=== PATIENT | male | born 1950 | race Caucasian/White ===

== ENCOUNTER 2017-08-24 15:10 | Emergency (ER) | payer SELFPAY ==
[2017-08-24 16:07] VITALS: BP 168/89
--- NOTE | 2017-08-24 16:07 | ER Document Report ---
ED General - General Chief Complaint: Blood Pressure Problem Stated Complaint: BLOOD PRESSURE PROBLEM Time Seen by Provider: 08/24/17 15:51 TRAVEL OUTSIDE OF THE [place] IN LAST 30 DAYS: No - HPI Patient complains to provider of: high blood pressure Onset: Just prior to arrival Notes: Patient states that he had a headache today. He took his blood pressure at [facility] and it was high. He then went to an urgent care where it was also high so he was sent here for evaluation. Patient states he has noHeadache at all. He does not have a history of hypertension. He has no other symptoms. - Related Data Allergies/Adverse Reactions: No Known Allergies Allergy (Unverified 08/01/15 11:38) Past Medical History - General Information source: Patient - Social History Smoking Status: Former Smoker Chew tobacco use (# tins/day): No Frequency of alcohol use: None Drug Abuse: None Family History: Reviewed & Not Pertinent Patient has suicidal ideation: No Patient has homicidal ideation: No - Past Medical History Cardiac Medical History: Reports: None Pulmonary Medical History: Reports: None Endocrine Medical History: Reports: Hx Hyperthyroidism, Hx Hypothyroidism Other: Patient had A thyroid tumor which was surgically removed July 2015 and the patient has been on thyroid replacement ever since. Renal/ Medical History: Reports: None. Denies: Hx Peritoneal Dialysis Malignancy Medical History: Reports None GI Medical History: Reports: None Musculoskeltal Medical History: Reports None Skin Medical History: Reports None Psychiatric Medical History: Reports: None Traumatic Medical History: Reports: None Infectious Medical History: Reports: None Past Surgical History: Reports: Hx Thyroid Surgery Review of Systems - Review of Systems Constitutional: No symptoms reported EENT: No symptoms reported Cardiovascular: No symptoms reported Respiratory: No symptoms reported Gastrointestinal: No symptoms reported Genitourinary: No symptoms reported Male Genitourinary: No symptoms reported Musculoskeletal: No symptoms reported Skin: No symptoms reported Hematologic/Lymphatic: No symptoms reported Neurological/Psychological: No symptoms reported Physical Exam - Vital signs Vitals: Temp Pulse Resp BP Pulse Ox 98.5 F 58 L 16 161/95 H 96 08/24/17 15:37 08/24/17 15:37 08/24/17 15:37 08/24/17 15:37 08/24/17 15:37 - Notes Notes: PHYSICAL EXAMINATION: GENERAL: Well-appearing, well-nourished and in no acute distress. HEAD: Atraumatic, normocephalic. EYES: Pupils equal round and reactive to light, extraocular movements intact, sclera anicteric, conjunctiva are normal. ENT: Nares patent, oropharynx clear without exudates. Moist mucous membranes. Healed surgical incisional scar to neck NECK: Normal range of motion, supple without lymphadenopathy LUNGS: Breath sounds clear to auscultation bilaterally and equal. No wheezes rales or rhonchi. HEART: Regular rate and rhythm without murmurs ABDOMEN: Soft, nontender, nondistended abdomen. No guarding, no rebound. No masses appreciated. Musculoskeletal: Normal range of motion, no pitting or edema. No cyanosis. NEUROLOGICAL: Cranial nerves grossly intact. Normal speech, normal gait. Normal sensory, motor exams PSYCH: Normal mood, normal affect. SKIN: Warm, Dry, normal turgor, no rashes or lesions noted. Course - Re-evaluation Re-evalutation: 08/24/17 16:46 I did talk to the patient extensively. I did tell him that we do not treat hypertension On a 1 time basis of a high reading. Patient denies history of hypertension in the past. I did tell him that hypertension can result from different things including white coat hypertension, stressors, medications or even illness. I told him to please go to [employer] a few times a week or invest in a blood pressure cuff from [employer] or another store where he can take his blood pressure and monitor it in a book a few times a week. I told him if he was symptomatic with headache or any other symptoms he was to record his blood pressure and then write down what he was feeling. Patient states he does not have insurance and he does not have a primary medical doctor. I did tell him to follow-up the care clinic. I told him he could always come back here if he was having any symptoms related to his high blood pressure.When I was talking to the patient he did tell me that he was taking a [employer] brand [id number] nasal decongestant. When I looked it up it did contain pseudoephedrine. He states he was taking it a few times daily in the last few weeks in order to prevent himself from getting ill.I told him to please refrain from this as the medication can in itself cause hypertension and headaches as well as jitteriness and insomnia.Patient verbalized understanding. He was agreeable to the discharge plan.He was discharged home in stable condition. - Vital Signs Vital signs: Temp Pulse Resp BP Pulse Ox 98.1 F 81 18 168/89 H 98 08/24/17 16:05 08/24/17 16:05 08/24/17 16:05 08/24/17 16:05 08/24/17 16:05 - EKG Interpretation by Me Rate: Normal - 60 bpm Temple/QRS: RBBB When compared to previous EKG there are: No significant change Discharge - Discharge Clinical Impression: High blood pressure Condition: Stable Disposition: HOME, SELF-CARE Instructions: High Blood Pressure ([facility]) Additional Instructions: Please stop taking the pseudoephedrine nasal spray as we described.Please purchase a blood pressure monitor or go to [employer] a few times a week to take your blood pressure and documented in a book.Please follow-up with the care clinic and bring this book with you so they can see how your blood pressures are running.Please follow-up in September or October as you stated for your thyroid check.Return to the emergency department if you have worsening symptoms or any other concerns. Referrals: [facility] [Provider Group] - Follow up in 3-5 days (Call in a.m. for follow-up appointment.)
--- NOTE | 2017-08-24 18:53 | EKG REPORT ---
SEVERITY:- ABNORMAL ECG - SINUS RHYTHM RIGHT BUNDLE BRANCH BLOCK : Confirmed by: Rizwan Gore MD 24-Aug-2017 18:53:07
== END 2017-08-24 16:12 | disposition home or self-care (01) ==
LOC: ER 15:10
DX: R03.0 Elevated blood-pressure reading, without diagnosis of hypertension (principal); R51 Headache; E03.9 Hypothyroidism, unspecified; Z87.891 Personal history of nicotine dependence
CPT/HCPCS: 93005; 93010; 99283

== ENCOUNTER 2017-08-26 14:01 | Emergency (ER) | payer SELFPAY ==
--- NOTE | 2017-08-26 14:26 | ER Document Report ---
ED Blood Pressure Problem - General Chief Complaint: High Blood Pressure Stated Complaint: BLOOD PRESSURE PROBLEM Time Seen by Provider: 08/26/17 14:19 Notes: This is a 67-year-old male to emergency department chief complaint of persistent headaches as well as hypertension. Was seen here a few days ago. Blood pressure was fairly unremarkable and was able to be discharged. Today presents with worsening headaches and went to a local pharmacy and did his blood pressure and it was noted to be high. Patient presented here for further evaluation. States he has previous history of 40+ year smoking history. History of thyroid resection on replacement therapy. Also had some abnormal chest mass which was removed a few years ago but was apparently not malignant. Does not take any blood pressure medications. Only medications he has been taking recently is [id number] cold medication with phenylephrine. Patient states that he thought it was okay to take because it said it did not have Sudafed in it. TRAVEL OUTSIDE OF THE [place] IN LAST 30 DAYS: No - HPI Patient complains to provider of: High blood pressure Onset: Last week Onset/Duration: Gradual, Constant Severity: Moderate Pain Level: 3 Associated symptoms: Headache. denies: Chest pain, Dizziness - Related Data Allergies/Adverse Reactions: No Known Allergies Allergy (Verified 08/26/17 14:02) Past Medical History - General Information source: Patient - Social History Smoking Status: Former Smoker Cigarette use (# per day): No Chew tobacco use (# tins/day): No Frequency of alcohol use: None Drug Abuse: None Lives with: Spouse/Significant other Family History: Reviewed & Not Pertinent Patient has suicidal ideation: No Patient has homicidal ideation: No - Past Medical History Cardiac Medical History: Reports: Hx Hypertension Pulmonary Medical History: Reports: Hx COPD Neurological Medical History: Reports: Other - Frequent headaches Endocrine Medical History: Reports: Hx Hyperthyroidism, Hx Hypothyroidism Renal/ Medical History: Denies: Hx Peritoneal Dialysis Past Surgical History: Reports: Hx Thyroid Surgery Review of Systems - Review of Systems Constitutional: denies: Fever, Malaise, Weakness EENT: denies: Blurred vision, Tearing, Double vision, Sinus pressure, Sinus discharge, Throat pain, Difficulty swallowing Cardiovascular: denies: Chest pain, Palpitations, Heart racing, Dizziness, Edema Respiratory: Short of breath. denies: Cough, Hurts to breathe, Wheezing Gastrointestinal: denies: Abdominal pain, Diarrhea, Nausea, Vomiting Genitourinary: denies: Burning, Dysuria, Discharge Musculoskeletal: denies: Back pain, Gout, Joint pain, Joint swelling, Muscle pain Skin: denies: Change in color, Dryness, Lesions, Rash Hematologic/Lymphatic: denies: Anemia, Blood clots, Easy bleeding, Easy bruising Neurological/Psychological: Headaches. denies: Paralysis, Seizure, Lost consciousness, Speech impairment, Numbness, Tingling, Tremor Physical Exam - Vital signs Vitals: Temp Pulse Resp BP Pulse Ox 98.1 F 57 L 16 159/86 H 97 08/26/17 14:06 08/26/17 14:06 08/26/17 14:06 08/26/17 14:06 08/26/17 14:06 Interpretation: Normal - General General appearance: Appears well, Alert - HEENT Head: Normocephalic, Atraumatic Eyes: Normal Pupils: PERRL - Respiratory Respiratory status: No respiratory distress Chest status: Nontender Breath sounds: Normal Chest palpation: Normal - Cardiovascular Rhythm: Regular Heart sounds: Normal auscultation Murmur: No - Abdominal Inspection: Normal Distension: No distension Bowel sounds: Normal Tenderness: Nontender Organomegaly: No organomegaly - Back Back: Normal, Nontender - Extremities General upper extremity: Normal inspection, Nontender, Normal color, Normal ROM , Normal temperature General lower extremity: Normal inspection, Nontender, Normal color, Normal ROM , Normal temperature, Normal weight bearing. No: Anny's sign - Neurological Neuro grossly intact: Yes Cognition: Normal Orientation: AAOx4 Sandra Coma Scale Eye Opening: Spontaneous Sandra Coma Scale Verbal: Oriented [place] Coma Scale Motor: Obeys Commands Sandra Coma Scale Total: 15 Speech: Normal Motor strength normal: LUE, RUE, LLE, RLE Sensory: Normal - Psychological Associated symptoms: Normal affect, Normal mood - Skin Skin Temperature: Warm Skin Moisture: Dry Skin Color: Normal Course - Re-evaluation Re-evalutation: 08/26/17 14:53 At this time based on the fact the patient's blood pressure is 190/100 will order labs, EKG, cardiac labs, BMP, chest x-ray. I am also concerned about his headaches with his blood pressure. Unlikely there will be anything abnormal on his brain however his heart rate is actually 56 so we will order a CT head with and without to look for any brain abnormalities. 08/26/17 18:[address] brain unremarkable. Blood pressure coming down nicely. Will start patient on some losartan. Advised him to follow-up with his regular doctor soon as possible for further treatment. Patient is comfortable with this plan. Will DC at this time in stable condition. - Vital Signs Vital signs: Temp Pulse Resp BP Pulse Ox 98.1 F 57 L 18 152/95 H 94 08/26/17 14:06 08/26/17 14:06 08/26/17 18:01 08/26/17 18:01 08/26/17 18:01 - Laboratory Result Diagrams: 08/26/17 14:39 08/26/17 14:39 Laboratory results interpreted by me: 08/26/17 08/26/17 08/26/17 14:39 14:39 14:39 Plt Count 105 L BUN 27 H TSH 0.14 L Urine Blood 08/26/17 14:57 Plt Count BUN TSH Urine Blood SMALL H - EKG Interpretation by Me EKG shows normal: Michie, QRS Complexes, ST-T Waves Michie/QRS: RBBB Discharge - Discharge Clinical Impression: Essential hypertension Condition: Good Disposition: HOME, SELF-CARE Instructions: High Blood Pressure ([facility]), High Blood Pressure, Requiring Treatment ([facility]) Additional Instructions: Please follow-up with your regular doctor soon as possible for further evaluation and treatment. We are starting you on some medication today. Please take it as prescribed. Prescriptions: Losartan Potassium [Cozaar 50 mg Tablet] 50 mg PO DAILY #30 tablet
--- NOTE | 2017-08-26 14:30 | ER Document Report ---
ED Medical Screen (RME) - General Chief Complaint: High Blood Pressure Stated Complaint: BLOOD PRESSURE PROBLEM Time Seen by Provider: 08/26/17 14:19 Mode of Arrival: Ambulatory Information source: Patient TRAVEL OUTSIDE OF THE [place] IN LAST 30 DAYS: No - HPI Patient complains to provider of: high blood pressure Notes: 08/26/17 14:29 Patient presents with high blood pressure. He was seen here for same 2 days ago. He was taking phenylephrine nasal spray at that time he was told to discontinue. States he has not taken any longer. Patient is asymptomatic. He states he went to [facility] and took his blood pressure it was high and he was instructed to come here. She has a history of hypothyroid and is on Synthroid after a total thyroidectomy 2016. 08/26/17 14:30 I have greeted and performed a rapid initial assessment of this patient. A comprehensive ED assessment and evaluation of the patient, analysis of test results and completion of the medical decision making process will be conducted by additional ED providers. PHYSICAL EXAMINATION: GENERAL: Well-appearing, well-nourished and in no acute distress. HEAD: Atraumatic, normocephalic. EYES: Pupils equal round extraocular movements intact, conjunctiva are normal. ENT: Nares patent NECK: Normal range of motion LUNGS: No respiratory distress Musculoskeletal: Normal range of motion NEUROLOGICAL: Normal speech, normal gait. PSYCH: Normal mood, normal affect. SKIN: Warm, Dry, normal turgor, no rashes or lesions noted. - Related Data Allergies/Adverse Reactions: No Known Allergies Allergy (Verified 08/26/17 14:02) Past Medical History - Social History Chew tobacco use (# tins/day): No Frequency of alcohol use: None Drug Abuse: None Endocrine Medical History: Reports: Hx Hyperthyroidism, Hx Hypothyroidism Renal/ Medical History: Denies: Hx Peritoneal Dialysis Past Surgical History: Reports: Hx Thyroid Surgery Physical Exam - Vital signs Vitals: Temp Pulse Resp BP Pulse Ox 98.1 F 57 L 16 159/86 H 97 08/26/17 14:06 08/26/17 14:06 08/26/17 14:06 08/26/17 14:06 08/26/17 14:06 Course - Vital Signs Vital signs: Temp Pulse Resp BP Pulse Ox 98.1 F 57 L 16 159/86 H 97 08/26/17 14:06 08/26/17 14:06 08/26/17 14:06 08/26/17 14:06 08/26/17 14:06
[2017-08-26 15:07] LABS: ABSOLUTE BASOPHILS # (AUTO) 0.1 10^3/uL (0.0-0.2); ABSOLUTE EOSINOPHILS # (AUTO) 0.3 10^3/uL (0.0-0.6); ABSOLUTE LYMPHOCYTES (AUTO) 1.4 10^3/uL (0.5-4.7); ABSOLUTE MONOCYTES (AUTO) 0.8 10^3/uL (0.1-1.4); ABSOLUTE NEUT (AUTO) 5.3 10^3/uL (1.7-8.2); BASOPHILS % (AUTO) 0.7 % (0-2); EOSINOPHILS % (AUTO) 3.3 % (0-6); HEMATOCRIT 44.4 % (37.9-51.0); HEMOGLOBIN 15.1 g/dL (13.5-17.0); LYMPHOCYTES % (AUTO) 17.8 % (13-45); MEAN CORPUSCULAR HEMOGLOBIN 29.6 pg (27.0-33.4); MEAN CORPUSCULAR HGB CONC 34.1 g/dL (32.0-36.0); MEAN CORPUSCULAR VOLUME 87 fl (80-97); MONOCYTES % (AUTO) 9.8 % (3-13); PLATELET COUNT 105 10^3/uL (150-450); RED BLOOD COUNT 5.11 10^6/uL (4.35-5.55); RED CELL DISTRIBUTION WIDTH 13.4 % (11.5-14.0); SEGMENTED NEUTROPHILS % (AUTO) 68.4 % (42-78); TOTAL CELLS COUNTED % (AUTO) 100 %; WHITE BLOOD COUNT 7.7 10^3/uL (4.0-10.5)
[2017-08-26 15:24] LABS: ALANINE AMINOTRANSFERASE 49 U/L (21-72); ALBUMIN 4.3 g/dL (3.5-5.0); ALKALINE PHOSPHATASE 104 U/L (38-126); ANION GAP 9 (5-19); ASPARTATE AMINO TRANSFERASE 28 U/L (17-59); BILIRUBIN,DIRECT 0.4 mg/dL (0.0-0.4); BILIRUBIN,TOTAL 0.5 mg/dL (0.2-1.3); BLOOD UREA NITROGEN 27 mg/dL (7-20); CALCIUM 9.8 mg/dL (8.4-10.2); CARBON DIOXIDE 27 mmol/L (22-30); CHLORIDE 105 mmol/L (98-107); GLUCOSE 103 mg/dL (75-110); POTASSIUM 4.3 mmol/L (3.6-5.0); SODIUM 141.1 mmol/L (137-145); TOTAL PROTEIN 7.2 g/dL (6.3-8.2)
[2017-08-26 15:26] LABS: APPEARANCE,URINE CLEAR; BILIRUBIN,URINE NEGATIVE (NEGATIVE); COLOR,URINE YELLOW; GLUCOSE, URINE NEGATIVE (NEGATIVE); KETONES,URINE NEGATIVE (NEGATIVE); LEUKOCYTE ESTERASE,URINE NEGATIVE (NEGATIVE); NITRITE,URINE NEGATIVE (NEGATIVE); PROTEIN,URINE NEGATIVE (NEGATIVE); URINE SPECIFIC GRAVITY 1.025; UROBILINOGEN,URINE NEGATIVE mg/dL (<2.0)
[2017-08-26] MEDS ORDERED: LOSARTAN POTASSIUM 25 MG TABLET PO ONE (15:26)
--- NOTE | 2017-08-26 15:34 | RADIOLOGY REPORT (SQ) ---
EXAM DESCRIPTION: CT HEAD COMBO COMPLETED DATE/TIME: 08/26/2017 3:22 pm REASON FOR STUDY: severe HTN, and Headaches for 2 weeks, COMPARISON: None. TECHNIQUE: Axial images acquired through the brain without and with intravenous contrast. Images re viewed with bone, brain and subdural windows. Images stored on PACS. All CT scanners at this facility use dose modulation, iterative reconstruction, and/or weight based d osing when appropriate to reduce radiation dose to as low as reasonably achievable (ALARA). [facility]: Dose Right [facility]: CareDose [facility]: Dose Right [facility]: Teradose 4D [facility]: [employer] CONTRAST TYPE AND DOSE: contrast/concentration: Isovue 370.00 mg/ml; Total Contrast Delivered: 50.0 ml; Total Saline Delivered: 50.0 ml RENAL FUNCTION: BUN 16; creatinine 0.76 RADIATION DOSE: CT Rad equipment meets quality standard of care and radiation dose reduction techniq ues were employed. CTDIvol: 64.6 mGy. DLP: 2326 mGy-cm.. LIMITATIONS: None. FINDINGS: VENTRICLES: Normal size and contour. CEREBRUM: No masses. No hemorrhage. No midline shift. Normal bowling/white matter differentiation. No ev idence for acute infarction. No enhancing lesions. CEREBELLUM: No masses. No hemorrhage. No alteration of density. No evidence for acute infarction. No enhancing lesions. EXTRA-AXIAL SPACES: No fluid collections. No enhancing lesions. ORBITS AND GLOBE: No intra- or extraconal masses. Normal contour of globe without masses. CALVARIUM: No fracture. PARANASAL SINUSES: No fluid or mucosal thickening. SOFT TISSUES: No mass or hematoma. OTHER: No other significant finding. IMPRESSION: NORMAL BRAIN CT WITHOUT AND WITH CONTRAST. EVIDENCE OF ACUTE STROKE: NO. TECHNICAL DOCUMENTATION: JOB ID: [id number] Quality ID # [id number]: Final reports with documentation of one or more dose reduction techniques (e.g., Au tomated exposure control, adjustment of the mA and/or kV according to patient size, use of iterative reconstruction technique) 2010 [employer]- All Rights Reserved
--- NOTE | 2017-08-26 15:36 | RADIOLOGY REPORT (SQ) ---
EXAM DESCRIPTION: CHEST PA/LAT COMPLETED DATE/TIME: 08/26/2017 3:28 pm REASON FOR STUDY: sob, htn COMPARISON: None. EXAM PARAMETERS: NUMBER OF VIEWS: two views TECHNIQUE: Digital Frontal and Lateral radiographic views of the chest acquired. RADIATION DOSE: NA LIMITATIONS: none FINDINGS: LUNGS AND PLEURA: No opacities, masses or pneumothorax. No pleural effusion. MEDIASTINUM AND HILAR STRUCTURES: No masses or contour abnormalities. HEART AND VASCULAR STRUCTURES: Heart normal size. No evidence for failure. BONES: No acute findings. HARDWARE: Surgical clips are seen in the midline at the level of the cervicothoracic junction. OTHER: No other significant finding. IMPRESSION: NO SIGNIFICANT RADIOGRAPHIC FINDING IN THE CHEST. TECHNICAL DOCUMENTATION: JOB ID: [id number] [employer]- All Rights Reserved
[2017-08-26 15:46] LABS: NT PRO BNP 50 pg/mL (5-900); TROPONIN I < 0.012 ng/mL
[2017-08-26 16:43] LABS: FREE T3 3.65 pg/mL (2.77-5.27); FREE T4 (FREE THYROXINE) 2.05 ng/dL (0.78-2.19)
--- NOTE | 2017-08-26 17:35 | EKG REPORT ---
SEVERITY:- ABNORMAL ECG - SINUS RHYTHM ATRIAL PREMATURE COMPLEX RIGHT BUNDLE BRANCH BLOCK : Confirmed by: Rizwan Gore MD 26-Aug-2017 17:35:04
[2017-08-26 18:13] VITALS: BP 152/95
== END 2017-08-26 18:49 | disposition home or self-care (01) ==
LOC: ER 14:01
DX: I10 Essential (primary) hypertension (principal); E89.0 Postprocedural hypothyroidism; R51 Headache; Z79.899 Other long term (current) drug therapy; Z87.891 Personal history of nicotine dependence
CPT/HCPCS: 36415; 70470; 71046; 80053; 81001; 83880; 84439; 84443; 84481; 84484; 85025; 93005; 93010; 99284

== ENCOUNTER 2019-03-07 09:34 | Emergency (ER) | payer MEDICARE ==
--- NOTE | 2019-03-07 10:06 | ER Document Report ---
ED Medical Screen (RME) - General Chief Complaint: Urinary Problem Stated Complaint: ABDOMINAL PAIN/UNABLE TO URINATE Time Seen by Provider: 03/07/19 10:03 Mode of Arrival: Ambulatory Information source: Patient Notes: Pt with acute urinary retention since last night. Hx of same 3 years ago, does nt have a Urologist. Exam: Large distended abdomen/bladder distention. I have greeted and performed a rapid initial assessment of this patient. A comprehensive ED assessment and evaluation of the patient, analysis of test results and completion of the medical decision making process will be conducted by additional ED providers. I have specifically instructed the patient or family members with the patient to immediately return to any nursing staff should anything change in the patient's condition or with their chief complaint. This medical record was dictated with voice recognizing software. There may be grammatical, syntax errors that are unintended. TRAVEL OUTSIDE OF THE [place] IN LAST 30 DAYS: No - Related Data Allergies/Adverse Reactions: No Known Allergies Allergy (Verified 03/07/19 09:37) Past Medical History - Past Medical History Cardiac Medical History: Reports: Hx Hypertension Pulmonary Medical History: Reports: Hx COPD Endocrine Medical History: Reports: Hx Hyperthyroidism, Hx Hypothyroidism Renal/ Medical History: Denies: Hx Peritoneal Dialysis Past Surgical History: Reports: Hx Thyroid Surgery Physical Exam - Vital signs Vitals: Temp Pulse Resp BP Pulse Ox 97.5 F 88 22 H 173/112 H 97 03/07/19 09:39 03/07/19 09:39 03/07/19 09:39 03/07/19 09:39 03/07/19 09:39 Course - Vital Signs Vital signs: Temp Pulse Resp BP Pulse Ox 97.5 F 88 22 H 173/112 H 97 03/07/19 09:39 03/07/19 09:39 03/07/19 09:39 03/07/19 09:39 03/07/19 09:39 - Laboratory Laboratory results interpreted by me: 03/07/19 10:18 Urine Blood LARGE H
[2019-03-07 10:51] LABS: APPEARANCE,URINE CLEAR; BILIRUBIN,URINE NEGATIVE (NEGATIVE); COLOR,URINE YELLOW; GLUCOSE, URINE NEGATIVE (NEGATIVE); KETONES,URINE NEGATIVE (NEGATIVE); LEUKOCYTE ESTERASE,URINE NEGATIVE (NEGATIVE); NITRITE,URINE NEGATIVE (NEGATIVE); PROTEIN,URINE NEGATIVE (NEGATIVE); URINE SPECIFIC GRAVITY 1.012; UROBILINOGEN,URINE NEGATIVE mg/dL (<2.0)
--- NOTE | 2019-03-07 12:00 | ER Document Report ---
ED GI/ - General Chief Complaint: Urinary Problem Stated Complaint: ABDOMINAL PAIN/UNABLE TO URINATE Time Seen by Provider: 03/07/19 10:03 Primary Care Provider: SHAWNA PHILLIPS MD [NO LOCAL MD] - Follow up as needed Mode of Arrival: Ambulatory Information source: Patient Notes: This is a 69-year-old male presents emergency department with chief complaint of acute urinary retention. Patient reports he has had this happen one time several years ago. He was seen by urologist at that time but does not see one anymore. He denies any recent abdominal pain, dysuria, nausea, vomiting or diarrhea. He reports he has not urinated in approximately 6 hours. TRAVEL OUTSIDE OF THE [place] IN LAST 30 DAYS: No - Related Data Allergies/Adverse Reactions: No Known Allergies Allergy (Verified 03/07/19 09:37) Past Medical History - General Information source: Patient - Social History Smoking Status: Former Smoker Frequency of alcohol use: None Drug Abuse: None Family History: Reviewed & Not Pertinent Patient has suicidal ideation: No Patient has homicidal ideation: No - Past Medical History Cardiac Medical History: Reports: Hx Hypertension Pulmonary Medical History: Reports: Hx COPD Endocrine Medical History: Reports: Hx Hyperthyroidism, Hx Hypothyroidism Renal/ Medical History: Denies: Hx Peritoneal Dialysis Past Surgical History: Reports: Hx Thyroid Surgery, Hx Tonsillectomy Review of Systems - Review of Systems Constitutional: No symptoms reported EENT: No symptoms reported Cardiovascular: No symptoms reported Respiratory: No symptoms reported Gastrointestinal: No symptoms reported Genitourinary: See HPI Male Genitourinary: No symptoms reported Musculoskeletal: No symptoms reported Skin: No symptoms reported Hematologic/Lymphatic: No symptoms reported Neurological/Psychological: No symptoms reported Physical Exam - Vital signs Vitals: Temp Pulse Resp BP Pulse Ox 97.5 F 88 22 H 173/112 H 97 03/07/19 09:39 03/07/19 09:39 03/07/19 09:39 03/07/19 09:39 03/07/19 09:39 - Notes Notes: PHYSICAL EXAMINATION: GENERAL: Well-appearing, well-nourished and in no acute distress. HEAD: Atraumatic, normocephalic. EYES: Pupils equal round and reactive to light, extraocular movements intact, sclera anicteric, conjunctiva are normal. ENT: Nares patent, oropharynx clear without exudates. Moist mucous membranes. NECK: Normal range of motion, supple without lymphadenopathy LUNGS: Breath sounds clear to auscultation bilaterally and equal. No wheezes rales or rhonchi. HEART: Regular rate and rhythm without murmurs ABDOMEN: Soft, nontender, distended abdomen. No guarding, no rebound. No masses appreciated. Musculoskeletal: Normal range of motion, no pitting or edema. No cyanosis. NEUROLOGICAL: Cranial nerves grossly intact. Normal speech, normal gait. Normal sensory, motor exams PSYCH: Normal mood, normal affect. SKIN: Warm, Dry, normal turgor, no rashes or lesions noted. Course - Re-evaluation Re-evalutation: Laboratory 03/07/19 10:18 Urine Color YELLOW Urine Appearance CLEAR Urine pH 6.0 Ur Specific [place] 1.012 Urine Protein NEGATIVE Urine Glucose (UA) NEGATIVE Urine Ketones NEGATIVE Urine Blood LARGE H Urine Nitrite NEGATIVE Urine Bilirubin NEGATIVE Urine Urobilinogen NEGATIVE Ur Leukocyte Esterase NEGATIVE Urine WBC (Auto) 1 Urine RBC (Auto) 43 Urine Mucus (Auto) RARE Urine Ascorbic Acid NEGATIVE Layne catheter was inserted and patient immediately had approximately 600 cc of clear yellow urine. Urinalysis was performed as outlined above. He does not appear to be any urinary tract infection. Patient reports he feels much improved after bladder was decompressed with a Layne catheter. He denies any other symptoms. Patient requesting to go home. Patient will be discharged home with the Layne catheter in place. Teaching was given to the family as to how to empty it etc. A leg bag was placed. Patient will follow-up with urology, they will call tomorrow to schedule an appointment. Patient and family verbalized understanding and agreement with discharge plan. The patient's emergency department workup and current diagnosis were explained to the patient and or family. Follow-up instructions were provided. Medications if prescribed were discussed. Instructions for when to return to the emergency department including specific worrisome symptoms were discussed with the patient and/or family. - Vital Signs Vital signs: Temp Pulse Resp BP Pulse Ox 97.7 F 84 18 144/93 H 98 03/07/19 12:14 03/07/19 12:14 03/07/19 12:14 03/07/19 12:14 03/07/19 12:14 - Laboratory Laboratory results interpreted by me: 03/07/19 10:18 Urine Blood LARGE H Discharge - Discharge Clinical Impression: Acute urinary retention Condition: Stable Disposition: HOME, SELF-CARE Additional Instructions: Urinary Retention Urinary retention is inability to empty the bladder. It can result from a urine infection, or from mechanical problems such as an enlarged prostate gland or swelling of the urethra. Drugs or alcohol can also lead to urine retention. The condition is usually treated by passage of a catheter. If the physician thinks the problem will continue, the catheter may be left in place for a few days. Sometimes drugs are used to stimulate the bladder if the physician feels that inadequate bladder contraction is the cause. If the condition leading to the retention is a chronic one, such as an enlarged prostate, you will be referred to a specialist for further care. Call the physician or return if you develop fever, flank or back pain, pain on urination, or recurrent difficulty passing the urine. Please keep the Layne catheter in place until seen by urology. The nursing staff will educate you on how to care for the catheter and how to empty the bag. Please call urology to schedule a follow-up appointment. Let them know you are seen in the emergency department and a catheter was placed for acute urinary retention. Return to the emergency department with any new or worsening symptoms. Referrals: SHAWNA PHILLIPS MD [NO LOCAL MD] - Follow up as needed
[2019-03-07 12:15] VITALS: BP 144/93
== END 2019-03-07 12:17 | disposition home or self-care (01) ==
LOC: ER 09:34
DX: R33.9 Retention of urine, unspecified (principal); I10 Essential (primary) hypertension; J44.9 Chronic obstructive pulmonary disease, unspecified; Z87.891 Personal history of nicotine dependence
CPT/HCPCS: 51702; 81001; 99283

== ENCOUNTER 2019-03-09 15:48 | Emergency (ER) | payer MEDICARE ==
--- NOTE | 2019-03-09 19:06 | ER Document Report ---
HPI - HPI Patient complains to provider of: hematuria Time Seen by Provider: 03/09/19 19:03 Quality of pain: No pain Pain Level: Denies Context: 69 yr old male pt with the listed pmh, here for concern of seeing possible blood in his catheter bag for 1 day. no abd/back/flank pain or any pain what so ever. no decreased urine out pt. he f/u with urology(juan f) yesterday and they increased his flomax from one pill to two pills daily. he had urinary retention 3 days ago and the navarrete was placed then. denies any complications with the navarrete or clogging or anuria. states it feels a little uncomfortable but is tolerable. denies any complication when the nurse initially put it in. no hx of this before. no change in color of urine or hematuria prior to today. no leaking or bleeding from urethra around the navarrete insertion into the urethra. has f/u with juan f urology, in 2 days to have navarrete removed. has been compliant with meds. no changes in meds or diet. hx of urinary retention in the past which was thought to be due to the anesthesia for a remote surgery, but no other time. no recent illness or other changes in meds or diet. no trauma to the area. no hx of diabetes or asthma. normal bms. no other uti sx. no testicular pain/swelling, penile dc/rash/lesions, or concerns for stds. denies swelling or hx of hernias. no abd surgeries unless otherwise noted. no recent abx or steroids. hasn't taken anything else for sx. denies prostate ca hx or hx of bph. states rogel did a prostate/rectal exam on him in office yesterday and he was told it was unremarkable. no uri sx. no rash. denies changes in color or caliber of stool. no other associated sx. Similar symptoms previously: No Recently seen / treated by doctor: Yes - ROS Systems Reviewed and Negative: Yes All other systems reviewed and negative - to include 10 systems, unless mentioned in the hpi - DERM Skin Color: Normal Past Medical History - General Information source: Patient, Relative - Social History Smoking Status: Never Smoker Frequency of alcohol use: None Drug Abuse: None Lives with: Family Family History: Reviewed & Not Pertinent Patient has suicidal ideation: No Patient has homicidal ideation: No - Past Medical History Cardiac Medical History: Reports: Hx Hypertension Pulmonary Medical History: Reports: Hx COPD Endocrine Medical History: Reports: Hx Hypothyroidism - after thyroidectomy. Denies: Hx Diabetes Mellitus Type 1, Hx Diabetes Mellitus Type 2 Renal/ Medical History: Denies: Hx Kidney Stones, Hx Peritoneal Dialysis Malignancy Medical History: Denies Hx Prostate Cancer, Denies Hx Testicular Canc er Past Surgical History: Reports: Hx Thyroid Surgery, Hx Tonsillectomy - Immunizations Immunizations up to date: Yes Vertical Provider Document - CONSTITUTIONAL Notes: >>>> PHYSICAL_EXAM: GENERAL_APPEARANCE: well_nourished, alert, cooperative, no_acute_distress, no obvious_discomfort. Pleasant, elderly white male, smiling, speaking in full sentences, easily sitting up, in no sign of pain or resp distress, nontoxic, adult female at bedside VITALS: reviewed, see vital signs table. HEAD: normocephalic. atraumatic. no mcgregor signs. no raccoon eyes. EYES: PERRL, EOMI, (-)scleral icterus. NOSE: no_nasal_discharge. MOUTH: (-)decreased moisture. THROAT: no_tonsilar_inflammation/hypertrophy/exudate. no lymphadenopathy NECK: supple, no_neck_tenderness, full rom. full strength. no meningeal signs. BACK: no_back_tenderness. CHEST_WALL: no_chest_tenderness. LUNGS: no_wheezing, (-)accessory muscle use, good air exchange bilateral. HEART: normal_rate, normal_rhythm,, ABDOMEN: normal_BS, soft, abdomen-diffuse non-tender, (-)guarding, (-)rebound, no distension or peritoneal signs. neg murphys. neg mcburneys. neg heel strike. neg obturator. neg psoas. neg rovsign. no cva tenderness GENITALS: no_testicular_tenderness/swelling, no_urethral_discharge, no_inguinal_hernia, no_ulcers_or_lesions on the genitals, no_lacerations on the genitals, penis and testicles otherwise wnl. uncircumsized male penis with navarrete catheter intact in the urethra, no drainage or bleeding around insertion site of the navarrete catheter into the urethra, yellow urine in leg bag. exam chaperoned by pt's significant other at bedside. pt consented to exam. exam without incident. RECTAL: deferred EXTREMITIES: strength 5/5 in all_extremities, good pulses in all_extremities, no_edema, no_swelling\tenderness. full rom. normal gait. brisk cap refill. 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 SKIN: warm, dry, good_color, no _rash. no grossly visible overlying skin changes to suggest trauma unless otherwise noted. NEURO: motor_intact, sensory_intact. MENTAL_STATUS: normal_affect, speech_clear, oriented_X_3, responds_appropriately to questions. - INFECTION CONTROL TRAVEL OUTSIDE OF THE [place] IN LAST 30 DAYS: No Course - Re-evaluation Re-evalutation: pt here for some hematuria visualized into his navarrete bag. has f/u with urology in 2 days. no sx. still having good urine out pt. no abd ttp on exam. navarrete intact without complication on exam. labs unremarkable other than a mild chronic and improved thrombocytopenia and hematuria without pyuria. will await ucx resu lts for possible initiation of abx pending sensitivities. advised sx care. drink plenty of fluids. cont plan of care as advised by urology. advised to f/u with urology/rogel in 1-2 days. return for any worsening symptoms. vss. well appearing. satting well on ra. neurononfocal. pt understands and agrees to plan. On reexam, pt remained stable. nontoxic. well appearing. pain controlled. tolerating po. requesting to go home. serial abd exams remain benign. good urine out pt in navarrete. Documentation achieved through voice recording which my lead to some occasional accidental typographical errors. Extensive efforts have been made to proof read documentation to make sure these are the least as possible. Category Date Time Status CBC WITH DIFF [HEME] Stat Lab 03/09/19 19:24 Completed COMPREHENSIVE METABOLIC PANEL [CHEM] Stat Lab 03/09/19 19:24 Completed URINALYSIS [URIN] Stat Lab 03/09/19 20:02 Completed URINE CULTURE [MC] Stat Lab 03/09/19 20:02 Completed - Vital Signs Vital signs: Temp Pulse Resp BP Pulse Ox 98.0 F 67 16 131/80 H 95 03/09/19 15:52 03/09/19 15:52 03/09/19 15:52 03/09/19 15:52 03/09/19 15:52 Temp Pulse Resp BP Pulse Ox 03/09/19 21:13 97.8 F 60 16 107/76 97 03/09/19 15:52 98.0 F 67 16 131/80 H 95 - Laboratory Result Diagrams: 03/09/19 19:24 03/09/19 19:24 Laboratory results interpreted by me: Labs- Entire Visit 03/09/19 03/09/19 03/09/19 19:24 19:24 20:02 WBC 8.5 RBC 4.68 Hgb 13.8 Hct 41.1 MCV 88 MCH 29.5 MCHC 33.5 RDW 14.6 H Plt Count 113 L Seg Neutrophils % 70.1 Lymphocytes % 18.5 Monocytes % 8.2 Eosinophils % 2.5 Basophils % 0.7 Absolute Neutrophils 5.9 Absolute Lymphocytes 1.6 Absolute Monocytes 0.7 Absolute Eosinophils 0.2 Absolute Basophils 0.1 Sodium 141.4 Potassium 4.2 Chloride 105 Carbon Dioxide 29 Anion Gap 7 BUN 20 Creatinine 0.91 Est GFR ( Amer) > 60 Est GFR (Non-Af Amer) > 60 Glucose 97 Calcium 9.0 Total Bilirubin 0.6 Direct Bilirubin 0.2 Neonat Total Bilirubin Not Reportable Neonat Direct Bilirubin Not Reportable Neonat Indirect Bili Not Reportable AST 16 L ALT 12 Alkaline Phosphatase 68 Total Protein 6.8 Albumin 4.0 Urine Color YELLOW Urine Appearance SLIGHTLY-CLOUDY Urine pH 5.0 Ur Specific [place] 1.027 Urine Protein 100 H Urine Glucose (UA) NEGATIVE Urine Ketones NEGATIVE Urine Blood LARGE H Urine Nitrite NEGATIVE Urine Bilirubin NEGATIVE Urine Urobilinogen NEGATIVE Ur Leukocyte Esterase NEGATIVE Urine WBC (Auto) 3 Urine RBC (Auto) >182 Squamous Epi Cells Auto <1 Urine Mucus (Auto) RARE Urine Ascorbic Acid NEGATIVE Discharge - Discharge Clinical Impression: History of urinary retention, Navarrete catheter in place, Thrombocytopenia Hematuria Qualifiers: Hematuria type: unspecified type Qualified Code(s): R31.9 - Hematuria, unspecified Condition: Good Disposition: HOME, SELF-CARE Instructions: Navarrete Catheter Care ([facility]), Hematuria ([facility]) Additional Instructions: Follow-up with urology in 1 to 2 days. Return for any worsening symptoms. keep your apt with dr rogel in 2 days and continue urology's plan of care. we will call for any abnormal results that require change in plan of care.
[2019-03-09 19:40] LABS: ABSOLUTE BASOPHILS # (AUTO) 0.1 10^3/uL (0.0-0.2); ABSOLUTE EOSINOPHILS # (AUTO) 0.2 10^3/uL (0.0-0.6); ABSOLUTE LYMPHOCYTES (AUTO) 1.6 10^3/uL (0.5-4.7); ABSOLUTE MONOCYTES (AUTO) 0.7 10^3/uL (0.1-1.4); ABSOLUTE NEUT (AUTO) 5.9 10^3/uL (1.7-8.2); BASOPHILS % (AUTO) 0.7 % (0-2); EOSINOPHILS % (AUTO) 2.5 % (0-6); HEMATOCRIT 41.1 % (37.9-51.0); HEMOGLOBIN 13.8 g/dL (13.5-17.0); LYMPHOCYTES % (AUTO) 18.5 % (13-45); MEAN CORPUSCULAR HEMOGLOBIN 29.5 pg (27.0-33.4); MEAN CORPUSCULAR HGB CONC 33.5 g/dL (32.0-36.0); MEAN CORPUSCULAR VOLUME 88 fl (80-97); MONOCYTES % (AUTO) 8.2 % (3-13); PLATELET COUNT 113 10^3/uL (150-450); RED BLOOD COUNT 4.68 10^6/uL (4.35-5.55); RED CELL DISTRIBUTION WIDTH 14.6 % (11.5-14.0); SEGMENTED NEUTROPHILS % (AUTO) 70.1 % (42-78); TOTAL CELLS COUNTED % (AUTO) 100 %; WHITE BLOOD COUNT 8.5 10^3/uL (4.0-10.5)
[2019-03-09 19:56] LABS: ALKALINE PHOSPHATASE 68 U/L (38-126); ANION GAP 7 (5-19); ASPARTATE AMINO TRANSFERASE 16 U/L (17-59); BILIRUBIN,DIRECT 0.2 mg/dL (0.0-0.4); BILIRUBIN,TOTAL 0.6 mg/dL (0.2-1.3); BLOOD UREA NITROGEN 20 mg/dL (7-20); CARBON DIOXIDE 29 mmol/L (22-30); CHLORIDE 105 mmol/L (98-107); GLUCOSE 97 mg/dL (75-110); POTASSIUM 4.2 mmol/L (3.6-5.0); TOTAL PROTEIN 6.8 g/dL (6.3-8.2)
[2019-03-09 20:39] LABS: APPEARANCE,URINE SLIGHTLY-CLOUDY; BILIRUBIN,URINE NEGATIVE (NEGATIVE); COLOR,URINE YELLOW; GLUCOSE, URINE NEGATIVE (NEGATIVE); KETONES,URINE NEGATIVE (NEGATIVE); LEUKOCYTE ESTERASE,URINE NEGATIVE (NEGATIVE); NITRITE,URINE NEGATIVE (NEGATIVE); PROTEIN,URINE 100 mg/dL (NEGATIVE); URINE SPECIFIC GRAVITY 1.027; UROBILINOGEN,URINE NEGATIVE mg/dL (<2.0)
[2019-03-09 21:18] VITALS: BP 107/76
== END 2019-03-09 21:18 | disposition home or self-care (01) ==
LOC: ER 15:48
DX: R31.9 Hematuria, unspecified (principal); D69.6 Thrombocytopenia, unspecified; R33.9 Retention of urine, unspecified; Z96.0 Presence of urogenital implants; I10 Essential (primary) hypertension; J44.9 Chronic obstructive pulmonary disease, unspecified
CPT/HCPCS: 36415; 80053; 81001; 85025; 87086; 99283

== ENCOUNTER → 2019-11-26 | Outpatient (CLI) | payer MEDICARE ==
--- NOTE | 2019-11-26 15:22 | RADIOLOGY REPORT (SQ) ---
EXAM DESCRIPTION: PET CT SKULL/THIGH IMAGES COMPLETED DATE/TIME: 11/26/2019 12:33 pm REASON FOR STUDY: R91.8 OTHER NONSPECIFIC ABNORMAL FINDING OF LUNG FIELD R91.8 OTHER NONSPECIFIC AB NORMAL FINDING OF LUNG FIELD COMPARISON: None. RADIONUCLIDE AND DOSE: 9.63 mCi F18 FDG The route of agent administration: Intravenous FASTING BLOOD SUGAR: 94 mg/dl CONTRAST TYPE AND DOSE: No CT contrast given. TECHNIQUE: Blood glucose level was verified. Above dose of FDG was injected intravenously. 2-D seg mented attenuation correction images were obtained from the base of the skull to the midthighs. Nonc ontrast CT images were obtained for attenuation correction and fusion with emission images. CT image s were performed without oral or intravenous contrast and are not sensitive for parenchymal lesions. A series of overlapping emission PET images were obtained. Images reviewed and manipulated at [facility] work station by the radiologist. Images stored on PACS. LIMITATIONS: None. FINDINGS: HEAD AND NECK: No areas of abnormal metabolic activity in the soft tissues of the head and neck. CHEST: There is an ill-defined spiculated mass in the left hilum that extends into the left upper lob e and demonstrates avid FDG uptake with a maximum SUV of 18.2. The opacities posterior to the mass i n the lingula are nonspecific and could represent an extension of the mass, postobstructive pneumonia or lymphangitic carcinomatosis. The 8 mm spiculated nodule in the apical segment of the left upper lobe (image 43 of series 3) demons trates no abnormal FDG uptake (the maximum SUVs 1.4 ; for reference the average SUV of the mediastina l blood pool is 1.9). There is a string of pleural-based nodules along the cardiac surface of the left hemithorax that demo nstrate elevated FDG uptake with a maximum SUVs that range up to 8. There are borderline enlarged right upper peritracheal, right lower paratracheal, left lower paratrac heal, and pericardial lymph nodes that measure up to 9 mm in short axis diameter and have maximum SUV s that measure up to 4.6. ABDOMEN AND PELVIS: The liver demonstrates heterogeneous nonfocal FDG uptake with an average SUV of 2 .7. There is a hypermetabolic hypodense nodule within segment 3 of the liver (maximum SUV of 20.4) t hat measures 2.5 cm in transverse diameter. PROXIMAL LOWER EXTREMITIES: No areas of abnormal metabolic activity in the soft tissues of the lower extremities. BONES: There is an osteolytic hypermetabolic lesion that arises from and erodes the right posterior 6 th rib ; the lesion measures 6.6 x 3.9 cm and has a maximum SUV of 23. There is a 2nd osteolytic les ion within the right superior pubic ramus that measures 20 x 16 mm and has a maximum SUV of 16.8. ADDITIONAL CT FINDINGS: The wall of the gallbladder is thickened and calcified. The spleen is normal in size. There is an exophytic cyst that arises from the superior cortex of the right kidney and me asures 4.7 x 5.3 cm. The prostate gland is enlarged and heterogeneous. There is colonic diverticulo sis without diverticulitis. OTHER: No other findings. IMPRESSION: 1. Dominant ill-defined spiculated and hypermetabolic mass in the left hilum that extend s into the left upper lobe concerning for a malignant neoplasm. 2. The opacities posterior to the mass in the lingula demonstrate heterogeneous FDG uptake and could represent an extension of the mass, postobstructive pneumonia or lymphangitic carcinomatosis. 3. String of pleural-based nodules along the cardiac surface of the left hemithorax concerning for pl eural metastases. 4. Osteolytic hypermetabolic lesions within the right posterior 6th rib and right superior pubic claus us concerning for metastases. 5. Hypermetabolic hypodense lesion within segment 3 of the liver concerning for metastases. TECHNICAL DOCUMENTATION: JOB ID: [id number] 2010 [employer]- All Rights Reserved Reading location - IP/workstation name: [email or web address]
== END ==
LOC: RAD 08:56
PROVIDERS: ATTEND Internal Medicine Hematology & Oncology
DX: R91.8 Other nonspecific abnormal finding of lung field (principal); K76.9 Liver disease, unspecified
CPT/HCPCS: 78815; A9552

== ENCOUNTER 2019-12-02 09:01 | Day surgery (SDC) | payer MEDICARE ==
[2019-12-02 09:49] LABS: HEMOGLOBIN 13.1 g/dL (13.5-17.0); MEAN CORPUSCULAR HEMOGLOBIN 30.6 pg (27.0-33.4); MEAN CORPUSCULAR HGB CONC 35.3 g/dL (32.0-36.0); MEAN CORPUSCULAR VOLUME 87 fl (80-97); PLATELET COUNT 147 10^3/uL (150-450); RED BLOOD COUNT 4.27 10^6/uL (4.35-5.55); RED CELL DISTRIBUTION WIDTH 13.1 % (11.5-14.0); WHITE BLOOD COUNT 7.2 10^3/uL (4.0-10.5)
[2019-12-02] MEDS ORDERED: OXYCODONE-ACETAMINOPHEN 5-325 MG TABLET ONE (10:03)
[2019-12-02] MEDS ORDERED: OXYCODONE HCL IR 5 MG TABLET ONE (10:04)
[2019-12-02 10:12] LABS: INTERNATIONAL RATION (INR) 1.08; PARTIAL THROMBOPLASTIN TIME 33.6 SEC (23.5-35.8)
[2019-12-02 10:15] LABS: BLOOD UREA NITROGEN 16 mg/dL (7-20)
[2019-12-02] MEDS ORDERED: OXYCODONE-ACETAMINOPHEN 5-325 MG TABLET PO ONE (10:15)
[2019-12-02] MEDS ORDERED: OXYCODONE HCL IR 5 MG TABLET PO ONE (10:15)
[2019-12-02] MEDS ORDERED: MIDAZOLAM 2 MG/2 ML INJ ONE (10:55)
[2019-12-02] MEDS ORDERED: FENTANYL CITRATE INJ/PF 100 MCG/2 ML AMPUL ONE (10:56)
--- NOTE | 2019-12-02 16:39 | RADIOLOGY REPORT (SQ) ---
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 FLUORO TIME: 5.7 seconds. 89 images submitted to PACS. LIMITATIONS: None. PROCEDURE: The procedure, risks, benefits, and alternatives were discussed with the patient in the p reprocedural area, and all questions were answered. Informed consent was obtained verbally and in wri ting. The patient was then brought to the CT suite, positioned prone on the CT gurney, and a time-out was p erformed. After that, axial images of the chest were obtained for targeting of the osteolytic lesion that arises from and erodes the right posterior 6th rib. Based on review of the axial images an renetta ropriate access site was selected on the skin. The area around selected access site was then prepped and draped with 2% chlorhexidine utilizing tripp dard sterile technique. After that, the access site was infiltrated with 1% lidocaine and an incisio n was made in the skin with a #11 blade. A 17 gauge coaxial needle was then advanced through the skin incision and into the lesion utilizing CT fluoroscopic guidance. After that, the inner stylet of the coaxial needle was removed and 3 18 gauge core samples were obtained - the samples were collected an d submitted to cytopathology in formalin. The coaxial needle was then removed and CT-fluoroscopic images of the chest were repeated and reviewe d ; the images demonstrated no acute biopsy-related complication. The patient tolerated the procedure well without immediate complication. At the end of the procedure the patient's condition was unchanged from the preprocedural baseline. IV conscious sedation was administered at the direction of the performing physician by a carolyn banuelos. 1 milligrams of Versed and 50 micrograms of fentanyl. Physiologic monitoring was provided befor e, during, and after sedation. The total sedation time was 30 minutes. Documentation of [id number] time the performing proceduralist spent monitoring the patient: 5 lamonte tiffanie. IMPRESSION: Successful CT-guided biopsy of the osteolytic lesion that arises from and erodes the rig ht posterior 6th rib as detailed above. COMMENT: Patient medication list reviewed: Yes- Quality ID# [id number]:Eligible professional attests to doc umenting in the medical record they obtained, updated, or reviewed the patient's current medications. Quality ID #76: The patient was prepped and draped using maximum sterile barrier technique including cap, mask, sterile gown, sterile gloves, a large sterile sheet, hand hygiene, and 2% Chlorhexidine fo r cutaneous antisepsis. When ultrasound is used, sterile ultrasound techniques are followed requiring sterile gel and sterile probes. Quality ID 145: Final reports for procedures using fluoroscopy that document radiation exposure sharyn efren, or exposure time and number of fluorographic images (if radiation exposure indices are not avail able) Quality ID# 436: Final reports with documentation of one or more dose reduction techniques (e.g., Aut omated exposure control, adjustment of the mA and/or kV according to patient size, use of iterative r econstruction technique) TECHNICAL DOCUMENTATION: JOB ID: [id number] 2010 [employer]- All Rights Reserved rev Reading location - IP/workstation name: [email or web address]
--- NOTE | 2019-12-02 16:39 | RADIOLOGY REPORT (SQ) ---
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 FLUORO TIME: 5.7 seconds. 89 images submitted to PACS. LIMITATIONS: None. PROCEDURE: The procedure, risks, benefits, and alternatives were discussed with the patient in the p reprocedural area, and all questions were answered. Informed consent was obtained verbally and in wri ting. The patient was then brought to the CT suite, positioned prone on the CT gurney, and a time-out was p erformed. After that, axial images of the chest were obtained for targeting of the osteolytic lesion that arises from and erodes the right posterior 6th rib. Based on review of the axial images an renetta ropriate access site was selected on the skin. The area around selected access site was then prepped and draped with 2% chlorhexidine utilizing tripp dard sterile technique. After that, the access site was infiltrated with 1% lidocaine and an incisio n was made in the skin with a #11 blade. A 17 gauge coaxial needle was then advanced through the skin incision and into the lesion utilizing CT fluoroscopic guidance. After that, the inner stylet of the coaxial needle was removed and 3 18 gauge core samples were obtained - the samples were collected an d submitted to cytopathology in formalin. The coaxial needle was then removed and CT-fluoroscopic images of the chest were repeated and reviewe d ; the images demonstrated no acute biopsy-related complication. The patient tolerated the procedure well without immediate complication. At the end of the procedure the patient's condition was unchanged from the preprocedural baseline. IV conscious sedation was administered at the direction of the performing physician by a carolyn banuelos. 1 milligrams of Versed and 50 micrograms of fentanyl. Physiologic monitoring was provided befor e, during, and after sedation. The total sedation time was 30 minutes. Documentation of [id number]-qd-jnpi time the performing proceduralist spent monitoring the patient: 5 lamonte tiffanie. IMPRESSION: Successful CT-guided biopsy of the osteolytic lesion that arises from and erodes the rig ht posterior 6th rib as detailed above. COMMENT: Patient medication list reviewed: Yes- Quality ID# 130:Eligible professional attests to doc umenting in the medical record they obtained, updated, or reviewed the patient's current medications. Quality ID #76: The patient was prepped and draped using maximum sterile barrier technique including cap, mask, sterile gown, sterile gloves, a large sterile sheet, hand hygiene, and 2% Chlorhexidine fo r cutaneous antisepsis. When ultrasound is used, sterile ultrasound techniques are followed requiring sterile gel and sterile probes. Quality ID 145: Final reports for procedures using fluoroscopy that document radiation exposure sharyn efren, or exposure time and number of fluorographic images (if radiation exposure indices are not avail able) Quality ID# 436: Final reports with documentation of one or more dose reduction techniques (e.g., Aut omated exposure control, adjustment of the mA and/or kV according to patient size, use of iterative r econstruction technique) TECHNICAL DOCUMENTATION: JOB ID: [id number] 2010 [employer]- All Rights Reserved rev Reading location - IP/workstation name: [email or web address]
[2019-12-02 17:59] VITALS: BP 108/72
== END 2019-12-02 13:30 | disposition home or self-care (01) ==
LOC: RAD 09:01
PROVIDERS: ATTEND Internal Medicine Hematology & Oncology
DX: C78.01 Secondary malignant neoplasm of right lung (principal); R91.1 Solitary pulmonary nodule; J44.9 Chronic obstructive pulmonary disease, unspecified; K21.9 Gastro-esophageal reflux disease without esophagitis; I10 Essential (primary) hypertension; E03.9 Hypothyroidism, unspecified; Z87.891 Personal history of nicotine dependence; Z79.899 Other long term (current) drug therapy; Z79.01 Long term (current) use of anticoagulants
CPT/HCPCS: 36415; 84520; 82565; 85027; 85610; 85730; 88342 ×2; 88341 ×2; 88305 ×2; 77012; 32405; J2250; J3010; A9270 ×2

== ENCOUNTER → 2019-12-09 | Outpatient (CLI) | payer MEDICARE ==
--- NOTE | 2019-12-09 11:52 | RADIOLOGY REPORT (SQ) ---
EXAM DESCRIPTION: CTA CHEST IMAGES COMPLETED DATE/TIME: 12/09/2019 11:36 am REASON FOR STUDY: R07.9 CHEST PAIN, UNSPECIFIED, I26.09 OTHER PULMONARY EMBOLISM WITH ACUTE C R07.9 CHEST PAIN, UNSPECIFIED I26.09 OTHER PULMONARY EMBOLISM WITH ACUTE COR PULMONALE COMPARISON: 12/02/2019, PET-CT dated 11/26/2019 TECHNIQUE: CT scan of the chest performed using helical scanning technique with dynamic intravenous contrast injection. Images reviewed with lung, soft tissue and bone windows. Reconstructed coronal and sagittal MPR images reviewed. Additional 3 dimensional post-processing performed to develop Maximal Intensity Projection images (RI P). All images stored on PACS. All CT scanners at this facility use dose modulation, iterative reconstruction, and/or weight based d osing when appropriate to reduce radiation dose to as low as reasonably achievable (ALARA). [facility]: Dose Right [facility]: CareDose [facility]: Dose Right [facility]: Teradose 4D [facility]: Cycle CONTRAST TYPE AND DOSE: contrast/concentration: Isovue 350.00 mg/ml; Total Contrast Delivered: 64.0 ml; Total Saline Delivered: 69.6 ml Contrast bolus adequate for pulmonary arteries and aorta. RENAL FUNCTION: BUN 16, creatinine 0.71 RADIATION DOSE: CT Rad equipment meets quality standard of care and radiation dose reduction techniq ues were employed. CTDIvol: 6.6 - 21.9 mGy. DLP: 818 mGy-cm. . LIMITATIONS: None. FINDINGS: LUNGS AND PLEURA: Small left pleural effusion increased from prior PET-CT. Dense consolid ation in the lingula and left upper lobe secondary to the central mass has increased. Right-sided ch est wall metastasis may be slightly larger in size. There is rib destruction. Left small apical les ion is unchanged. AORTA AND GREAT VESSELS: No aneurysm. Contrast bolus not optimized for the aorta. HEART: No pericardial effusion. No significant coronary artery calcifications. PULMONARY ARTERIES: No emboli visualized in the main pulmonary arteries or the segmental branches. HILAR AND MEDIASTINAL STRUCTURES: Persistent small mediastinal nodes. HARDWARE: None in the chest. UPPER ABDOMEN: Calcification within the gallbladder wall is again noted. Hypoattenuating lesion in t he left lobe of liver is not significantly changed this measures approximately 2.3 cm in greatest amandeep meter. THYROID AND OTHER SOFT TISSUES: No masses. No adenopathy. BONES: Stable in appearance. 3D MIPS: Confirm above findings. OTHER: No other significant finding. IMPRESSION: 1. No pulmonary emboli. 2. Small left pleural effusion. 3. Consolidative changes in the left upper lobe and lingula have increased when compared TURP recent PET secondary to the central obstructing mass. 4. Right posterior chest wall mass has slightly increased in size. COMMENT: Quality ID # 436: Final reports with documentation of one or more dose reduction techniques (e.g., Automated exposure control, adjustment of the mA and/or kV according to patient size, use of iterative reconstruction technique) TECHNICAL DOCUMENTATION: JOB ID: [id number] 2010 [employer]- All Rights Reserved Reading location - IP/workstation name: [email or web address]
== END ==
LOC: RAD 11:04
PROVIDERS: ATTEND Internal Medicine Hematology & Oncology
DX: R07.9 Chest pain, unspecified (principal); J90 Pleural effusion, not elsewhere classified; I26.09 Other pulmonary embolism with acute cor pulmonale; R91.8 Other nonspecific abnormal finding of lung field
CPT/HCPCS: 71275

== ENCOUNTER 2019-12-19 09:52 | Emergency (ER) | payer MEDICARE ==
--- NOTE | 2019-12-19 10:32 | ER Document Report ---
ED Medical Screen (RME) - General Chief Complaint: Leg Swelling Stated Complaint: LEG PAIN Time Seen by Provider: 12/19/19 10:30 Primary Care Provider: KEMAL VILLELA MD [Primary Care Provider] - Follow up as needed Mode of Arrival: Wheelchair Information source: Patient Notes: 69-year-old male presented to ED for possible jaundice new onset lung cancer supposed to start chemotherapy soon pain in his right leg with swelling to both legs. He was sent in by his doctor to be evaluated for jaundice and his leg swelling. They want to start his chemo but he needs these evaluated before he can start his chemo. Patient is alert and oriented he does have all of his medications with him to include morphine and fentanyl patches. Once these are recorded they need to be taken back out to his who is in the car. His 's phone number is listed on his notebook which is in the medicines. Patient is able to answer questions but does not know all of the history. I have greeted and performed a rapid initial assessment of this patient. A comprehensive ED assessment and evaluation of the patient, analysis of test results and completion of medical decision making process will be conducted by an additional ED providers. TRAVEL OUTSIDE OF THE [place] IN LAST 30 DAYS: No - Related Data Allergies/Adverse Reactions: No Known Allergies Allergy (Verified 03/09/19 15:48) Past Medical History - Past Medical History Cardiac Medical History: Reports: Hx Hypertension Denies: Hx Coronary Artery Disease, Hx Heart Attack Pulmonary Medical History: Reports: Hx Asthma, Hx COPD, Hx Pneumonia Denies: Hx Bronchitis Neurological Medical History: Denies: Hx Cerebrovascular Accident, Hx Seizures Endocrine Medical History: Reports: Hx Hyperthyroidism, Hx Hypothyroidism - after thyroidectomy. Denies: Hx Diabetes Mellitus Type 1, Hx Diabetes Mellitus Type 2 Renal/ Medical History: Denies: Hx Kidney Stones, Hx Peritoneal Dialysis Malignancy Medical History: Denies Hx Prostate Cancer, Denies Hx Testicular Cancer Musculoskeltal Medical History: Reports Hx Arthritis Past Surgical History: Reports: Hx Thyroid Surgery, Hx Tonsillectomy - Immunizations Immunizations up to date: Yes Hx Diphtheria, Pertussis, Tetanus Vaccination: No Physical Exam - Vital signs Vitals: Temp Pulse Resp BP Pulse Ox 98.3 F 109 H 20 118/83 95 12/19/19 09:55 12/19/19 09:55 12/19/19 09:55 12/19/19 09:55 12/19/19 09:55 Course - Vital Signs Vital signs: Temp Pulse Resp BP Pulse Ox 98.3 F 109 H 20 118/83 95 12/19/19 09:55 12/19/19 09:55 12/19/19 09:55 12/19/19 09:55 12/19/19 09:55 Doctor's Discharge - Discharge Referrals: KEMAL VILLELA MD [Primary Care Provider] - Follow up as needed
--- NOTE | 2019-12-19 11:12 | RADIOLOGY REPORT (SQ) ---
EXAM DESCRIPTION: HIP RIGHT AP/LATERAL IMAGES COMPLETED DATE/TIME: 12/19/2019 9:48 am REASON FOR STUDY: Pain COMPARISON: None. NUMBER OF VIEWS: Two views. TECHNIQUE: AP pelvis and additional frog-leg view of the right hip. LIMITATIONS: None. FINDINGS: MINERALIZATION: Normal. RIGHT HIP: No fracture or dislocation. No worrisome bone lesions. Marginal osteophytes at the femor al head and acetabulum. Mild subchondral sclerosis and cystic change. LEFT HIP: No fracture or dislocation. No worrisome bone lesions. Marginal osteophytes of the femora l head and acetabulum. Mild to moderate subchondral sclerosis and cystic change. PUBIS AND ISCHIUM: No fracture. PELVIS: No fracture. SACRUM: No fracture or dislocation. No worrisome bone lesions. LOWER LUMBAR SPINE: Spondylosis and degenerative disc disease. No fracture. SOFT TISSUES: No findings. OTHER: No other significant finding. 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 No acute frac ture or dislocation. TECHNICAL DOCUMENTATION: JOB ID: [id number] [employer]- All Rights Reserved Reading location - IP/workstation name: [email or web address]
--- NOTE | 2019-12-19 12:25 | RADIOLOGY REPORT (SQ) ---
EXAM DESCRIPTION: VENOUS UNILATERAL LOWER IMAGES COMPLETED DATE/TIME: 12/19/2019 12:15 pm REASON FOR STUDY: Swelling history of cancer COMPARISON: None. TECHNIQUE: Dynamic and static bowling scale and color images acquired of the right leg venous system. S elected spectral images acquired with additional compression and augmentation maneuvers. The contrala teral common femoral vein and saphenofemoral junction were also imaged. Images stored on PACS. LIMITATIONS: None. FINDINGS: COMMON FEMORAL: Normal phasicity, compression and augmentation. No visualized echogenic ma terial on bowling scale. No defects on color images. FEMORAL: Normal compression and augmentation. No visualized echogenic material on bowling scale. No defe cts on color images. POPLITEAL: Normal compression, augmentation. No visualized echogenic material on bowling scale. No defec ts on color images. CALF VESSELS: Normal compression, augmentation. No visualized echogenic material on bowling scale. No de fects on color images. GSV and SSV: Normal compression, augmentation. No visualized echogenic material on bowling scale. No def ects on color images. ANY DEEP VENOUS INSUFFICIENCY: Not evaluated. ANY EVIDENCE OF POPLITEAL CYST: No. OTHER: No other significant finding. CONTRALATERAL COMMON FEMORAL VEIN AND SAPHENOFEMORAL JUNCTION: Normal phasicity, compression and augmentation. No visualized echogenic material on bowling scale. No de fects on color images. IMPRESSION: NO EVIDENCE DVT OR SVT IN THE RIGHT LEG. TECHNICAL DOCUMENTATION: JOB ID: [id number] 2010 [employer]- All Rights Reserved Reading location - IP/workstation name: [email or web address]
[2019-12-19 12:36] LABS: ABSOLUTE LYMPHOCYTES (AUTO) 0.7 10^3/uL (0.5-4.7); ABSOLUTE MONOCYTES (AUTO) 1.3 10^3/uL (0.1-1.4); ABSOLUTE NEUT (AUTO) 8.6 10^3/uL (1.7-8.2); BASOPHILS % (AUTO) 0.4 % (0-2); EOSINOPHILS % (AUTO) 0.3 % (0-6); HEMATOCRIT 37.6 % (37.9-51.0); HEMOGLOBIN 12.9 g/dL (13.5-17.0); LYMPHOCYTES % (AUTO) 6.2 % (13-45); MEAN CORPUSCULAR HEMOGLOBIN 30.2 pg (27.0-33.4); MEAN CORPUSCULAR HGB CONC 34.3 g/dL (32.0-36.0); MEAN CORPUSCULAR VOLUME 88 fl (80-97); MONOCYTES % (AUTO) 12.5 % (3-13); PLATELET COUNT 222 10^3/uL (150-450); RED BLOOD COUNT 4.27 10^6/uL (4.35-5.55); RED CELL DISTRIBUTION WIDTH 13.3 % (11.5-14.0); SEGMENTED NEUTROPHILS % (AUTO) 80.6 % (42-78); TOTAL CELLS COUNTED % (AUTO) 100 %; WHITE BLOOD COUNT 10.6 10^3/uL (4.0-10.5)
[2019-12-19 13:03] LABS: ALBUMIN 3.6 g/dL (3.5-5.0); ALKALINE PHOSPHATASE 320 U/L (38-126); ANION GAP 6 (5-19); ASPARTATE AMINO TRANSFERASE 38 U/L (17-59); BILIRUBIN,DIRECT 0.2 mg/dL (0.0-0.4); BILIRUBIN,TOTAL 0.7 mg/dL (0.2-1.3); BLOOD UREA NITROGEN 20 mg/dL (7-20); CARBON DIOXIDE 37 mmol/L (22-30); CHLORIDE 93 mmol/L (98-107); GLUCOSE 142 mg/dL (75-110); POTASSIUM 4.3 mmol/L (3.6-5.0); TOTAL PROTEIN 7.1 g/dL (6.3-8.2)
[2019-12-19 13:11] LABS: CALCIUM 12.3 mg/dL (8.4-10.2)
[2019-12-19 14:28] LABS: APPEARANCE,URINE SLIGHTLY-CLOUDY; BILIRUBIN,URINE NEGATIVE (NEGATIVE); CALCIUM OXALATE CRYSTALS,URINE FEW /HPF; COLOR,URINE AMBER; GLUCOSE, URINE NEGATIVE (NEGATIVE); KETONES,URINE NEGATIVE (NEGATIVE); LEUKOCYTE ESTERASE,URINE TRACE (NEGATIVE); NITRITE,URINE NEGATIVE (NEGATIVE); PROTEIN,URINE NEGATIVE (NEGATIVE); URINE SPECIFIC GRAVITY 1.018
[2019-12-19] MEDS ORDERED: ONDANSETRON HCL INJ/PF 4 MG/2 ML SDV IV ONE (16:00)
[2019-12-19] MEDS ORDERED: MORPHINE SULFATE 10 MG/ML INJ IV ONE (16:00)
[2019-12-19] MEDS ORDERED: NORMAL SALINE 500 ML IV ONE (16:01)
[2019-12-19] MEDS ORDERED: ZOLEDRONIC ACID 4 MG/100 ML RTU IV STA (16:08)
[2019-12-19] MEDS ORDERED: ZOLEDRONIC ACID 4 MG/100 ML RTU IV ONE (16:30)
--- NOTE | 2019-12-19 19:00 | EKG REPORT ---
SEVERITY:- ABNORMAL ECG - SINUS RHYTHM RIGHT BUNDLE BRANCH BLOCK : Confirmed by: Rizwan Gore MD 19-Dec-2019 19:00:15
--- NOTE | 2019-12-19 19:25 | RADIOLOGY REPORT (SQ) ---
EXAM DESCRIPTION: CHEST SINGLE VIEW IMAGES COMPLETED DATE/TIME: 12/19/2019 7:12 pm REASON FOR STUDY: sobr COMPARISON: 08/26/2017 EXAM PARAMETERS: NUMBER OF VIEWS: One view. TECHNIQUE: Single frontal radiographic view of the chest acquired. RADIATION DOSE: NA LIMITATIONS: None. FINDINGS: LUNGS AND PLEURA: Fairly dense opacification in the left mid and lower lung. MEDIASTINUM AND HILAR STRUCTURES: No masses. Contour normal. HEART AND VASCULAR STRUCTURES: Heart normal in size. Normal vasculature. BONES: No acute findings. HARDWARE: None in the chest. OTHER: No other significant finding. IMPRESSION: Left lower lobe possibly a lingular pneumonia TECHNICAL DOCUMENTATION: JOB ID: [id number] 2010 [employer]- All Rights Reserved Reading location - IP/workstation name: [email or web address]
--- NOTE | 2019-12-19 19:58 | ER Document Report ---
Entered by LOUISE TUCKER SCRIBE 12/19/19 1559 Acting as scribe for:ALIN GIANG MD ED Extremity Problem, Lower - General Chief Complaint: Leg Swelling Stated Complaint: LEG PAIN Time Seen by Provider: 12/19/19 10:30 Primary Care Provider: KEMAL VILLELA MD [Primary Care Provider] - Follow up as needed Mode of Arrival: Wheelchair Information source: Patient Notes: This 69 year old male patient presents to the emergency department today with complaints of right thigh pain. Patient has known stage 4 lung cancer with metastasis to the liver and bone. This is a recent diagnosis, 1 month ago, and he does not know if he has cancer in this area that is painful today or not. TRAVEL OUTSIDE OF THE [place] IN LAST 30 DAYS: No - Related Data Allergies/Adverse Reactions: No Known Allergies Allergy (Verified 03/09/19 15:48) Past Medical History - General Information source: Patient - Social History Smoking Status: Former Smoker Cigarette use (# per day): No Frequency of alcohol use: None Drug Abuse: None Lives with: Family Family History: Reviewed & Not Pertinent Patient has homicidal ideation: No - Past Medical History Cardiac Medical History: Reports: Hx Hypertension Pulmonary Medical History: Reports: Hx Asthma, Hx COPD, Hx Pneumonia Endocrine Medical History: Reports: Hx Hyperthyroidism, Hx Hypothyroidism - after thyroidectomy Musculoskeletal Medical History: Reports Hx Arthritis Past Surgical History: Reports: Hx Thyroid Surgery, Hx Tonsillectomy - Immunizations Immunizations up to date: Yes Hx Diphtheria, Pertussis, Tetanus Vaccination: No Review of Systems - Review of Systems Constitutional: No symptoms reported EENT: No symptoms reported Cardiovascular: No symptoms reported Respiratory: No symptoms reported Gastrointestinal: No symptoms reported Genitourinary: No symptoms reported Male Genitourinary: No symptoms reported Musculoskeletal: See HPI, Other - RLE pain Skin: No symptoms reported Hematologic/Lymphatic: No symptoms reported Neurological/Psychological: No symptoms reported -: Yes All other systems reviewed and negative Physical Exam - Vital signs Vitals: Temp Pulse Resp BP Pulse Ox 98.3 F 109 H 20 118/83 95 12/19/19 09:55 12/19/19 09:55 12/19/19 09:55 12/19/19 09:55 12/19/19 09:55 - Notes Notes: Physical Exam: General: Alert, appears chronically ill. HEENT: Normocephalic. Atraumatic. PERRL. Extraocular movements intact. Oropharynx clear. Neck: Supple. Non-tender. Respiratory: No respiratory distress. Clear and equal breath sounds bilaterally. Cardiovascular: Regular rate and rhythm. Abdominal: Normal Inspection. Non-tender. No distension. Normal Bowel Sounds. Back: No gross abnormalities. Extremities: Moves all four extremities. Upper extremities: Normal inspection. Normal ROM. Lower extremities: Normal inspection. No edema. Normal ROM. Neurological: Normal cognition. AAOx4. Normal speech. Psychological: Normal affect. Normal Mood. Skin: Warm. Dry. Normal color. Course - Re-evaluation Re-evalutation: 12/19/19 18:51 Patient reports that his pain is improved at this time. Patient received IV fluids for hydration and IV Zometa for hypercalcemia. Patient also received IV morphine 4 mg and IV Zofran 4 mg. Due to the IV morphine patient did become somnolent saturations dropped to the low 90s patient placed on 2 L nasal O2. 12/19/19 19:52 Patient reports he feels like going home at this time. Prefers to be at home. At this time I do not plan to place patient on antibiotics because I believe the infiltrate and we are seeing is all cancerous and lymphangitic spread. Patient has no symptoms of pneumonia at this time. - Vital Signs Vital signs: Temp Pulse Resp BP Pulse Ox 98.3 F 109 H 17 101/77 95 12/19/19 17:01 12/19/19 09:55 12/19/19 19:01 12/19/19 19:01 12/19/19 19:01 12/19/19 18:54 His vital signs shows a pulse ox of 91% and blood pressure 96/77 This is after treatment with IV morphine and Zofran. 12/19/19 19:52 Vital signs stable pulse ox 95% room air - Laboratory Result Diagrams: 12/19/19 12:21 12/19/19 12:21 Laboratory results interpreted by me: 12/19/19 12/19/19 12/19/19 12:21 12:21 14:05 WBC 10.6 H RBC 4.27 L Hgb 12.9 L Hct 37.6 L Lymph % (Auto) 6.2 L Absolute Neuts (auto) 8.6 H Seg Neutrophils % 80.6 H Sodium 135.7 L Chloride 93 L Carbon Dioxide 37 H Glucose 142 H Calcium 12.3 H* Alkaline Phosphatase 320 H Urine Urobilinogen 4.0 H Ur Leukocyte Esterase TRACE H 12/19/19 18:53 Patient has elevated alkaline phosphatase and a calcium of 12.3. Patient has known metastatic lung cancer to his bones. Case discussed with Dr. Gutierrez who is aware patient and his metastatic lung cancer to bones. Patient has had hypercalcemia on prior visits to the clinic. Patient is scheduled for chemotherapy to begin on December 23. With that said patient is going to be hydrated treat treated for pain and hypercalcemia and discharged quin e to follow-up with his already appointed time on December 23. - Diagnostic Test Radiology reviewed: Image reviewed, Reports reviewed Radiology results interpreted by me: 12/19/19 19:50 Chest x-ray shows infiltrate in the left lingula. Compared this chest x-ray to patient CT scan of his chest on 518 that shows left lung mass with spread into the lingula with infiltrate. An increasing infiltrate in the left lung base. This most likely is all cancer or lymphangitic spread. Patient does not have fever chills or coughing up any sputum. 12/19/19 19:51 Ultrasound of right lower leg shows no DVT. Pelvis plain film x-ray shows bilateral degenerative femoral acetabular arthritis in both joints. - EKG Interpretation by Me Additional EKG results interpreted by me: 12/19/19 18:51 Twelve-lead EKG shows normal sinus rhythm rate of 86 with a right bundle branch block. Right bundle branch block is not new. Discharge - Discharge Clinical Impression: Lung cancer, primary, with metastasis from lung to other site, Hypercalcemia, Bone pain Condition: Good Disposition: HOME, SELF-CARE Additional Instructions: You have lung cancer with metastatic disease to other organs. Including bone. He has hypercalcemia which also is consistent with your metastatic lung cancer to bone. You have been treated today for pain in your bones as well as the hypercalcemia. A chest x-ray was done which shows an infiltrate in the lingula of the left lung and this is not a new finding as it was noted on CT scan of chest done on December 09, 2019. Continue to keep your appointment with your December 23 following up regarding in preparation for chemotherapy. Increase fluids to help maintain a lower calcium level. Continue to take your pain medicines as needed. And as prescribed. Emergency department if you have any complications or problems. Referrals: KEMAL VILLELA MD [Primary Care Provider] - Follow up as needed ELA EMERSON MD [ACTIVE STAFF] - Follow up as needed I personally performed the services described in the documentation, reviewed and edited the documentation which was dictated to the scribe in my presence, and it accurately records my words and actions.
[2019-12-19 20:51] VITALS: BP 114/84
== END 2019-12-19 20:46 | disposition home or self-care (01) ==
LOC: ER 09:52
DX: R22.43 Localized swelling, mass and lump, lower limb, bilateral (principal); E83.52 Hypercalcemia; M89.8X9 Other specified disorders of bone, unspecified site; C34.90 Malignant neoplasm of unspecified part of unspecified bronchus or lung; C79.9 Secondary malignant neoplasm of unspecified site; I10 Essential (primary) hypertension; J44.9 Chronic obstructive pulmonary disease, unspecified
CPT/HCPCS: 93005; 99284; 96361; 96374; 96375; 36415; 83690; 85025; 80053; 81001; 93971; 71045; 73502; 93010; J2270; J2405; J7040; J3489

== ENCOUNTER 2019-12-25 05:40 | Day surgery (SDC) | payer MEDICARE ==
[~2019-12-25 05:40] MED LIST: ACETAMINOPHEN 325 MG TABLET PO PRN; CEFAZOLIN 1 GM/D5W RTU 1 GM/50 ML RTUPB IV PRN; LACTATED RINGERS 1000 ML IV PRN; LIDOCAINE 0.5% INJ-PF (5 MG/ML) 50 ML SDV SUBCUT PRN
[2019-12-25] MEDS ORDERED: CEFAZOLIN 1 GM/D5W RTU 1 GM/50 ML RTUPB IV ONE (06:03)
[2019-12-25 06:44] LABS: ANION GAP 7 (5-19); BLOOD UREA NITROGEN 19 mg/dL (7-20); CALCIUM 8.9 mg/dL (8.4-10.2); CARBON DIOXIDE 31 mmol/L (22-30); CHLORIDE 97 mmol/L (98-107); GLUCOSE 121 mg/dL (75-110); POTASSIUM 4.2 mmol/L (3.6-5.0)
[2019-12-25] MEDS ORDERED: MIDAZOLAM 2 MG/2 ML INJ ONE (06:48)
[2019-12-25] MEDS ORDERED: FENTANYL CITRATE INJ/PF 100 MCG/2 ML AMPUL ONE (06:48)
[2019-12-25] MEDS ORDERED: PROPOFOL INJ 200 MG/20 ML VIAL IV ONE (06:48)
[2019-12-25] MEDS ORDERED: MORPHINE SULFATE 10 MG/ML INJ ONE (07:04)
[2019-12-25] MEDS ORDERED: FENTANYL CITRATE INJ/PF 100 MCG/2 ML AMPUL IV PRN ×3 (07:07)
[2019-12-25] MEDS ORDERED: MORPHINE SULFATE 10 MG/ML INJ IV PRN (07:07)
[2019-12-25] MEDS ORDERED: MEPERIDINE HCL/PF INJ 25 MG/1 ML DISP.SYRIN IV PRN (07:07)
[2019-12-25] MEDS ORDERED: ONDANSETRON HCL INJ/PF 4 MG/2 ML SDV IV PRN (07:07)
[2019-12-25] MEDS ORDERED: DIPHENHYDRAMINE HCL 50 MG/ML VIAL IV PRN (07:07)
[2019-12-25] MEDS ORDERED: LIDOCAINE 1%/EPINEPHRINE INJ 20 ML VIAL ONE (07:15)
--- NOTE | 2019-12-25 08:16 | Discharge Summary ---
Discharge Summary (SDC) - Discharge Final Diagnosis: Metastatic lung carcinoma Date of Surgery: 12/25/19 Discharge Date: 12/25/19 Condition: Good Treatment or Instructions: May use port; may shower in 48 hours; allow Steri-Strips to fall off. Return to [facility] to see SOHAN Calabrese for postop visit Referrals: KEMAL VILLELA MD [Primary Care Provider] - Discharge Diet: As Tolerated Discharge Activity: Activity As Tolerated Home Care Assistance: None Needed Report the Following to Your Physician Immediately: Shortness of Breath, Increase in Pain, Fever over 101 Degrees
--- NOTE | 2019-12-25 08:20 | Operative Report ---
Operative Report DATE OF SURGERY: 12/25/19 PREOPERATIVE DIAGNOSIS: Metastatic lung carcinoma POSTOPERATIVE DIAGNOSIS: Same OPERATION: 1. Ultrasound directed access to a right internal jugular vein. 2. Placement of a single-chamber right subclavian Knbpex-x-Xbii catheter. 3. Interpretation of intraoperative fluoroscopy ANESTHESIA: LMAC TISSUE REMOVED OR ALTERED: None COMPLICATIONS: None INTRAOPERATIVE FINDINGS: See below PROCEDURE: Patient was taken preop holding area was placed supine position on the operating table. Monitoring devices were attached. Appropriate level of LMAC anesthesia was induced. Both sides of the neck and chest wall were prepped and draped in sterile fashion. We focused on the right neck for catheter insertion Surgical plan surgical timeout were conducted. The right neck was scanned with a variable frequency linear transducer. Findings were significant for a compressible, suitably dilated internal jugular vein felt to be appropriate for cannulation. The skin was anesthetized with 1% plain lidocaine. Using the variable frequency linear transducer. The right internal jugular vein was cannulated with the micro needle and microwire. Suitable site for placement of the port was chosen in the right subclavian position. Skin was anesthetized 1% plain lidocaine. A 3 cm incision was made with a 15 blade, port pocket developed large enough to accommodate a single- chamber port. The catheter was trimmed to appropriate length, tunnel between 2 incisions, attached to the port with the plastic ring. The port was tucked into the right subclavian pocket. Under fluoroscopic guidance, the microwire was switched over to a conventional 0.030 guidewire using the micro-introducer sheath. We then threaded a 8 Lithuanian dilator and introducer sheath over the wire, dilator wire removed, and the free end of the catheter threaded into the right internal jugular vein. The catheter was advanced so the tip was in the superior vena cava right atrial junction. No evidence of kinking of the catheter. The catheter was aspirated and flushed with heparinized saline. Incisions were closed with a 3-0 Vicryl suture, benzoin and Steri-Strips. Patient tolerated the procedure well, taken to recovery room in stable condition.
--- NOTE | 2019-12-25 08:58 | RADIOLOGY REPORT (SQ) ---
EXAM DESCRIPTION: FLUORO/CV PLACEMENT IMAGES COMPLETED DATE/TIME: 12/25/2019 8:42 am REASON FOR STUDY: PORTACATH RIGHT SIDE ASSISTED WITH FLUORO IN OR R91.8 OTHER NONSPECIFIC ABNORMAL FINDING OF LUNG FIELD COMPARISON: 12/19/2019 FLUOROSCOPY TIME: 0.2 minutes 3 images saved to PACS. TECHNIQUE: Intra-operative images acquired during surgical procedure to evaluate progress. NUMBER OF IMAGES: 3 LIMITATIONS: None. FINDINGS: Intraoperative fluoroscopic images demonstrate evidence of right internal jugular based ch est port placement with catheter tip at cavoatrial junction. Please see operative report for detaile d description. IMPRESSION: IMAGE(S) OBTAINED DURING PROCEDURE. COMMENT: Quality ID [id number]: Final reports for procedures using fluoroscopy that document radiation exp osure indices, or exposure time and number of fluorographic images (if radiation exposure indices are not available) Please consult full operative report of the attending physician for description of the procedure. TECHNICAL DOCUMENTATION: JOB ID: [id number] 2010 [employer]- All Rights Reserved Reading location - IP/workstation name: [email or web address]
[2019-12-25 10:03] VITALS: BP 106/79
== END 2019-12-25 09:55 | disposition home or self-care (01) ==
LOC: OROUT 05:40
PROVIDERS: ATTEND Surgery
DX: C34.91 Malignant neoplasm of unspecified part of right bronchus or lung (principal); C79.51 Secondary malignant neoplasm of bone; C78.7 Secondary malignant neoplasm of liver and intrahepatic bile duct; R06.02 Shortness of breath; Z87.891 Personal history of nicotine dependence; I10 Essential (primary) hypertension; E89.0 Postprocedural hypothyroidism; Z87.01 Personal history of pneumonia (recurrent); Z80.1 Family history of malignant neoplasm of trachea, bronchus and lung; Z80.3 Family history of malignant neoplasm of breast; Z79.891 Long term (current) use of opiate analgesic; Z79.899 Other long term (current) drug therapy; Z03.818 Encounter for observation for suspected exposure to other biological agents ruled out
CPT/HCPCS: 36415; 80048; 77001; 36561; C1752; C1788; U0003; J2250; J0690; J3010; J3490; J2270; J2704; J1642; C9803; 532; 87635

== ENCOUNTER 2019-12-30 15:44 | Inpatient (IN) | payer MEDICARE ==
[2019-12-30] MEDS ORDERED: FENTANYL CITRATE INJ/PF 100 MCG/2 ML AMPUL IV ONE (16:00)
[2019-12-30] MEDS ORDERED: NORMAL SALINE 1000 ML 1,000 ML IV ONE (16:00)
[2019-12-30] MEDS ORDERED: ONDANSETRON HCL INJ/PF 4 MG/2 ML SDV IV ONE (16:00)
--- NOTE | 2019-12-30 16:00 | ER Document Report ---
ED General - General Chief Complaint: Abdominal Pain Stated Complaint: ABDOMINAL PAIN Time Seen by Provider: 12/30/19 15:56 Notes: Patient presents with upper abdominal pain discomfort like he has had a bowel movement but cannot with urinary and bowel urgency but decreased output. 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 Nauseous not vomiting, and has decreased oral intake. TRAVEL OUTSIDE OF THE [place] IN LAST 30 DAYS: No - Related Data Allergies/Adverse Reactions: No Known Allergies Allergy (Verified 12/25/19 06:01) Past Medical History - General Information source: Patient - Social History Smoking Status: Former Smoker Frequency of alcohol use: None Family History: Reviewed & Not Pertinent - Past Medical History Cardiac Medical History: Reports: Hx Hypertension Denies: Hx Coronary Artery Disease, Hx Heart Attack Pulmonary Medical History: Reports: Hx Asthma, Hx COPD, Hx Pneumonia Denies: Hx Bronchitis Neurological Medical History: Denies: Hx Cerebrovascular Accident, Hx Seizures Endocrine Medical History: Reports: Hx Hyperthyroidism, Hx Hypothyroidism - afte r thyroidectomy. Denies: Hx Diabetes Mellitus Type 1, Hx Diabetes Mellitus Type 2 Renal/ Medical History: Denies: Hx Kidney Stones, Hx Peritoneal Dialysis Malignancy Medical History: Denies Hx Prostate Cancer, Denies Hx Testicular Cancer Musculoskeletal Medical History: Reports Hx Arthritis Past Surgical History: Reports: Hx Thyroid Surgery, Hx Tonsillectomy - Immunizations Immunizations up to date: Yes Hx Diphtheria, Pertussis, Tetanus Vaccination: No Review of Systems - Review of Systems Notes: REVIEW OF SYSTEMS GEN: Denies fever, chills, weight loss ENT: Denies sore throat, nasal discharge, ear pain EYES: Denies blurry vision, eye pain, discharge CV: Denies chest pain, palpitations, edema RESP: Denies cough, shortness of breath, wheezing GI: See HPI MSK: Denies joint pain/swelling, edema, SKIN: Denies rash, skin lesions LYMPH: Denies swollen glands/lymph nodes NEURO: Denies headache, focal weakness or numbness, dizziness PSYCH: Denies depression, suicidal or homicidal ideation PHYSICAL EXAMINATION General: No acute distress, well-nourished Head: Atraumatic, normocephalic ENT: Mouth normal, oropharynx moist, no exudates or tonsillar enlargement Eyes: Conjunctiva normal, pupils equal, lids normal Neck: No JVD, supple, no guarding CVS: Normal rate, regular rhythm, no murmurs Resp: No resp distress, equal and normal breath sounds bilaterally GI: Stented minimally tender tympanitic abdomen Ext: No deformities, no edema, normal range of motion in upper and lower ext Back: No CVA or midline TTP Skin: No rash, warm Lymphatic: No lymphadeopathy noted Neuro: Awake, alert. Face symmetric. GCS 15. Physical Exam - Vital signs Vitals: Temp Pulse Resp BP Pulse Ox 98.5 F 104 H 18 108/68 97 12/30/19 15:58 12/30/19 15:58 12/30/19 15:58 12/30/19 15:58 12/30/19 15:58 Course - Re-evaluation Re-evalutation: 12/30/19 18:52 Riki pain history of cancer on chemo Imaging shows colitis and stool impaction Can be chemorelated discussed with Stone who agrees Discussed with Saeed about the possibility of ischemic lightestthinks not but would observe anyway and recommends broad-spectrum antibiotics n.p.o. and admission to hospitalist Discussed with hospitalist for admission. Discussed with . Culture given antibiotics n.p.o. - Vital Signs Vital signs: Temp Pulse Resp BP Pulse Ox 98.4 F 104 H 18 108/68 97 12/30/19 17:06 12/30/19 15:58 12/30/19 15:58 12/30/19 15:58 12/30/19 15:58 - Laboratory Result Diagrams: 12/30/19 16:39 12/30/19 16:39 Laboratory results interpreted by me: 12/30/19 12/30/19 16:39 16:39 RBC 3.40 L Hgb 10.2 L Hct 30.5 L Seg Neuts % (Manual) 95 H Lymphocytes % (Manual) 4 L Monocytes % (Manual) 0 L Abs Lymphs (Manual) 0.3 L Abs Monocytes (Manual) 0.0 L Sodium 132.6 L Chloride 95 L Carbon Dioxide 33 H BUN 32 H Glucose 117 H Calcium 6.9 L* - Diagnostic Test Radiology reviewed: Image reviewed, Reports reviewed Discharge - Discharge Clinical Impression: Colitis Condition: Good Disposition: ADMITTED INPATIENT Admitting Provider: Kenny (Hospitalist) Unit Admitted: Medical Floor
[2019-12-30 16:59] LABS: HEMATOCRIT 30.5 % (37.9-51.0); HEMOGLOBIN 10.2 g/dL (13.5-17.0); MEAN CORPUSCULAR HEMOGLOBIN 29.9 pg (27.0-33.4); MEAN CORPUSCULAR HGB CONC 33.3 g/dL (32.0-36.0); MEAN CORPUSCULAR VOLUME 90 fl (80-97); PLATELET COUNT 152 10^3/uL (150-450); RED CELL DISTRIBUTION WIDTH 13.2 % (11.5-14.0); WHITE BLOOD COUNT 7.9 10^3/uL (4.0-10.5)
--- NOTE | 2019-12-30 17:04 | RADIOLOGY REPORT (SQ) ---
EXAM DESCRIPTION: CT ABD/PELVIS WITH IV ONLY IMAGES COMPLETED DATE/TIME: 12/30/2019 4:22 pm REASON FOR STUDY: SBO COMPARISON: PET from 11/26/[address] of the chest with contrast from 12/09/2019. TECHNIQUE: CT scan of the abdomen and pelvis performed using helical scanning technique with dynamic intravenous contrast injection. No oral contrast. Images reviewed with lung, soft tissue, and bone windows. Reconstructed coronal and sagittal MPR images reviewed. Delayed images for evaluation of the urinary system also acquired. All images stored on PACS. All CT scanners at this facility use dose modulation, iterative reconstruction, and/or weight based d osing when appropriate to reduce radiation dose to as low as reasonably achievable (ALARA). [facility]: Dose Right [facility]: CareDose [facility]: Dose Right [facility]: Teradose 4D [facility]: [employer] CONTRAST TYPE AND DOSE: 100 mL Omnipaque 350- low osmolar. RENAL FUNCTION: Creatinine 0.84 milligrams/deciliter. RADIATION DOSE: CT Rad equipment meets quality standard of care and radiation dose reduction techniq ues were employed. CTDIvol: 13.3 - 17.6 mGy. DLP: 1551 mGy-cm. LIMITATIONS: None. FINDINGS: LOWER CHEST: The amount of fluid in the left pleural space has increased from 12/09/2019. The pleural based nodules in the left hemithorax and the pre-pericardial adenopathy are unchanged. LIVER: The relative hypoattenuation of the hepatic parenchyma compared to the splenic parenchyma on t he portal venous phase is suggestive of hepatic steatosis. The metastatic lesion in segment 3 of the liver (image 19 of series 3) is unchanged in size and it measures 2.3 x 1.7 cm. SPLEEN: No splenomegaly or splenic mass. Stable accessory splenule medial to the spleen. PANCREAS: No acute abnormality of the pancreas. GALLBLADDER: The wall of gallbladder is thickened and partially calcified. The common bile duct is d ilated and it measures up to 9 mm in diameter. There is no dilatation of the intrahepatic bile ducts . ADRENAL GLANDS: No mass or asymmetry. RIGHT KIDNEY AND URETER: 5 x 4.7 cm cyst in the upper pole of the kidney and subcentimeter cortical b ased partial exophytic hypodense lesions in the interpolar portion and lower pole of the kidney that are considered too small to characterize. There is no hydronephrosis, nephrolithiasis, hydroureter o r ureterolithiasis. LEFT KIDNEY AND URETER: No solid mass, hydronephrosis, nephrolithiasis, hydroureter or ureterolithias is. AORTA AND VESSELS: No aneurysm of the abdominal aorta. RETROPERITONEUM: No retroperitoneal adenopathy, hemorrhage or mass. BOWEL AND PERITONEAL CAVITY: Long segment of bowel wall thickening involving the ascending colon and hepatic flexure. There is no associated obstruction. There are diverticula throughout the descendin g and sigmoid colon without diverticulitis. The rectum is distended with fecal material. There is n o pneumatosis, free intraperitoneal intraperitoneal fluid or mesenteric/omental inflammation. APPENDIX: Normal. PELVIS: The prostate gland is enlarged and heterogeneous and indents the trigone of the urinary bladd er. ABDOMINAL WALL: No mass or hernia. BONES: Lytic lesion in the right acetabulum that has increased in size and measures 2.4 x 2.2 cm. OTHER: No other finding. IMPRESSION: 1. Long segment of bowel wall thickening involving the ascending colon and hepatic flexu re. The finding is nonspecific and could represent an infectious, inflammatory or ischemic colitis. 2. Left pleural effusion that has increased in size from 12/09/2019. The pleural based nodules in the left hemithorax and the pre-pericardial adenopathy are unchanged. 3. Stable metastatic lesion in segment 3 of the liver. 4. Enlarging lytic lesion in the right acetabulum. TECHNICAL DOCUMENTATION: JOB ID: [id number] Quality ID # [id number]: Final reports with documentation of one or more dose reduction techniques (e.g., Au tomated exposure control, adjustment of the mA and/or kV according to patient size, use of iterative reconstruction technique) 2010 [employer]- All Rights Reserved Reading location - IP/workstation name: [email or web address]-
[2019-12-30 17:11] LABS: BLOOD UREA NITROGEN 32 mg/dL (7-20); GLUCOSE 117 mg/dL (75-110); POTASSIUM 3.9 mmol/L (3.6-5.0)
[2019-12-30 17:14] LABS: ABSOLUTE LYMPHOCYTES# (MANUAL) 0.3 10^3/uL (0.5-4.7); BASOPHILS % (MANUAL) 0 % (0-2); EOSINOPHILS % (MANUAL) 1 % (0-6); LYMPHOCYTES % (MANUAL) 4 % (13-45); MONOCYTES % (MANUAL) 0 % (3-13); RBC MORPHOLOGY COMMENT NORMO-CYTIC/CHROMIC; SEGMENTED NEUTROPHILS % (MAN) 95 % (42-78); TOTAL CELLS COUNTED 100
[2019-12-30 17:15] LABS: PLATELET COMMENT ADEQUATE
[2019-12-30 17:17] LABS: ANION GAP 5 (5-19); CARBON DIOXIDE 33 mmol/L (22-30); CHLORIDE 95 mmol/L (98-107)
[2019-12-30] MEDS ORDERED: CEFTRIAXONE 1 GM/D5W RTU 1 GM/50 ML RTUPB IV ONE (17:29)
[2019-12-30 17:30] LABS: CALCIUM 6.9 mg/dL (8.4-10.2)
[2019-12-30] MEDS ORDERED: CALCIUM GLUCONATE 1000 MG/10 ML INJ IV ONE (17:42)
[2019-12-30] MEDS ORDERED: METRONIDAZOLE 500 MG/NS RTU 500 MG/100 ML RTUPB IV SCH (18:00)
--- NOTE | 2019-12-30 18:17 | PDOC CONSULTATION ---
Consultation Consult Date: 12/30/19 Attending physician:: NICO LAZARO Provider Consulted: KURT READ Consult reason:: abdomnal pain History of Present Illness Admission Date/PCP: KEMAL VILLELA MD Patient complains of: abdominal pain, constipation, inabiltiy to pass urine History of Present Illness: JOHN SANTOS JR is a 69 year old male Patient presents with upper abdominal pain discomfort like he has had a bowel movement but cannot with urinary and bowel urgency but decreased output. 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 Nauseous not vomiting, and has decreased oral intake. recently had chemo rx of metastatic lung cancer to the liver. Past Medical History Cardiac Medical History: Reports: Hypertension Denies: Coronary Artery Disease, Myocardial Infarction Pulmonary Medical History: Reports: Asthma, Chronic Obstructive Pulmonary Disease (COPD), Pneumonia Denies: Bronchitis Neurological Medical History: Denies: Seizures Endocrine Medical History: Reports: Hyperthyroidism, Hypothyroidism - after thyroidectomy Denies: Diabetes Mellitus Type 1, Diabetes Mellitus Type 2 Musculoskeltal Medical History: Reports: Arthritis Hematology: Denies: Anemia Past Surgical History Past Surgical History: Reports: Tonsillectomy Social History Smoking Status: Unknown if Ever Smoked Family History Family History: Reviewed & Not Pertinent Parental Family History Reviewed: No Children Family History Reviewed: NA Sibling(s) Family History Reviewed.: NA Medication/Allergy Home Medications: Levothyroxine Sodium 150 mcg PO DAILY 08/26/17 Losartan Potassium [Cozaar 50 mg Tablet] 50 mg PO DAILY #30 tablet 08/26/17 Tamsulosin HCl [Flomax] 1 cap PO DAILY 03/07/19 Fentanyl [Duragesic 25 Mcg/Hr Transdermal Patch] 1 each TD Q3D 12/20/19 Morphine Sulfate [Ms Contin] 15 mg PO QID 12/20/19 Sennosides [Senokotxtra] 17.2 mg PO BID 12/20/19 Allergies/Adverse Reactions: No Known Allergies Allergy (Verified 12/25/19 06:01) Review of Systems Constitutional: PRESENT: anorexia, weakness Eyes: ABSENT: visual disturbances Ears: ABSENT: hearing changes Nose, Mouth, and Throat: ABSENT: as per HPI, headache(s), mouth pain, sore throat, vertigo, other Breasts: ABSENT: as per HPI, other Cardiovascular: ABSENT: as per HPI, chest pain, dyspnea on exertion, edema, orthropnea, palpitations, other Respiratory: PRESENT: cough Gastrointestinal: PRESENT: abdominal pain, bloating Genitourinary: PRESENT: difficulty urinating Musculoskeletal: PRESENT: muscle weakness Integumentary: ABSENT: as per HPI, diaphoresis, erythema, lesions, pruritus, rash, wounds, other Neurological: ABSENT: as per HPI, abnormal gait, abnormal movements, abnormal speech, confusion, convulsions, dizziness, focal weakness, frequent falls, lack of coordination, memory loss, numbness, paresthesias, restless legs, syncope, tingling, tremor(s), vertigo, weakness, other Psychiatric: ABSENT: as per HPI, anxiety, depression, hallucinations, homidical ideation, suicidal ideation, other Endocrine: ABSENT: as per HPI, cold intolerance, flushing, heat intolerance, menstrual abnormalities, polydipsia, polyphagia, polyuria, other Hematologic/Lymphatic: ABSENT: as per HPI, easy bleeding, easy bruising, l ymphadenopathy, other Allergic/Immunologic: ABSENT: as per HPI, seasonal rhinorrhea, other Physical Exam Vital Signs: Temp Pulse Resp BP Pulse Ox 98.4 F 104 H 18 108/68 97 12/30/19 17:06 12/30/19 15:58 12/30/19 15:58 12/30/19 15:58 12/30/19 15:58 General appearance: PRESENT: mild distress Head exam: PRESENT: normocephalic Eye exam: PRESENT: EOMI Ear exam: PRESENT: normal external ear exam Mouth exam: PRESENT: moist Teeth exam: PRESENT: poor dentation Neck exam: PRESENT: full ROM Respiratory exam: PRESENT: clear to auscultation gilma Cardiovascular exam: PRESENT: RRR Pulses: PRESENT: normal femoral pulses, normal dorsalis pedis pul Vascular exam: PRESENT: normal capillary refill Breast: PRESENT: Normal GI/Abdominal exam: PRESENT: diminished bowel sounds, distended, tenderness Rectal exam: PRESENT: deferred Extremities exam: PRESENT: full ROM Musculoskeletal exam: PRESENT: full ROM Neurological exam: PRESENT: alert, awake, oriented to person, oriented to place Psychiatric exam: PRESENT: appropriate affect Skin exam: PRESENT: dry Results Laboratory Results: 12/30/19 16:39 12/30/19 16:39 12/30/19 12/30/19 16:39 16:39 WBC 7.9 RBC 3.40 L Hgb 10.2 L Hct 30.5 L MCV 90 MCH 29.9 MCHC 33.3 RDW 13.2 Plt Count 152 Seg Neutrophils % Not Reportable Sodium 132.6 L Potassium 3.9 Chloride 95 L Carbon Dioxide 33 H Anion Gap 5 BUN 32 H Creatinine 0.78 Est GFR ( Amer) > 60 Glucose 117 H Calcium 6.9 L* Impressions: Abdomen/Pelvis CT 12/30/19 15:58 IMPRESSION: 1. Long segment of bowel wall thickening involving the ascending colon and hepatic flexure. The finding is nonspecific and could represent an infectious, inflammatory or ischemic colitis. 2. Left pleural effusion that has increased in size from 12/09/2019. The pleural based nodules in the left hemithorax and the pre-pericardial adenopathy are unchanged. 3. Stable metastatic lesion in segment 3 of the liver. 4. Enlarging lytic lesion in the right acetabulum. Assessment & Plan - Plan Summary Plan Summary: impression: Metastatic lung cancer with mets to liver recent dose of ketruda 5 days ago now abd distension and pain narcotic use and chronic constipation question of stranding along rt colon poss ischemia colitis vs tyflitis recommend foly cath for urinary retention gentel soap s;uds enemas for constipation broad spectrum abx. surgery will follow.
--- NOTE | 2019-12-30 18:36 | PDOC H&P ---
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 He said he is not had a bowel movement in 3 days and his belly was uncomfortable. He is not been running any fevers. He said he called EMS "because if you come up there by yourself they stick you in the lobby, and I figured this way they will have somebody go ahead and see me." He had a large stool burden in the colon on CT. I was told by the ER provider that he could not keep anything down p.o., but the patient told me that he has been able to take all of his medications and has not been throwing up. He said he has not had much of an appetite but he has not had any nausea or vomiting. Dr. Tipton saw him in the ER and recommended antibiotics and a soapsuds enema. He also had some nonspecific colon stranding on CT. His calcium level was low, otherwise his work-up was unremarkable. The patient is not a good historian, he does not know what medicines he is on and does not even know how much oxygen he is on at home. Past Medical History Cardiac Medical History: Reports: Hypertension Denies: Coronary Artery Disease, Myocardial Infarction Pulmonary Medical History: Reports: Asthma, Chronic Obstructive Pulmonary Disease (COPD), Pneumonia Denies: Bronchitis Neurological Medical History: Denies: Seizures Endocrine Medical History: Reports: Hyperthyroidism, Hypothyroidism - after thyroidectomy Denies: Diabetes Mellitus Type 1, Diabetes Mellitus Type 2 Musculoskeltal Medical History: Reports: Arthritis Hematology: Denies: Anemia Past Surgical History Past Surgical History: Reports: Tonsillectomy Social History Smoking Status: Unknown if Ever Smoked Family History Family History: Reviewed & Not Pertinent Parental Family History Reviewed: No - He does not know Children Family History Reviewed: Unknown Sibling(s) Family History Reviewed.: Unknown Medication/Allergy Home Medications: Levothyroxine Sodium 150 mcg PO DAILY 08/26/17 Losartan Potassium [Cozaar 50 mg Tablet] 50 mg PO DAILY #30 tablet 08/26/17 Tamsulosin HCl [Flomax] 1 cap PO DAILY 03/07/19 Fentanyl [Duragesic 25 Mcg/Hr Transdermal Patch] 1 each TD Q3D 12/20/19 Morphine Sulfate [Ms Contin] 15 mg PO QID 12/20/19 Sennosides [Senokotxtra] 17.2 mg PO BID 12/20/19 Allergies/Adverse Reactions: No Known Allergies Allergy (Verified 12/25/19 06:01) Review of Systems All systems: reviewed and no additional remarkable complaints except as stated - All systems were reviewed and were negative except as noted in the HPI Physical Exam Vital Signs: Temp Pulse Resp BP Pulse Ox 98.4 F 104 H 18 108/68 97 12/30/19 17:06 12/30/19 15:58 12/30/19 15:58 12/30/19 15:58 12/30/19 15:58 General appearance: PRESENT: no acute distress, cooperative, disheveled, obese Head exam: PRESENT: atraumatic, normocephalic Eye exam: PRESENT: EOMI, PERRLA. ABSENT: conjunctival injection, nystagmus, sc leral icterus Ear exam: PRESENT: normal external ear exam Mouth exam: PRESENT: moist, neck supple Teeth exam: PRESENT: poor dentation Throat exam: ABSENT: post pharyngeal erythema Neck exam: PRESENT: full ROM. ABSENT: carotid bruit, JVD, lymphadenopathy, meningismus, tenderness, thyromegaly Respiratory exam: PRESENT: clear to auscultation gilma, symmetrical, unlabored. ABSENT: accessory muscle use, chest wall tenderness, crackles, prolonged expir atory phas, rhonchi, tachypnea, wheezes Cardiovascular exam: PRESENT: RRR, +S1, +S2 Pulses: PRESENT: normal carotid pulses Vascular exam: PRESENT: normal capillary refill GI/Abdominal exam: PRESENT: normal bowel sounds, soft. ABSENT: distended, guarding, rebound, tenderness Extremities exam: ABSENT: pedal edema Musculoskeletal exam: PRESENT: ambulatory, normal inspection. ABSENT: deformity Neurological exam: PRESENT: alert, awake, oriented to person, oriented to place, oriented to time, oriented to situation, CN II-XII grossly intact. ABSENT: motor sensory deficit Psychiatric exam: PRESENT: appropriate affect, normal mood Skin exam: PRESENT: dry, warm Results Laboratory Results: 12/30/19 16:39 12/30/19 16:39 12/30/19 12/30/19 16:39 16:39 WBC 7.9 RBC 3.40 L Hgb 10.2 L Hct 30.5 L MCV 90 MCH 29.9 MCHC 33.3 RDW 13.2 Plt Count 152 Seg Neutrophils % Not Reportable Sodium 132.6 L Potassium 3.9 Chloride 95 L Carbon Dioxide 33 H Anion Gap 5 BUN 32 H Creatinine 0.78 Est GFR ( Amer) > 60 Glucose 117 H Calcium 6.9 L* Impressions: Abdomen/Pelvis CT 12/30/19 15:58 IMPRESSION: 1. Long segment of bowel wall thickening involving the ascending colon and hepatic flexure. The finding is nonspecific and could represent an infectious, inflammatory or ischemic colitis. 2. Left pleural effusion that has increased in size from 12/09/2019. The pleural based nodules in the left hemithorax and the pre-pericardial adenopathy are unchanged. 3. Stable metastatic lesion in segment 3 of the liver. 4. Enlarging lytic lesion in the right acetabulum. Assessment and Plan - Diagnosis (1) Constipation due to opioid therapy Is this a current diagnosis for this admission?: Yes Plan: We will give him a soapsuds enema as recommended by Dr. Tipton. Have also ordered some oral laxatives. (2) Squamous cell carcinoma of lung, stage IV Qualifiers: Laterality: right Qualified Code(s): C34.91 - Malignant neoplasm of unspecified part of right bronchus or lung Is this a current diagnosis for this admission?: Yes Plan: He is on Keytruda and follows with Dr. Marsh (3) Hypertension Qualifiers: Hypertension type: essential hypertension Qualified Code(s): I10 - Essential (primary) hypertension Is this a current diagnosis for this admission?: Yes Plan: We will continue his losartan (4) Hypothyroidism Qualifiers: Hypothyroidism type: other Qualified Code(s): E03.8 - Other specified hypothyroidism Is this a current diagnosis for this admission?: Yes Plan: We will continue his Synthroid (5) BPH (benign prostatic hyperplasia) Qualifiers: Lower urinary tract symptom presence: symptoms present Lower urinary tract symptom detail: urinary hesitancy Qualified Code(s): N40.1 - Benign prostatic hyperplasia with lower urinary tract symptoms; R39.11 - Hesitancy of micturition Is this a current diagnosis for this admission?: Yes Plan: We will continue his Flomax (6) Hypocalcemia Is this a current diagnosis for this admission?: Yes Plan: This was replaced in the ER with an IV supplement (7) Colitis Is this a current diagnosis for this admission?: Yes Plan: We will start him empirically on Cipro and Flagyl. Once we have relieved his constipation he should be able to go home. - Time Time Spent with patient: 35 or more minutes
[2019-12-30] MEDS ORDERED: FENTANYL 25 MCG/HR PATCH.TD72 TD SCH (22:00)
[2019-12-30] MEDS: ONDANSETRON HCL INJ/PF 4 MG/2 ML SDV IV PRN (22:30)
[2019-12-30] MEDS: POLYETHYLENE GLYCOL 3350 POWDER 17 GM/1 PACKET PO SCH (22:57)
[2019-12-30] MEDS: METRONIDAZOLE 500 MG TABLET PO SCH (22:57)
[2019-12-30] MEDS: CIPROFLOXACIN HCL 500 MG TABLET PO SCH (23:10)
[2019-12-30] MEDS: LACTULOSE SYRUP 20 GM/30 ML UDCUP PO SCH ×2 (23:10→23:17)
[2019-12-30] MEDS ORDERED: MORPHINE SULFATE IR 15 MG TABLET PO PRN (23:46)
[2019-12-31] MEDS: ONDANSETRON HCL INJ/PF 4 MG/2 ML SDV IV PRN ×2 (05:21→20:48)
[2019-12-31] MEDS: METRONIDAZOLE 500 MG TABLET PO SCH ×3 (05:26→22:29)
[2019-12-31] MEDS: LACTULOSE SYRUP 20 GM/30 ML UDCUP PO SCH ×4 (05:26→23:07)
[2019-12-31 05:56] LABS: HEMATOCRIT 29.8 % (37.9-51.0); HEMOGLOBIN 10.2 g/dL (13.5-17.0); MEAN CORPUSCULAR HEMOGLOBIN 29.9 pg (27.0-33.4); MEAN CORPUSCULAR HGB CONC 34.1 g/dL (32.0-36.0); MEAN CORPUSCULAR VOLUME 88 fl (80-97); PLATELET COUNT 129 10^3/uL (150-450); RED CELL DISTRIBUTION WIDTH 12.9 % (11.5-14.0); WHITE BLOOD COUNT 5.5 10^3/uL (4.0-10.5)
[2019-12-31] MEDS ORDERED: MORPHINE SULFATE IR 15 MG TABLET PO ONE (06:00)
[2019-12-31 06:20] LABS: BLOOD UREA NITROGEN 22 mg/dL (7-20); CALCIUM 7.1 mg/dL (8.4-10.2); GLUCOSE 117 mg/dL (75-110); POTASSIUM 3.7 mmol/L (3.6-5.0)
[2019-12-31 06:26] LABS: ANION GAP 6 (5-19); CARBON DIOXIDE 31 mmol/L (22-30); CHLORIDE 98 mmol/L (98-107)
[2019-12-31] MEDS ORDERED: LEVOTHYROXINE SODIUM 0.15 MG TABLET PO SCH ×2 (08:00→10:00)
[2019-12-31] MEDS ORDERED: (PENDING PHARMACY ID) (Sennosides [Senokot] 17.2 MG) PO SCH (10:00)
[2019-12-31] MEDS ORDERED: (PENDING PHARMACY ID) (Losartan Potassium [Losartan Potassium] 50 MG) PO SCH (10:00)
[2019-12-31] MEDS: POLYETHYLENE GLYCOL 3350 POWDER 17 GM/1 PACKET PO SCH (10:12)
[2019-12-31] MEDS: CIPROFLOXACIN HCL 500 MG TABLET PO SCH ×2 (10:13→22:29)
[2019-12-31] MEDS: SENNOSIDES/DOCUSATE 8.6-50 MG 1 EACH TABLET PO SCH (10:13)
[2019-12-31] MEDS: TAMSULOSIN HCL 0.4 MG CAP.SR.24H PO SCH (10:13)
[2019-12-31] MEDS: FENTANYL 25 MCG/HR PATCH.TD72 TD SCH (10:15)
[2019-12-31] MEDS: LOSARTAN POTASSIUM 50 MG TABLET PO SCH ×2 (11:32→22:29)
[2019-12-31] MEDS: KETOROLAC TROMETHAMINE INJ/PF 30 MG/1 ML SDV IV PRN (14:51)
[2019-12-31] MEDS ORDERED: KETOROLAC TROMETHAMINE INJ/PF 30 MG/1 ML SDV ONE (14:51)
--- NOTE | 2019-12-31 16:17 | PDOC PROGRESS REPORT ---
Subjective Progress Note for:: 12/31/19 Subjective:: No adverse events overnight. No new complaints. He has had a couple of small bowel movements but not a large decompressive bowel movement. Reason For Visit: CONSTIPATION, COLITIS, HYPOCALCEMIA Physical Exam Vital Signs: Temp Pulse Resp BP Pulse Ox 98.4 F 97 16 138/89 H 98 12/31/19 11:02 12/31/19 11:02 12/31/19 11:02 12/31/19 11:02 12/31/19 11:02 Intake & Output 12/30/19 12/31/19 01/01/20 06:59 06:59 06:59 Intake Total 1410 60 Output Total 300 Balance 1110 60 Weight 87.6 kg General appearance: PRESENT: no acute distress, cooperative, disheveled, obese Respiratory exam: PRESENT: clear to auscultation gilma, symmetrical, unlabored. ABSENT: accessory muscle use, chest wall tenderness, crackles, prolonged expiratory phas, rhonchi, tachypnea, wheezes Cardiovascular exam: PRESENT: RRR, +S1, +S2 Pulses: PRESENT: normal carotid pulses Vascular exam: PRESENT: normal capillary refill GI/Abdominal exam: PRESENT: normal bowel sounds, soft. ABSENT: distended, guarding, rebound, tenderness Extremities exam: ABSENT: pedal edema Musculoskeletal exam: PRESENT: ambulatory, normal inspection. ABSENT: deformity Neurological exam: PRESENT: alert, awake, oriented to person, oriented to place, oriented to time, oriented to situation Psychiatric exam: PRESENT: appropriate affect, normal mood Skin exam: PRESENT: dry, warm Results Laboratory Results: 12/31/19 05:16 12/31/19 05:16 12/30/19 12/30/19 12/31/19 16:39 16:39 05:16 WBC 7.9 5.5 RBC 3.40 L 3.40 L Hgb 10.2 L 10.2 L Hct 30.5 L 29.8 L MCV 90 88 MCH 29.9 29.9 MCHC 33.3 34.1 RDW 13.2 12.9 Plt Count 152 129 L Seg Neutrophils % Not Reportable Sodium 132.6 L Potassium 3.9 Chloride 95 L Carbon Dioxide 33 H Anion Gap 5 BUN 32 H Creatinine 0.78 Est GFR ( Amer) > 60 Glucose 117 H Calcium 6.9 L* 12/31/19 05:16 WBC RBC Hgb Hct MCV MCH MCHC RDW Plt Count Seg Neutrophils % Sodium 135.4 L Potassium 3.7 Chloride 98 Carbon Dioxide 31 H Anion Gap 6 BUN 22 H Creatinine 0.74 Est GFR ( Amer) > 60 Glucose 117 H Calcium 7.1 L Impressions: Abdomen/Pelvis CT 12/30/19 15:58 IMPRESSION: 1. Long segment of bowel wall thickening involving the ascending colon and hepatic flexure. The finding is nonspecific and could represent an infectious, inflammatory or ischemic colitis. 2. Left pleural effusion that has increased in size from 12/09/2019. The pleural based nodules in the left hemithorax and the pre-pericardial adenopathy are unchanged. 3. Stable metastatic lesion in segment 3 of the liver. 4. Enlarging lytic lesion in the right acetabulum. Assessment and Plan - Diagnosis (1) Constipation due to opioid therapy Is this a current diagnosis for this admission?: Yes Plan: He has had a little bit of stool output but not very much. He has had a couple small loose bowel movements as well. If he does not produce a bowel movement by this afternoon, we will likely give him a soapsuds enema. It was not given to him in the ER yesterday. (2) Squamous cell carcinoma of lung, stage IV Qualifiers: Laterality: right Qualified Code(s): C34.91 - Malignant neoplasm of unspecified part of right bronchus or lung Is this a current diagnosis for this admission?: Yes Plan: He is on Keytruda and follows with Dr. Marsh (3) Hypertension Qualifiers: Hypertension type: essential hypertension Qualified Code(s): I10 - Essential (primary) hypertension Is this a current diagnosis for this admission?: Yes Plan: We will continue his losartan (4) Hypothyroidism Qualifiers: Hypothyroidism type: other Qualified Code(s): E03.8 - Other specified hypothyroidism Is this a current diagnosis for this admission?: Yes Plan: We will continue his Synthroid (5) BPH (benign prostatic hyperplasia) Qualifiers: Lower urinary tract symptom presence: symptoms present Lower urinary tract symptom detail: urinary hesitancy Qualified Code(s): N40.1 - Benign prostatic hyperplasia with lower urinary tract symptoms; R39.11 - Hesitancy of micturition Is this a current diagnosis for this admission?: Yes Plan: We will continue his Flomax (6) Hypocalcemia Is this a current diagnosis for this admission?: Yes Plan: This was replaced in the ER with an IV supplement (7) Colitis Is this a current diagnosis for this admission?: Yes Plan: We will start him empirically on Cipro and Flagyl. Once we have relieved his constipation he should be able to go home. - Time Time Spent with patient: 25-34 minutes
[2019-12-31] MEDS ORDERED: POLYETHYLENE GLYCOL 3350 POWDER 17 GM/1 PACKET PO SCH (18:00)
[2019-12-31] MEDS ORDERED: MORPHINE SULFATE 10 MG/ML INJ IV ONE (21:00)
--- NOTE | 2019-12-31 21:49 | PDOC PROGRESS REPORT ---
Subjective Progress Note for:: 12/31/19 Subjective:: This is a 69 old male with complaints of abdominal pain. His abdominal pain appears to be improved today. He did have several bowel movements overnight and today. His family reports that they are still small and hard, although he is beginning to pass some water as well. His main complaint is chest pain. He is requesting morphine. Reason For Visit: CONSTIPATION, COLITIS, HYPOCALCEMIA Physical Exam Vital Signs: Temp Pulse Resp BP Pulse Ox 98.1 F 97 20 133/91 H 100 12/31/19 19:31 12/31/19 19:31 12/31/19 19:31 12/31/19 19:31 12/31/19 19:31 Intake & Output 12/30/19 12/31/19 01/01/20 06:59 06:59 06:59 Intake Total 1410 296 Output Total 300 Balance 1110 296 Weight 87.6 kg General appearance: PRESENT: no acute distress, cooperative Head exam: PRESENT: atraumatic, normocephalic Eye exam: PRESENT: EOMI, PERRLA. ABSENT: scleral icterus Mouth exam: PRESENT: moist, neck supple Neck exam: ABSENT: meningismus, tenderness, thyromegaly, tracheal deviation Respiratory exam: PRESENT: unlabored. ABSENT: tachypnea, wheezes Cardiovascular exam: ABSENT: tachycardia GI/Abdominal exam: PRESENT: distended - mild, soft, tenderness - mild right sided Rectal exam: PRESENT: deferred Extremities exam: ABSENT: clubbing Musculoskeletal exam: ABSENT: deformity Neurological exam: PRESENT: alert, awake, oriented to person, oriented to place, oriented to time, oriented to situation, CN II-XII grossly intact. ABSENT: motor sensory deficit Psychiatric exam: ABSENT: agitated, anxious, depressed Focused psych exam: ABSENT: delusional Skin exam: ABSENT: cyanosis, erythema, jaundice Results Laboratory Results: 12/31/19 05:16 12/31/19 05:16 12/31/19 12/31/19 05:16 05:16 WBC 5.5 RBC 3.40 L Hgb 10.2 L Hct 29.8 L MCV 88 MCH 29.9 MCHC 34.1 RDW 12.9 Plt Count 129 L Sodium 135.4 L Potassium 3.7 Chloride 98 Carbon Dioxide 31 H Anion Gap 6 BUN 22 H Creatinine 0.74 Est GFR ( Amer) > 60 Glucose 117 H Calcium 7.1 L Impressions: Abdomen/Pelvis CT 12/30/19 15:58 IMPRESSION: 1. Long segment of bowel wall thickening involving the ascending colon and hepatic flexure. The finding is nonspecific and could represent an infectious, inflammatory or ischemic colitis. 2. Left pleural effusion that has increased in size from 12/09/2019. The pleural based nodules in the left hemithorax and the pre-pericardial adenopathy are unchanged. 3. Stable metastatic lesion in segment 3 of the liver. 4. Enlarging lytic lesion in the right acetabulum. Assessment & Plan - Diagnosis (1) Right sided colitis Is this a current diagnosis for this admission?: Yes (2) Constipation due to opioid therapy Is this a current diagnosis for this admission?: Yes - Plan Summary Plan Summary: This is a 69-year-old male with lung cancer, mild colitis per CT scan, and opioid-induced constipation. The patient reports several bowel movements overnight and throughout the day. He reports that his abdomen is less tender than yesterday. On examination, he has no evidence of rebound tenderness, guarding, or other signs of peritonitis. Continue antibiotics. Continue cathartics. I have educated the patient and his family regarding the need for stool softeners and fiber supplementation at home while taking narcotics. No surgical intervention indicated at this time. Surgery will continue to follow closely with you.
[2019-12-31] MEDS ORDERED: PROMETHAZINE HCL INJ 25 MG/1 ML VIAL IV ONE (22:30)
[2020-01-01] MEDS: KETOROLAC TROMETHAMINE INJ/PF 30 MG/1 ML SDV IV PRN ×4 (03:19→23:28)
[2020-01-01] MEDS: ONDANSETRON HCL INJ/PF 4 MG/2 ML SDV IV PRN ×3 (03:22→21:44)
[2020-01-01] MEDS: LACTULOSE SYRUP 20 GM/30 ML UDCUP PO SCH ×3 (05:33→17:20)
[2020-01-01] MEDS: LEVOTHYROXINE SODIUM 0.15 MG TABLET PO SCH (05:34)
[2020-01-01] MEDS: METRONIDAZOLE 500 MG TABLET PO SCH ×3 (05:34→21:07)
--- NOTE | 2020-01-01 09:21 | RADIOLOGY REPORT (SQ) ---
EXAM DESCRIPTION: KUB/ABDOMEN (SINGLE VIEW) IMAGES COMPLETED DATE/TIME: 01/01/2020 8:28 am REASON FOR STUDY: abdominal pain COMPARISON: CT of the abdomen and pelvis with contrast from 12/30/2019 NUMBER OF VIEWS: One view. TECHNIQUE: Supine radiographic image of the abdomen acquired. LIMITATIONS: None. FINDINGS: BOWEL GAS PATTERN: No dilated loops of bowel or differential air-fluid levels. CALCIFICATIONS: None. SOFT TISSUES: No abnormality. HARDWARE: None in the abdomen. BONES: Levoconvex curvature and degenerative spondylosis of the lumbar spine. Osteoarthrosis of the femoroacetabular joints. OTHER: Dense opacity in the inferior aspect of the left hemithorax that obscures the contour of the h emidiaphragm and blunts the costophrenic sulcus. IMPRESSION: Nonobstructive bowel gas pattern. TECHNICAL DOCUMENTATION: JOB ID: [id number] 2010 [employer]- All Rights Reserved Reading location - IP/workstation name: [email or web address]
[2020-01-01] MEDS: TAMSULOSIN HCL 0.4 MG CAP.SR.24H PO SCH (09:59)
[2020-01-01] MEDS: LOSARTAN POTASSIUM 50 MG TABLET PO SCH ×2 (09:59→21:07)
[2020-01-01] MEDS: SENNOSIDES/DOCUSATE 8.6-50 MG 1 EACH TABLET PO SCH (09:59)
[2020-01-01] MEDS: CIPROFLOXACIN HCL 500 MG TABLET PO SCH ×2 (10:00→21:08)
--- NOTE | 2020-01-01 11:23 | PDOC PROGRESS REPORT ---
Subjective Progress Note for:: 01/01/20 Subjective:: This is a 69 old male with complaints of abdominal pain. His abdominal pain has improved, and he is resting comfortably. He had several more bowel movements overnight. His family reports that they are loose and runny. He reports chest pain. He denies SOB, nausea, vomiting, dizziness, blurry vision. He reports that his abdominal pain is minimal. Reason For Visit: CONSTIPATION, COLITIS, HYPOCALCEMIA Physical Exam Vital Signs: Temp Pulse Resp BP Pulse Ox 97.9 F 92 19 139/89 H 98 01/01/20 07:57 01/01/20 07:57 01/01/20 07:57 01/01/20 07:57 01/01/20 07:57 Intake & Output 12/31/19 01/01/20 01/02/20 06:59 06:59 06:59 Intake Total 1410 536 Output Total 300 Balance 1110 536 Weight 87.6 kg 87.5 kg Exam: General appearance: PRESENT: no acute distress, cooperative Head exam: PRESENT: atraumatic, normocephalic Eye exam: PRESENT: EOMI, PERRLA. ABSENT: scleral icterus Mouth exam: PRESENT: moist, neck supple Neck exam: ABSENT: meningismus, tenderness, thyromegaly, tracheal deviation Respiratory exam: PRESENT: unlabored. ABSENT: tachypnea, wheezes Cardiovascular exam: ABSENT: tachycardia GI/Abdominal exam: PRESENT: soft, tenderness - mild right sided. ABSENT: distended Rectal exam: PRESENT: deferred Extremities exam: ABSENT: clubbing Musculoskeletal exam: ABSENT: deformity Neurological exam: PRESENT: alert, awake, oriented to person, oriented to place, oriented to time, oriented to situation, CN II-XII grossly intact. ABSENT: motor sensory deficit Psychiatric exam: ABSENT: agitated, anxious, depressed Focused psych exam: ABSENT: delusional Skin exam: ABSENT: cyanosis, erythema, jaundice Results Laboratory Results: 12/31/19 05:16 12/31/19 05:16 Impressions: Abdomen/Pelvis CT 12/30/19 15:58 IMPRESSION: 1. Long segment of bowel wall thickening involving the ascending colon and hepatic flexure. The finding is nonspecific and could represent an infectious, inflammatory or ischemic colitis. 2. Left pleural effusion that has increased in size from 12/09/2019. The pleural based nodules in the left hemithorax and the pre-pericardial adenopathy are unchanged. 3. Stable metastatic lesion in segment 3 of the liver. 4. Enlarging lytic lesion in the right acetabulum. KUB X-Ray 01/01/20 06:00 IMPRESSION: Nonobstructive bowel gas pattern. Assessment & Plan - Diagnosis (1) Right sided colitis Is this a current diagnosis for this admission?: Yes (2) Constipation due to opioid therapy Is this a current diagnosis for this admission?: Yes - Plan Summary Plan Summary: This is a 69-year-old male with lung cancer, mild colitis per CT scan, and op ioid-induced constipation. The patient reports several loose bowel movements overnight. He reports that his abdomen is less tender than yesterday. On examination, he has no evidence of rebound tenderness, guarding, or other signs of peritonitis. Continue antibiotics. His x-ray is much improved. He has had multiple loose, watery BM's. Decrease cathartics. I have educated the patient and his family regarding the need for stool softeners and fiber supplementation at home while taking narcotics. No surgical intervention indicated at this time. Surgery will sign off. Please renotify with any questions or concerns.
--- NOTE | 2020-01-01 17:56 | PDOC PROGRESS REPORT ---
Subjective Progress Note for:: 01/01/20 Subjective:: No adverse events overnight. He did not have much improvement with the enema last night. He continues to have some loose bowel movements but his says that there are some solid components to it. He has not been able to produce a single large bowel movement. He has been afebrile. When he sits up for too long he gets discomfort in his chest related to his lung mass. Reason For Visit: CONSTIPATION, COLITIS, HYPOCALCEMIA Physical Exam Vital Signs: Temp Pulse Resp BP Pulse Ox 98.4 F 93 18 138/84 H 99 01/01/20 15:22 01/01/20 15:22 01/01/20 15:22 01/01/20 15:22 01/01/20 15:22 Intake & Output 12/31/19 01/01/20 01/02/20 06:59 06:59 06:59 Intake Total 1410 536 Output Total 300 Balance 1110 536 Weight 87.6 kg 87.5 kg 87.5 kg General appearance: PRESENT: no acute distress, cooperative, disheveled, obese Respiratory exam: PRESENT: clear to auscultation gilma, symmetrical, unlabored. ABSENT: accessory muscle use, chest wall tenderness, crackles, prolonged expiratory phas, rhonchi, tachypnea, wheezes Cardiovascular exam: PRESENT: RRR, +S1, +S2 Pulses: PRESENT: normal carotid pulses Vascular exam: PRESENT: normal capillary refill GI/Abdominal exam: PRESENT: normal bowel sounds, soft. ABSENT: distended, guarding, rebound, tenderness Extremities exam: ABSENT: pedal edema Musculoskeletal exam: PRESENT: ambulatory, normal inspection. ABSENT: deformity Neurological exam: PRESENT: alert, awake, oriented to person, oriented to place, oriented to time, oriented to situation Psychiatric exam: PRESENT: appropriate affect, normal mood Skin exam: PRESENT: dry, warm Results Laboratory Results: 12/31/19 05:16 12/31/19 05:16 Impressions: Abdomen/Pelvis CT 12/30/19 15:58 IMPRESSION: 1. Long segment of bowel wall thickening involving the ascending colon and hepatic flexure. The finding is nonspecific and could represent an infectious, inflammatory or ischemic colitis. 2. Left pleural effusion that has increased in size from 12/09/2019. The pleural based nodules in the left hemithorax and the pre-pericardial adenopathy are unchanged. 3. Stable metastatic lesion in segment 3 of the liver. 4. Enlarging lytic lesion in the right acetabulum. KUB X-Ray 01/01/20 06:00 IMPRESSION: Nonobstructive bowel gas pattern. Assessment and Plan - Diagnosis (1) Constipation due to opioid therapy Is this a current diagnosis for this admission?: Yes Plan: KUB showed a normal bowel gas pattern. He is showing some signs of it breaking up because he is at least having some solid component to his stools now. We will continue with his current therapy. He does not want to try another enema. (2) Squamous cell carcinoma of lung, stage IV Qualifiers: Laterality: right Qualified Code(s): C34.91 - Malignant neoplasm of unspecified part of right bronchus or lung Is this a current diagnosis for this admission?: Yes Plan: He is on Keytruda and follows with Dr. Marsh (3) Hypertension Qualifiers: Hypertension type: essential hypertension Qualified Code(s): I10 - Essential (primary) hypertension Is this a current diagnosis for this admission?: Yes Plan: We will continue his losartan (4) Hypothyroidism Qualifiers: Hypothyroidism type: other Qualified Code(s): E03.8 - Other specified hypothyroidism Is this a current diagnosis for this admission?: Yes Plan: We will continue his Synthroid (5) BPH (benign prostatic hyperplasia) Qualifiers: Lower urinary tract symptom presence: symptoms present Lower urinary tract symptom detail: urinary hesitancy Qualified Code(s): N40.1 - Benign prostatic hyperplasia with lower urinary tract symptoms; R39.11 - Hesitancy of micturition Is this a current diagnosis for this admission?: Yes Plan: We will continue his Flomax (6) Hypocalcemia Is this a current diagnosis for this admission?: Yes Plan: This was replaced in the ER with an IV supplement. We will continue to replace as needed. (7) Colitis Is this a current diagnosis for this admission?: Yes Plan: We will start him empirically on Cipro and Flagyl. Once we have relieved his constipation he should be able to go home.
[2020-01-01] MEDS: CALCIUM GLUC IN NACL, ISO-OSM 1 GM/50 ML RTUPB IV SCH ×2 (19:26→21:08)
[2020-01-01] MEDS: LORAZEPAM 0.5 MG TABLET PO PRN (21:08)
[2020-01-02] MEDS: LACTULOSE SYRUP 20 GM/30 ML UDCUP PO SCH ×4 (00:23→19:20)
[2020-01-02] MEDS: KETOROLAC TROMETHAMINE INJ/PF 30 MG/1 ML SDV IV PRN ×2 (05:29→21:18)
[2020-01-02] MEDS: METRONIDAZOLE 500 MG TABLET PO SCH ×3 (05:29→21:18)
[2020-01-02] MEDS: LEVOTHYROXINE SODIUM 0.15 MG TABLET PO SCH (05:29)
[2020-01-02] MEDS: LORAZEPAM 0.5 MG TABLET PO PRN (05:29)
[2020-01-02] MEDS: LOSARTAN POTASSIUM 50 MG TABLET PO SCH ×2 (10:15→21:17)
[2020-01-02] MEDS: SENNOSIDES/DOCUSATE 8.6-50 MG 1 EACH TABLET PO SCH (10:15)
[2020-01-02] MEDS: TAMSULOSIN HCL 0.4 MG CAP.SR.24H PO SCH (10:15)
[2020-01-02] MEDS: CIPROFLOXACIN HCL 500 MG TABLET PO SCH ×2 (10:15→21:17)
--- NOTE | 2020-01-02 15:12 | PDOC PROGRESS REPORT ---
Subjective Progress Note for:: 01/02/20 Subjective:: No adverse events overnight. No new complaints. He has been afebrile. His appetite is picked up and he ate all of his breakfast. He is having mostly loose bowel movements with some solid material. Reason For Visit: CONSTIPATION, COLITIS, HYPOCALCEMIA Physical Exam Vital Signs: Temp Pulse Resp BP Pulse Ox 98.5 F 96 17 132/86 H 98 01/02/20 11:13 01/02/20 11:13 01/02/20 11:13 01/02/20 11:13 01/02/20 11:13 Intake & Output 01/01/20 01/02/20 01/03/20 06:59 06:59 06:59 Intake Total 536 528 357 Balance 536 528 357 Weight 87.5 kg 82.7 kg General appearance: PRESENT: no acute distress, cooperative, disheveled, obese Respiratory exam: PRESENT: clear to auscultation gilma, symmetrical, unlabored. ABSENT: accessory muscle use, chest wall tenderness, crackles, prolonged expiratory phas, rhonchi, tachypnea, wheezes Cardiovascular exam: PRESENT: RRR, +S1, +S2 Pulses: PRESENT: normal carotid pulses Vascular exam: PRESENT: normal capillary refill GI/Abdominal exam: PRESENT: normal bowel sounds, soft. ABSENT: distended, guarding, rebound, tenderness Extremities exam: ABSENT: pedal edema Musculoskeletal exam: PRESENT: ambulatory, normal inspection. ABSENT: deformity Neurological exam: PRESENT: alert, awake, oriented to person, oriented to place, oriented to time, oriented to situation Psychiatric exam: PRESENT: appropriate affect, normal mood Skin exam: PRESENT: dry, warm Results Laboratory Results: 12/31/19 05:16 12/31/19 05:16 Impressions: Abdomen/Pelvis CT 12/30/19 15:58 IMPRESSION: 1. Long segment of bowel wall thickening involving the ascending colon and hepatic flexure. The finding is nonspecific and could represent an infectious, inflammatory or ischemic colitis. 2. Left pleural effusion that has increased in size from 12/09/2019. The pleural based nodules in the left hemithorax and the pre-pericardial adenopathy are unchanged. 3. Stable metastatic lesion in segment 3 of the liver. 4. Enlarging lytic lesion in the right acetabulum. KUB X-Ray 01/01/20 06:00 IMPRESSION: Nonobstructive bowel gas pattern. Assessment and Plan - Diagnosis (1) Constipation due to opioid therapy Is this a current diagnosis for this admission?: Yes Plan: KUB showed a normal bowel gas pattern. He is showing some signs of it breaking up because he is at least having some solid component to his stools now. We will continue with his current therapy. He does not want to try another enema. It may take some time for this to resolve completely. Since he is having bowel movements and he is eating and drinking well, he may be able to go home tomorrow. (2) Squamous cell carcinoma of lung, stage IV Qualifiers: Laterality: right Qualified Code(s): C34.91 - Malignant neoplasm of unspecified part of right bronchus or lung Is this a current diagnosis for this admission?: Yes Plan: He is on Keytruda and follows with Dr. Marsh (3) Hypertension Qualifiers: Hypertension type: essential hypertension Qualified Code(s): I10 - Essential (primary) hypertension Is this a current diagnosis for this admission?: Yes Plan: We will continue his losartan (4) Hypothyroidism Qualifiers: Hypothyroidism type: other Qualified Code(s): E03.8 - Other specified hypothyroidism Is this a current diagnosis for this admission?: Yes Plan: We will continue his Synthroid (5) BPH (benign prostatic hyperplasia) Qualifiers: Lower urinary tract symptom presence: symptoms present Lower urinary tract symptom detail: urinary hesitancy Qualified Code(s): N40.1 - Benign prostatic hyperplasia with lower urinary tract symptoms; R39.11 - Hesitancy of micturition Is this a current diagnosis for this admission?: Yes Plan: We will continue his Flomax (6) Hypocalcemia Is this a current diagnosis for this admission?: Yes Plan: This was replaced in the ER with an IV supplement. We will continue to replace as needed. (7) Colitis Is this a current diagnosis for this admission?: Yes Plan: Continue antibiotics and bowel regimen. - Time Time Spent with patient: 15-24 minutes
[2020-01-02] MEDS: ONDANSETRON HCL INJ/PF 4 MG/2 ML SDV IV PRN (21:18)
[2020-01-03] MEDS: ONDANSETRON HCL INJ/PF 4 MG/2 ML SDV IV PRN ×3 (01:37→17:02)
[2020-01-03] MEDS: LORAZEPAM 0.5 MG TABLET PO PRN ×3 (01:37→23:08)
[2020-01-03] MEDS: KETOROLAC TROMETHAMINE INJ/PF 30 MG/1 ML SDV IV PRN ×2 (06:00→21:24)
[2020-01-03] MEDS: LEVOTHYROXINE SODIUM 0.15 MG TABLET PO SCH (06:00)
[2020-01-03] MEDS: METRONIDAZOLE 500 MG TABLET PO SCH ×3 (06:00→21:31)
[2020-01-03] MEDS: TAMSULOSIN HCL 0.4 MG CAP.SR.24H PO SCH (09:49)
[2020-01-03] MEDS: LOSARTAN POTASSIUM 50 MG TABLET PO SCH ×2 (09:49→21:26)
[2020-01-03] MEDS: CIPROFLOXACIN HCL 500 MG TABLET PO SCH ×2 (09:49→21:26)
[2020-01-03] MEDS: SENNOSIDES/DOCUSATE 8.6-50 MG 1 EACH TABLET PO SCH (09:50)
[2020-01-03] MEDS: FENTANYL 25 MCG/HR PATCH.TD72 TD SCH (09:52)
[2020-01-03 10:14] LABS: HEMATOCRIT 29.8 % (37.9-51.0); MEAN CORPUSCULAR HEMOGLOBIN 29.6 pg (27.0-33.4); MEAN CORPUSCULAR HGB CONC 33.6 g/dL (32.0-36.0); MEAN CORPUSCULAR VOLUME 88 fl (80-97); PLATELET COUNT 110 10^3/uL (150-450); RED BLOOD COUNT 3.38 10^6/uL (4.35-5.55); RED CELL DISTRIBUTION WIDTH 13.1 % (11.5-14.0)
[2020-01-03 10:39] LABS: ANION GAP 5 (5-19); BLOOD UREA NITROGEN 18 mg/dL (7-20); CARBON DIOXIDE 30 mmol/L (22-30); CHLORIDE 98 mmol/L (98-107); GLUCOSE 147 mg/dL (75-110); POTASSIUM 3.1 mmol/L (3.6-5.0)
[2020-01-03 10:45] LABS: WHITE BLOOD COUNT 1.9 10^3/uL (4.0-10.5)
--- NOTE | 2020-01-03 16:28 | PDOC PROGRESS REPORT ---
Subjective Progress Note for:: 01/03/20 Subjective:: No adverse events overnight. He looks more comfortable today. His appetite has improved. He had more solid consistency to his bowel movement earlier. We had to stop his lactulose yesterday because he was throwing up about an hour after he would take it. Reason For Visit: CONSTIPATION, COLITIS, HYPOCALCEMIA Physical Exam Vital Signs: Temp Pulse Resp BP Pulse Ox 98.8 F 104 H 18 149/84 H 96 01/03/20 15:34 01/03/20 15:34 01/03/20 15:34 01/03/20 15:34 01/03/20 15:34 Intake & Output 01/02/20 01/03/20 01/04/20 06:59 06:59 06:59 Intake Total 528 1151 Balance 528 1151 Weight 82.7 kg 82.5 kg General appearance: PRESENT: no acute distress, cooperative, disheveled, obese Respiratory exam: PRESENT: clear to auscultation gilma, symmetrical, unlabored. ABSENT: accessory muscle use, chest wall tenderness, crackles, prolonged expiratory phas, rhonchi, tachypnea, wheezes Cardiovascular exam: PRESENT: RRR, +S1, +S2 Pulses: PRESENT: normal carotid pulses Vascular exam: PRESENT: normal capillary refill GI/Abdominal exam: PRESENT: normal bowel sounds, soft. ABSENT: distended, guarding, rebound, tenderness Extremities exam: ABSENT: pedal edema Musculoskeletal exam: PRESENT: ambulatory, normal inspection. ABSENT: deformity Neurological exam: PRESENT: alert, awake, oriented to person, oriented to place, oriented to time, oriented to situation Psychiatric exam: PRESENT: appropriate affect, normal mood Skin exam: PRESENT: dry, warm Results Laboratory Results: 01/03/20 09:42 01/03/20 09:42 01/03/20 01/03/20 09:42 09:42 WBC 1.9 L RBC 3.38 L Hgb 10.0 L Hct 29.8 L MCV 88 MCH 29.6 MCHC 33.6 RDW 13.1 Plt Count 110 L Sodium 133.3 L Potassium 3.1 L Chloride 98 Carbon Dioxide 30 Anion Gap 5 BUN 18 Creatinine 0.65 Est GFR ( Amer) > 60 Glucose 147 H Calcium 8.0 L Impressions: Abdomen/Pelvis CT 12/30/19 15:58 IMPRESSION: 1. Long segment of bowel wall thickening involving the ascending colon and hepatic flexure. The finding is nonspecific and could represent an infectious, inflammatory or ischemic colitis. 2. Left pleural effusion that has increased in size from 12/09/2019. The pleural based nodules in the left hemithorax and the pre-pericardial adenopathy are unchanged. 3. Stable metastatic lesion in segment 3 of the liver. 4. Enlarging lytic lesion in the right acetabulum. KUB X-Ray 01/01/20 06:00 IMPRESSION: Nonobstructive bowel gas pattern. Assessment and Plan - Diagnosis (1) Constipation due to opioid therapy Is this a current diagnosis for this admission?: Yes Plan: We had to stop his lactulose as previously noted, but his stool is starting to have more substance to it. He will need to be on a fairly aggressive bowel regimen at home. (2) Squamous cell carcinoma of lung, stage IV Qualifiers: Laterality: right Qualified Code(s): C34.91 - Malignant neoplasm of unspecified part of right bronchus or lung Is this a current diagnosis for this admission?: Yes Plan: He is on Keytruda and follows with Dr. Marsh. His white blood cell count was down today, but he paradoxically looks a lot better. (3) Hypertension Qualifiers: Hypertension type: essential hypertension Qualified Code(s): I10 - Essential (primary) hypertension Is this a current diagnosis for this admission?: Yes Plan: We will continue his losartan (4) Hypothyroidism Qualifiers: Hypothyroidism type: other Qualified Code(s): E03.8 - Other specified hypothyroidism Is this a current diagnosis for this admission?: Yes Plan: We will continue his Synthroid (5) BPH (benign prostatic hyperplasia) Qualifiers: Lower urinary tract symptom presence: symptoms present Lower urinary tract symptom detail: urinary hesitancy Qualified Code(s): N40.1 - Benign prostatic hyperplasia with lower urinary tract symptoms; R39.11 - Hesitancy of micturition Is this a current diagnosis for this admission?: Yes Plan: We will continue his Flomax (6) Hypocalcemia Is this a current diagnosis for this admission?: Yes Plan: This was replaced in the ER with an IV supplement. We will continue to replace as needed. (7) Colitis Is this a current diagnosis for this admission?: Yes Plan: Continue antibiotics and bowel regimen. - Time Time Spent with patient: 15-24 minutes
[2020-01-03] MEDS ORDERED: POTASSIUM CHLORIDE 10 MEQ TABLET.ER PO SCH (19:00)
[2020-01-03] MEDS: POTASSIUM CHLORIDE 10 MEQ TABLET.ER PO SCH (19:55)
[2020-01-04] MEDS: LEVOTHYROXINE SODIUM 0.15 MG TABLET PO SCH (06:09)
[2020-01-04] MEDS: METRONIDAZOLE 500 MG TABLET PO SCH ×3 (06:09→21:18)
[2020-01-04] MEDS: CIPROFLOXACIN HCL 500 MG TABLET PO SCH ×2 (10:19→21:17)
[2020-01-04] MEDS: POTASSIUM CHLORIDE 10 MEQ TABLET.ER PO SCH (10:19)
[2020-01-04] MEDS: LOSARTAN POTASSIUM 50 MG TABLET PO SCH ×2 (10:20→21:16)
[2020-01-04] MEDS: SENNOSIDES/DOCUSATE 8.6-50 MG 1 EACH TABLET PO SCH (10:20)
[2020-01-04] MEDS: TAMSULOSIN HCL 0.4 MG CAP.SR.24H PO SCH (10:20)
[2020-01-04 10:58] LABS: HEMATOCRIT 30.2 % (37.9-51.0); HEMOGLOBIN 10.3 g/dL (13.5-17.0); MEAN CORPUSCULAR HEMOGLOBIN 29.6 pg (27.0-33.4); MEAN CORPUSCULAR HGB CONC 33.9 g/dL (32.0-36.0); MEAN CORPUSCULAR VOLUME 87 fl (80-97); PLATELET COUNT 109 10^3/uL (150-450); RED BLOOD COUNT 3.46 10^6/uL (4.35-5.55); RED CELL DISTRIBUTION WIDTH 13.2 % (11.5-14.0)
[2020-01-04 11:15] LABS: WHITE BLOOD COUNT 1.1 10^3/uL (4.0-10.5)
--- NOTE | 2020-01-04 13:56 | PDOC PROGRESS REPORT ---
Subjective Progress Note for:: 01/04/20 Subjective:: No adverse events overnight. No fevers. His bowel movements are becoming more formed. He does not have any abdominal pain. His appetite is still not very good. He seems to eat better in the morning and then as the day goes on he does not eat as much. He denies any nausea. His white blood cell count has trended down the last couple of days. Reason For Visit: CONSTIPATION, COLITIS, HYPOCALCEMIA Physical Exam Vital Signs: Temp Pulse Resp BP Pulse Ox 97.8 F 100 15 128/82 H 97 01/04/20 12:00 01/04/20 12:00 01/04/20 12:00 01/04/20 12:00 01/04/20 12:00 Intake & Output 01/03/20 01/04/20 01/05/20 06:59 06:59 06:59 Intake Total 1151 912 120 Balance 1151 912 120 Weight 82.5 kg 84.1 kg General appearance: PRESENT: no acute distress, cooperative, disheveled, obese Respiratory exam: PRESENT: clear to auscultation gilma, symmetrical, unlabored. ABSENT: accessory muscle use, chest wall tenderness, crackles, prolonged expiratory phas, rhonchi, tachypnea, wheezes Cardiovascular exam: PRESENT: RRR, +S1, +S2 Pulses: PRESENT: normal carotid pulses Vascular exam: PRESENT: normal capillary refill GI/Abdominal exam: PRESENT: normal bowel sounds, soft. ABSENT: distended, guarding, rebound, tenderness Extremities exam: ABSENT: pedal edema Musculoskeletal exam: PRESENT: ambulatory, normal inspection. ABSENT: deformity Neurological exam: PRESENT: alert, awake, oriented to person, oriented to place, oriented to time, oriented to situation Psychiatric exam: PRESENT: appropriate affect, normal mood Skin exam: PRESENT: dry, warm Results Laboratory Results: 01/04/20 10:47 01/03/20 09:42 01/04/20 10:47 WBC 1.1 L* RBC 3.46 L Hgb 10.3 L Hct 30.2 L MCV 87 MCH 29.6 MCHC 33.9 RDW 13.2 Plt Count 109 L Impressions: Abdomen/Pelvis CT 12/30/19 15:58 IMPRESSION: 1. Long segment of bowel wall thickening involving the ascending colon and hepatic flexure. The finding is nonspecific and could represent an infectious, inflammatory or ischemic colitis. 2. Left pleural effusion that has increased in size from 12/09/2019. The pleural based nodules in the left hemithorax and the pre-pericardial adenopathy are unchanged. 3. Stable metastatic lesion in segment 3 of the liver. 4. Enlarging lytic lesion in the right acetabulum. KUB X-Ray 01/01/20 06:00 IMPRESSION: Nonobstructive bowel gas pattern. Assessment and Plan - Diagnosis (1) Constipation due to opioid therapy Is this a current diagnosis for this admission?: Yes Plan: This seems to be resolving well. We will send him home on a bowel regimen while he is on pain medication. (2) Squamous cell carcinoma of lung, stage IV Qualifiers: Laterality: right Qualified Code(s): C34.91 - Malignant neoplasm of unspecified part of right bronchus or lung Is this a current diagnosis for this admission?: Yes Plan: He is on paclitaxel and carboplatin and follows with Dr. Marsh. (3) Hypertension Qualifiers: Hypertension type: essential hypertension Qualified Code(s): I10 - Essential (primary) hypertension Is this a current diagnosis for this admission?: Yes Plan: We will continue his losartan (4) Hypothyroidism Qualifiers: Hypothyroidism type: other Qualified Code(s): E03.8 - Other specified hypothyroidism Is this a current diagnosis for this admission?: Yes Plan: We will continue his Synthroid (5) BPH (benign prostatic hyperplasia) Qualifiers: Lower urinary tract symptom presence: symptoms present Lower urinary tract symptom detail: urinary hesitancy Qualified Code(s): N40.1 - Benign prostatic hyperplasia with lower urinary tract symptoms; R39.11 - Hesitancy of micturition Is this a current diagnosis for this admission?: Yes Plan: We will continue his Flomax (6) Hypocalcemia Is this a current diagnosis for this admission?: Yes Plan: This was replaced in the ER with an IV supplement. We will continue to replace as needed. (7) Colitis Is this a current diagnosis for this admission?: Yes Plan: Continue antibiotics and bowel regimen. (8) Leukopenia due to antineoplastic chemotherapy Is this a current diagnosis for this admission?: Yes Plan: I spoke with Dr. Kenney. He recommended allowing the patient to go home tomorrow if he remains afebrile. He is to call the number he was provided from their office in case he has a fever at home. He is to return to their office this coming Monday for a CBC. - Time Time Spent with patient: 25-34 minutes
[2020-01-04] MEDS: ONDANSETRON HCL INJ/PF 4 MG/2 ML SDV IV PRN ×2 (17:13→21:25)
[2020-01-04] MEDS: KETOROLAC TROMETHAMINE INJ/PF 30 MG/1 ML SDV IV PRN (20:29)
[2020-01-04] MEDS: LORAZEPAM 0.5 MG TABLET PO PRN (20:30)
[2020-01-05] MEDS: LEVOTHYROXINE SODIUM 0.15 MG TABLET PO SCH (05:59)
[2020-01-05] MEDS: METRONIDAZOLE 500 MG TABLET PO SCH (06:04)
[2020-01-05] MEDS: TAMSULOSIN HCL 0.4 MG CAP.SR.24H PO SCH (10:35)
[2020-01-05] MEDS: LOSARTAN POTASSIUM 50 MG TABLET PO SCH (10:35)
[2020-01-05] MEDS: CIPROFLOXACIN HCL 500 MG TABLET PO SCH (10:35)
[2020-01-05] MEDS: POTASSIUM CHLORIDE 10 MEQ TABLET.ER PO SCH (10:35)
[2020-01-05] MEDS: SENNOSIDES/DOCUSATE 8.6-50 MG 1 EACH TABLET PO SCH (10:35)
[2020-01-05 11:14] VITALS: BP 108/77
[2020-01-05] MEDS: ONDANSETRON HCL INJ/PF 4 MG/2 ML SDV IV PRN (12:17)
--- NOTE | 2020-01-05 14:00 | PDOC DISCHARGE SUMMARY ---
Impression - Admit/DC Date/PCP Admission Date/Primary Care Provider: 12/31/19 14:36 KEMAL VILLELA MD Discharge Date: 01/05/20 - Discharge Diagnosis (1) Constipation due to opioid therapy Is this a current diagnosis for this admission?: Yes (2) Squamous cell carcinoma of lung, stage IV Is this a current diagnosis for this admission?: Yes (3) Hypertension Is this a current diagnosis for this admission?: Yes (4) Hypothyroidism Is this a current diagnosis for this admission?: Yes (5) BPH (benign prostatic hyperplasia) Is this a current diagnosis for this admission?: Yes (6) Hypocalcemia Is this a current diagnosis for this admission?: Yes (7) Colitis Is this a current diagnosis for this admission?: Yes (8) Leukopenia due to antineoplastic chemotherapy Is this a current diagnosis for this admission?: Yes - Additional Information Resuscitation Status: Full Code Discharge Diet: As Tolerated Discharge Activity: Balance Activity w/Rest, Supervised Activity Referrals: ONIEL KENNEY MD [ACTIVE STAFF] - Prescriptions: Ciprofloxacin HCl [Cipro 500 mg Tablet] 500 mg PO Q12 #20 tablet Metronidazole [Flagyl 500 mg Tablet] 500 mg PO Q8 #30 tablet Home Medications: Levothyroxine Sodium 150 mcg PO DAILY 08/26/17 Tamsulosin HCl [Flomax] 1 cap PO DAILY 03/07/19 Morphine Sulfate [Ms Contin] 15 mg PO Q4HP PRN 12/20/19 Fentanyl [Duragesic 25 mcg/hr Transdermal Patch] 1 each TD Q3D 12/30/19 Losartan Potassium 50 mg PO BID 12/30/19 Potassium Chloride [Klor-Con M20] 20 meq PO DAILY 12/30/19 Promethazine HCl [Phenergan 25 mg Tablet] 25 mg PO Q4HP PRN 12/30/19 Sennosides [Senokot] 17.2 mg PO DAILY 12/30/19 Ciprofloxacin HCl [Cipro 500 mg Tablet] 500 mg PO Q12 #20 tablet 01/05/20 Metronidazole [Flagyl 500 mg Tablet] 500 mg PO Q8 #30 tablet 01/05/20 History of Present Illiness History of Present Illness: JOHN SANTOS JR is a 69 year old male with a history of stage IV metastatic squamous cell carcinoma of the lung who just had his first dose of Keytruda 3 days ago, hypertension, hypothyroidism, and BPH who came to the emergency department because of abdominal discomfort. He said he is not had a bowel movement in 3 days and his belly was uncomfortable. He is not been running any fevers. He said he called EMS "because if you come up there by yourself they stick you in the lobby, and I figured this way they will have somebody go ahead and see me." He had a large stool burden in the colon on CT. I was told by the ER provider that he could not keep anything down p.o., but the patient told me that he has been able to take all of his medications and has not been throwing up. He said he has not had much of an appetite but he has not had any nausea or vomiting. Dr. Tipton saw him in the ER and recommended antibiotics and a soapsuds enema. He also had some nonspecific colon stranding on CT. His calcium level was low, otherwise his work-up was unremarkable. The patient is not a good historian, he does not know what medicines he is on and does not even know how much oxygen he is on at home. Hospital Course Hospital Course: It took some time for him to start having solid bowel movements, as he probably had some encopresis due to the hard ball of stool he had in his colon. Eventually it loosened up and he started passing some of it in his belly began to feel better. We had him empirically on some antibiotics which was due to what I suspect is been a stercoral colitis. He has had a good response and his appetite has improved. He has been afebrile. He has been sleeping a lot during the day. He had his first dose of carboplatin and paclitaxel over a week ago, about 9 or 10 days ago at this point. The last couple of days his white blood cell count has trended down. Fortunately, he has not been febrile. I spoke with Dr. Kenney who said that as long as he is not febrile we will just continue to monitor him. He is to go to Dr. Kenney's office on Monday to get a repeat CBC to assess his blood counts. He knows that if he develops a fever of greater than 100.4 F then he is to come back to the hospital. I have sent him home on a course of Cipro and Flagyl for his colitis. His has been given clear and concise instructions. His labs and examination were reassuring and he was discharged in stable condition. Physical Exam Vital Signs: Temp Pulse Resp BP Pulse Ox 97.6 F 110 H 15 108/77 98 01/05/20 11:11 01/05/20 11:11 01/05/20 11:11 01/05/20 11:11 01/05/20 11:11 Intake & Output 01/04/20 01/05/20 01/06/20 06:59 06:59 06:59 Intake Total 912 720 Balance 912 720 Weight 84.1 kg 84.8 kg General appearance: PRESENT: no acute distress, cooperative, disheveled, obese Respiratory exam: PRESENT: clear to auscultation gilma, symmetrical, unlabored. ABSENT: accessory muscle use, chest wall tenderness, crackles, prolonged expiratory phas, rhonchi, tachypnea, wheezes Cardiovascular exam: PRESENT: RRR, +S1, +S2 Pulses: PRESENT: normal carotid pulses Vascular exam: PRESENT: normal capillary refill GI/Abdominal exam: PRESENT: normal bowel sounds, soft. ABSENT: distended, guarding, rebound, tenderness Extremities exam: ABSENT: pedal edema Musculoskeletal exam: PRESENT: ambulatory, normal inspection. ABSENT: deformity Neurological exam: PRESENT: alert, awake, oriented to person, oriented to place, oriented to time, oriented to situation Psychiatric exam: PRESENT: appropriate affect, normal mood Skin exam: PRESENT: dry, warm Results Laboratory Results: WBC 1.1 10^3/uL (4.0-10.5) L* 01/04/20 10:47 RBC 3.46 10^6/uL (4.35-5.55) L 01/04/20 10:47 Hgb 10.3 g/dL (13.5-17.0) L 01/04/20 10:47 Hct 30.2 % (37.9-51.0) L 01/04/20 10:47 MCV 87 fl (80-97) 01/04/20 10:47 MCH 29.6 pg (27.0-33.4) 01/04/20 10:47 MCHC 33.9 g/dL (32.0-36.0) 01/04/20 10:47 RDW 13.2 % (11.5-14.0) 01/04/20 10:47 Plt Count 109 10^3/uL (150-450) L 01/04/20 10:47 Lymph % (Auto) Not Reportable 12/30/19 16:39 [place] % (Auto) Not Reportable 12/30/19 16:39 Eos % (Auto) Not Reportable 12/30/19 16:39 Baso % (Auto) Not Reportable 12/30/19 16:39 Absolute Neuts (auto) Not Reportable 12/30/19 16:39 Absolute Lymphs (auto) Not Reportable 12/30/19 16:39 Absolute Monos (auto) Not Reportable 12/30/19 16:39 Absolute Eos (auto) Not Reportable 12/30/19 16:39 Absolute Basos (auto) Not Reportable 12/30/19 16:39 Total Counted 100 12/30/19 16:39 Seg Neutrophils % Not Reportable 12/30/19 16:39 Seg Neuts % (Manual) 95 % (42-78) H 12/30/19 16:39 Lymphocytes % (Manual) 4 % (13-45) L 12/30/19 16:39 Monocytes % (Manual) 0 % (3-13) L 12/30/19 16:39 Eosinophils % (Manual) 1 % (0-6) 12/30/19 16:39 Basophils % (Manual) 0 % (0-2) 12/30/19 16:39 Abs Neuts (Manual) 7.5 10^3/uL (1.7-8.2) 12/30/19 16:39 Abs Lymphs (Manual) 0.3 10^3/uL (0.5-4.7) L 12/30/19 16:39 Abs Monocytes (Manual) 0.0 10^3/uL (0.1-1.4) L 12/30/19 16:39 Absolute Eos (Manual) 0.1 10^3/uL (0.0-0.6) 12/30/19 16:39 Abs Basophils (Manual) 0.0 10^3/uL (0.0-0.2) 12/30/19 16:39 Platelet Comment ADEQUATE 12/30/19 16:39 RBC Morph Comment NORMO-CYTIC/CHROMIC 12/30/19 16:39 Sodium 133.3 mmol/L (137-145) L 01/03/20 09:42 Potassium 3.1 mmol/L (3.6-5.0) L 01/03/20 09:42 Chloride 98 mmol/L (98-107) 01/03/20 09:42 Carbon Dioxide 30 mmol/L (22-30) 01/03/20 09:42 Anion Gap 5 (5-19) 01/03/20 09:42 BUN 18 mg/dL (7-20) 01/03/20 09:42 Creatinine 0.65 mg/dL (0.52-1.25) 01/03/20 09:42 Est GFR ( Amer) > 60 (>60) 01/03/20 09:42 Est GFR (MDRD) Non-Af > 60 (>60) 01/03/20 09:42 Glucose 147 mg/dL (75-110) H 01/03/20 09:42 Calcium 8.0 mg/dL (8.4-10.2) L 01/03/20 09:42 Impressions: Abdomen/Pelvis CT 12/30/19 15:58 IMPRESSION: 1. Long segment of bowel wall thickening involving the ascending colon and hepatic flexure. The finding is nonspecific and could represent an infectious, inflammatory or ischemic colitis. 2. Left pleural effusion that has increased in size from 12/09/2019. The pleural based nodules in the left hemithorax and the pre-pericardial adenopathy are unchanged. 3. Stable metastatic lesion in segment 3 of the liver. 4. Enlarging lytic lesion in the right acetabulum. KUB X-Ray 01/01/20 06:00 IMPRESSION: Nonobstructive bowel gas pattern. Plan Time Spent: Greater than 30 Minutes Stroke Is this a Stroke Patient?: No Acute Heart Failure - Is this a Heart Failure Patient?: No
== END 2020-01-05 12:30 | disposition home or self-care (01) | DRG 392 ==
LOC: ER 15:44 → INTOOBSV 18:02 → EH 18:02 → 4S 20:13 → OBSVTOIN 12-31 14:36
PROVIDERS: ADMIT Family Medicine; ATTEND Family Medicine
DX: K59.03 Drug induced constipation (principal); C78.7 Secondary malignant neoplasm of liver and intrahepatic bile duct; C34.91 Malignant neoplasm of unspecified part of right bronchus or lung; D70.1 Agranulocytosis secondary to cancer chemotherapy; E83.51 Hypocalcemia; T40.2X5A Adverse effect of other opioids, initial encounter; I10 Essential (primary) hypertension; K52.9 Noninfective gastroenteritis and colitis, unspecified; J44.9 Chronic obstructive pulmonary disease, unspecified; E89.0 Postprocedural hypothyroidism; M19.90 Unspecified osteoarthritis, unspecified site; R63.0 Anorexia; R53.1 Weakness; N40.1 Benign prostatic hyperplasia with lower urinary tract symptoms; R39.11 Hesitancy of micturition; E66.9 Obesity, unspecified; Z68.27 Body mass index [BMI] 27.0-27.9, adult; Z79.899 Other long term (current) drug therapy
CPT/HCPCS: 36415; 74018; 74177; 80048; 85025; 85027; 87040; 96361; 96374; 96375; 99285; J0610; G0378; J0696; J1885; J2270; J2405; J2550; J3010; J3490; J7030

== ENCOUNTER → 2020-01-07 | Outpatient (CLI) | payer MEDICARE ==
--- NOTE | 2020-01-07 11:29 | RADIOLOGY REPORT (SQ) ---
EXAM DESCRIPTION: MRI HEAD COMBO IMAGES COMPLETED DATE/TIME: 01/07/2020 11:07 am REASON FOR STUDY: LUNG CANCER (C34.90), NEUROLOGICAL CHANGES (R29.818) C34.90 MALIGNANT NEOPLASM OF UNSP PART OF UNSP BRONCHUS OR L R29.818 OTHER SYMPTOMS AND SIGNS INVOLVING THE NERVOUS SYSTE COMPARISON: Noncontrast head CT 08/26/2017 TECHNIQUE: Multiplanar imaging includes noncontrasted T1, T2, FLAIR, diffusion with ADC map and post gadolinium contrast T1 sequences. Images stored on PACS. CONTRAST TYPE AND DOSE: 15 mL Prohance. RENAL FUNCTION: Not indicated. ACR Type II contrast agent associated with few, if any, unconfounded cases of NSF LIMITATIONS: None. FINDINGS: ANATOMY: No anomalies. Normal vascular flow voids. Pituitary fossa normal. CSF SPACES: Normal in size and contour. No hemorrhage. CEREBRUM: Sulci and gyri normal in size and contour. There is a 4 x 7 x 7 mm nonenhancing T1 hypoint ense, T2 hyperintense focus with demonstrated hypointense hemosiderin rim within the left occipital s ubcortical white matter. Additionally, there appears to be a small developmental venous anomaly asso ciated with this finding. The adjacent brain parenchyma demonstrates normal signal. Bose- white mat ter signal are otherwise normal. POSTERIOR FOSSA: No signal alteration. No hemorrhage. No edema, masses, or mass effect. Internal roscoe tory canals, cerebellopontine angles, mastoids normal. No enhancing lesions. No abnormal enhancement post contrast. DIFFUSION IMAGING: Negative for acute or subacute infarction. ORBITS: No masses. Globes normal. PARANASAL SINUSES: No fluid levels. Mucosa normal. OTHER: No other significant finding. 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 EVIDENCE OF ACUTE STROKE: NO. TECHNICAL DOCUMENTATION: JOB ID: [id number] 2010 [employer]- All Rights Reserved Reading location - IP/workstation name: [email or web address]
== END ==
LOC: RAD 10:03
PROVIDERS: ATTEND Internal Medicine Hematology & Oncology
DX: C34.90 Malignant neoplasm of unspecified part of unspecified bronchus or lung (principal); R29.818 Other symptoms and signs involving the nervous system
CPT/HCPCS: 70553; A9576

== ENCOUNTER 2020-01-08 18:37 | Emergency (ER) | payer MEDICARE ==
--- NOTE | 2020-01-08 19:01 | ER Document Report ---
ED Medical Screen (RME) - General Chief Complaint: Inability to Void Stated Complaint: UNABLE TO URINATE Time Seen by Provider: 01/08/20 18:51 Primary Care Provider: ELA EMERSON MD [Primary Care Provider] - Follow up as needed Notes: Patient is a 69-year-old male who presents the emergency department with inability to void. Patient has stage IV cancer in his lungs, liver, and bone. Patient was just recently admitted to the hospital. He did not have a Layne catheter at that time, but but states that he has not been able to completely empty his bladder since last night. Exam: Soft, moderately tender mid lower abdomen. Exam limited due to patient in sitting position. I have greeted and performed a rapid initial assessment of this patient. A comprehensive ED assessment and evaluation of the patient, analysis of test results and completion of medical decision making process will be conducted by an additional ED providers. TRAVEL OUTSIDE OF THE [place] IN LAST 30 DAYS: No - Related Data Allergies/Adverse Reactions: No Known Allergies Allergy (Verified 01/08/20 18:54) Home Medications: ca Past Medical History - Social History Chew tobacco use (# tins/day): No Frequency of alcohol use: None Drug Abuse: None - Past Medical History Cardiac Medical History: Reports: Hx Hypertension Denies: Hx Coronary Artery Disease, Hx Heart Attack Pulmonary Medical History: Reports: Hx Asthma, Hx COPD, Hx Pneumonia Denies: Hx Bronchitis Neurological Medical History: Denies: Hx Cerebrovascular Accident, Hx Seizures Endocrine Medical History: Reports: Hx Hyperthyroidism, Hx Hypothyroidism - after thyroidectomy. Denies: Hx Diabetes Mellitus Type 1, Hx Diabetes Mellitus Type 2 Renal/ Medical History: Denies: Hx Kidney Stones, Hx Peritoneal Dialysis Malignancy Medical History: Denies Hx Prostate Cancer, Denies Hx Testicular Can cer Musculoskeltal Medical History: Reports Hx Arthritis Psychiatric Medical History: Denies: Hx Depression Past Surgical History: Reports: Hx Thyroid Surgery, Hx Tonsillectomy - Immunizations Immunizations up to date: Yes Hx Diphtheria, Pertussis, Tetanus Vaccination: No Physical Exam - Vital signs Vitals: Temp 99.6 F 01/08/20 18:54 Course - Vital Signs Vital signs: Temp Pulse Resp BP Pulse Ox 99.6 F 01/08/20 18:54 Doctor's Discharge - Discharge Referrals: ELA EMERSON MD [Primary Care Provider] - Follow up as needed
[2020-01-08 19:16] VITALS: BP 91/60
[2020-01-08 20:37] LABS: APPEARANCE,URINE CLEAR; BILIRUBIN,URINE NEGATIVE (NEGATIVE); COLOR,URINE YELLOW; GLUCOSE, URINE NEGATIVE (NEGATIVE); KETONES,URINE NEGATIVE (NEGATIVE); PROTEIN,URINE NEGATIVE (NEGATIVE); URINE SPECIFIC GRAVITY 1.014; UROBILINOGEN,URINE NEGATIVE mg/dL (<2.0)
--- NOTE | 2020-01-08 21:11 | ER Document Report ---
ED General - General Chief Complaint: Inability to Void Stated Complaint: UNABLE TO URINATE Time Seen by Provider: 01/08/20 18:51 Primary Care Provider: ELA MARSH MD [Primary Care Provider] - Follow up as needed Notes: 69 year old male presents to the ED for inability to urinate. Patient has stage 4 lung cancer and has had decreasing urine output since last evening. Patient is already using Flomax daily. No known cancer in the prostate. states the patient has poor fluid intake at baseline however he is eating popsicles. Patient is at his baseline level of sleepiness. In triage patient complained of significant lower abdominal tenderness palpation. My interview and examination took place after the Layne catheter was placed and patient is currently sleeping on does not appear to be in any pain. TRAVEL OUTSIDE OF THE [place] IN LAST 30 DAYS: No - Related Data Allergies/Adverse Reactions: No Known Allergies Allergy (Verified 01/08/20 18:54) Home Medications: ca Past Medical History - General Information source: Patient - Social History Smoking Status: Former Smoker Chew tobacco use (# tins/day): No Frequency of alcohol use: None Drug Abuse: None Family History: Reviewed & Not Pertinent Patient has homicidal ideation: No - Past Medical History Cardiac Medical History: Reports: Hx Hypertension Denies: Hx Coronary Artery Disease, Hx Heart Attack Pulmonary Medical History: Reports: Hx Asthma, Hx COPD, Hx Pneumonia Denies: Hx Bronchitis Neurological Medical History: Denies: Hx Cerebrovascular Accident, Hx Seizures Endocrine Medical History: Reports: Hx Hyperthyroidism, Hx Hypothyroidism - after thyroidectomy. Denies: Hx Diabetes Mellitus Type 1, Hx Diabetes Mellitus Type 2 Renal/ Medical History: Denies: Hx Kidney Stones, Hx Peritoneal Dialysis Malignancy Medical History: Denies Hx Prostate Cancer, Denies Hx Testicular Cancer Musculoskeletal Medical History: Reports Hx Arthritis Psychiatric Medical History: Denies: Hx Depression Past Surgical History: Reports: Hx Thyroid Surgery, Hx Tonsillectomy - Immunizations Immunizations up to date: Yes Hx Diphtheria, Pertussis, Tetanus Vaccination: No Review of Systems - Review of Systems Constitutional: No symptoms reported. denies: Fever Genitourinary: See HPI, Retention -: Yes All other systems reviewed and negative Physical Exam - Vital signs Vitals: Temp Pulse Resp BP Pulse Ox 99.6 F 107 H 18 91/60 L 96 01/08/20 18:53 01/08/20 18:53 01/08/20 18:53 01/08/20 18:53 01/08/20 18:53 Interpretation: Hypotensive, Tachycardic - Notes Notes: GENERAL: Sleeping, no acute distress. HEAD: Normocephalic, atraumatic ENT: Oral mucosa moist, tongue midline. NECK: trachea midline. LUNGS: no respiratory distress. ABDOMEN: Soft, nontender, nondistended, bowel sounds present in all 4 quadrants. EXTREMITIES: No cyanosis. SKIN: Warm, Dry, normal turgor. Course - Re-evaluation Re-evalutation: 01/08/20 21:16 Layne catheter placed, greater than 500 mL of urine obtained, patient is significantly more comfortable now that the Layne catheter is been placed, there is trace leukocyte esterase, in the urinalysis, no evidence of ketones or dehydration. Discussed case with Dr. Marsh who is the primary oncologist, she agrees that as the patient is not febrile at this point there is no indication for doing blood work, he is already known to be pancytopenic from his recent chemotherapy. Family is also agreeable to not doing blood work at this point. Patient will be discharged home with a Layne catheter in place, instructed to continue using the Flomax and return should he have less than 200 mL's of urine output every 24 hours. - Vital Signs Vital signs: Temp Pulse Resp BP Pulse Ox 99.6 F 107 H 18 91/60 L 96 01/08/20 18:54 01/08/20 18:53 01/08/20 18:53 01/08/20 18:53 01/08/20 18:53 - Laboratory Laboratory results interpreted by me: 01/08/20 20:18 Leukocyte Esterase Rfl TRACE H Discharge - Discharge Clinical Impression: Acute urinary retention Condition: Stable Disposition: HOME, SELF-CARE Additional Instructions: Please leave the Layne catheter in place. Monitor his urine output. If he has less than 200 mL's of urine output in 24 hours please return to the emergency department or see Dr. Marsh to check his kidney function. Continue using the generic version of Flomax. Referrals: ELA MARSH MD [Primary Care Provider] - Follow up as needed
== END 2020-01-08 21:57 | disposition home or self-care (01) ==
LOC: ER 18:37
DX: R33.9 Retention of urine, unspecified (principal); C34.90 Malignant neoplasm of unspecified part of unspecified bronchus or lung; I10 Essential (primary) hypertension; E03.9 Hypothyroidism, unspecified
CPT/HCPCS: 51702; 81001; 99283

== ENCOUNTER 2020-01-13 02:55 | Inpatient (IN) | payer MEDICARE ==
[2020-01-13] MEDS ORDERED: IPRATROPIUM/ALBUTEROL 0.5-2.5 MG/3 ML AMPUL NEB ONE ×2 (03:33→04:08)
[2020-01-13] MEDS ORDERED: METHYLPREDNISOLONE INJ 125 MG/2 ML SDV IV ONE (03:33)
[2020-01-13] MEDS ORDERED: NORMAL SALINE 1000 ML 1,000 ML IV ONE (03:34)
--- NOTE | 2020-01-13 03:35 | ER Document Report ---
ED Respiratory Problem - General Chief Complaint: Shortness Of Breath Stated Complaint: SHORTNESS OF BREATH/HAS STAGE 4 CANCER Time Seen by Provider: 01/13/20 03:19 Primary Care Provider: ELA MARSH MD [Primary Care Provider] - Follow up as needed Notes: Patient is a 69-year-old male with a history of COPD and stage IV lung cancer that comes emergency department for chief complaint of difficulty breathing that started last night. states patient has had increased labored breathing and difficulty breathing since last night, patient states he feels like he "just cannot catch my breath". He denies change in cough, fever, chest pain, headache, abdominal pain, vomiting. states patient's legs have both slightly swollen but this is minimal. Patient has no history of CAD or CHF reported, does not have diabetes. Past medical history includes hypertension, hypothyroidism status post thyroidectomy, and lung cancer with mets to lymph nodes, the other lung, liver, bone. Patient had chemotherapy earlier this month with Dr. Granado and is scheduled for another round within a week. TRAVEL OUTSIDE OF THE [place] IN LAST 30 DAYS: No - Related Data Allergies/Adverse Reactions: No Known Allergies Allergy (Verified 01/08/20 18:54) Past Medical History - General Information source: Patient - Social History Smoking Status: Former Smoker Chew tobacco use (# tins/day): No Drug Abuse: None Lives with: Family Family History: Reviewed & Not Pertinent - Past Medical History Cardiac Medical History: Reports: Hx Hypertension Denies: Hx Coronary Artery Disease, Hx Heart Attack Pulmonary Medical History: Reports: Hx Asthma, Hx COPD, Hx Pneumonia Denies: Hx Bronchitis Neurological Medical History: Denies: Hx Cerebrovascular Accident, Hx Seizures Endocrine Medical History: Reports: Hx Hyperthyroidism, Hx Hypothyroidism - after thyroidectomy. Denies: Hx Diabetes Mellitus Type 1, Hx Diabetes Mellitus Type 2 Renal/ Medical History: Denies: Hx Kidney Stones, Hx Peritoneal Dialysis Malignancy Medical History: Reports Hx Lung Cancer - Stage IV with metastasis to lymph nodes, liver, bones, Denies Hx Prostate Cancer, Denies Hx Testicular Cancer Musculoskeletal Medical History: Reports Hx Arthritis Psychiatric Medical History: Denies: Hx Depression Past Surgical History: Reports: Hx Thyroid Surgery, Hx Tonsillectomy - Immunizations Immunizations up to date: Yes Hx Diphtheria, Pertussis, Tetanus Vaccination: No Review of Systems - Review of Systems Constitutional: No symptoms reported EENT: No symptoms reported Cardiovascular: See HPI Respiratory: See HPI Gastrointestinal: No symptoms reported Genitourinary: No symptoms reported Male Genitourinary: No symptoms reported Musculoskeletal: No symptoms reported Skin: No symptoms reported Hematologic/Lymphatic: No symptoms reported Neurological/Psychological: No symptoms reported Physical Exam - Vital signs Vitals: Temp Pulse Resp BP Pulse Ox 97.9 F 110 H 16 99/61 L 96 01/13/20 03:10 01/13/20 03:10 01/13/20 03:10 01/13/20 03:10 01/13/20 03:10 - Notes Notes: GENERAL: Awake, eyes closed, responsive, appears moderately ill HEAD: Normocephalic, atraumatic. EYES: Pupils equal, round, and reactive to light. Extraocular movements intact. ENT: Oral mucosa moist, tongue midline. Oropharynx unremarkable. Airway patent. NECK: Full range of motion. Supple. Trachea midline. No lymphadenopathy. LUNGS: Tachypnea with labored breathing and accessory muscle use. Decreased breath sounds throughout and expiratory wheezes throughout. Still able to speak in full sentences. HEART: Tachycardic, normal rhythm, no murmur ABDOMEN: Soft, non-tender. Non-distended. EXTREMITIES: Moves all 4 extremities spontaneously. No edema, normal radial and dorsalis pedis pulses bilaterally. No cyanosis. BACK: no cervical, thoracic, lumbar midline tenderness. No saddle anesthesia, normal distal neurovascular exam. Moves all extremities in full range of motion. NEUROLOGICAL: Alert and oriented x3. Normal speech. Cranial nerves II through XII grossly intact. Strength 5/5 in all extremities. PSYCH: Normal affect, normal mood. SKIN: slightly pale Course - Re-evaluation Re-evalutation: 01/13/20 04:55 On my initial evaluation patient is tachypneic with respiratory distress, labored breathing. Patient is tachycardic with borderline blood pressure although this was rechecked and the blood pressure was normal. His oxygen saturation is 95% on 4 L nasal cannula, I downtrending patient's oxygen, he quickly desaturated to about 90% within a few moments, he was placed back up on 3 L nasal cannula and is oxygenating well on this. Patient with initial expiratory wheezes throughout, he was given 2 duo nebs, Solu-Medrol, IV fluids. On closer evaluation patient is improved, respiratory rate has decreased, labored breathing has almost resolved, patient with much improved lung auscultation and only a few scattered wheezes. Patient is talking more, states he feels much improved. Chest x-ray nonspecific with no overt acute findings. CBC with no leukocytosis or leukopenia. Chemistry nonspecific. Troponin is not elevated. BNP is borderline in the 100s. ABG shows elevated oxygen but patient is on oxygen, CO2 is slightly elevated in the 50s, pH is normal. Lactic acid is not elevated. On evaluation wheezing is almost resolved but patient still has significant shortness of breath. Patient is still tachycardic and the 110-115 range. Patient has a history of stage IV lung cancer with metastasis. Discussed with patient and family, decision was made to proceed with CTA to rule out pulmonary embolism causing patient's acute shortness of breath along with COPD exacerbation. 01/13/20 I called and spoke with Dr. Marsh, patient's oncologist, patient will be discussed with hospitalist for admission and she will consult on the patient. She confirms patient did have chemotherapy this month and was scheduled to have it in close follow-up. Discussed with patient and , patient is still full code at this time although the states that they were planning on "having a discussion". They are in full agreement with admission. I spoke with Dr. Monreal, hospitalist, he accepts patient to his service, requested I speak with general surgery because he does not believe that interventional radiology draining the pleural effusion will be enough. I called and spoke with Dr. Le, he states that he will consult on the patient. - Vital Signs Vital signs: Temp Pulse Resp BP Pulse Ox 97.9 F 110 H 16 96/71 L 94 01/13/20 03:10 01/13/20 03:10 01/13/20 07:00 01/13/20 05:05 01/13/20 07:00 - Laboratory Result Diagrams: 01/13/20 03:40 01/13/20 03:40 Laboratory results interpreted by me: 01/13/20 01/13/20 01/13/20 03:40 03:40 03:40 RBC 3.73 L Hgb 11.0 L Hct 32.9 L Seg Neuts % (Manual) 87 H Band Neutrophils % 1 L Lymphocytes % (Manual) 3 L Abs Neuts (Manual) 8.6 H Abs Lymphs (Manual) 0.3 L Carbonic Acid ABG pCO2 ABG pO2 ABG HCO3 ABG Total CO2 Sodium 132.9 L Chloride 91 L Carbon Dioxide 39 H Anion Gap 3 L Glucose 119 H NT-Pro-B Natriuret Pep 136 H Total Protein 6.2 L Albumin 2.7 L 01/13/20 03:40 RBC Hgb Hct Seg Neuts % (Manual) Band Neutrophils % Lymphocytes % (Manual) Abs Neuts (Manual) Abs Lymphs (Manual) Carbonic Acid 1.80 H ABG pCO2 59.7 H ABG pO2 102.5 H ABG HCO3 40.6 H ABG Total CO2 42.4 H Sodium Chloride Carbon Dioxide Anion Gap Glucose NT-Pro-B Natriuret Pep Total Protein Albumin Discharge - Discharge Clinical Impression: Shortness of breath, Hypoxia, Pleural effusion, COPD exacerbation, Wheezing Stage 4 lung cancer Qualifiers: Laterality: left Qualified Code(s): C34.92 - Malignant neoplasm of unspecified part of left bronchus or lung Condition: Stable Disposition: ADMITTED INPATIENT Admitting Provider: Jocelin (Hospitalist) Referrals: ELA MARSH MD [Primary Care Provider] - Follow up as needed
[2020-01-13 04:04] LABS: HEMATOCRIT 32.9 % (37.9-51.0); MEAN CORPUSCULAR HEMOGLOBIN 29.6 pg (27.0-33.4); MEAN CORPUSCULAR HGB CONC 33.6 g/dL (32.0-36.0); MEAN CORPUSCULAR VOLUME 88 fl (80-97); PLATELET COUNT 310 10^3/uL (150-450); RED BLOOD COUNT 3.73 10^6/uL (4.35-5.55); RED CELL DISTRIBUTION WIDTH 13.7 % (11.5-14.0); WHITE BLOOD COUNT 9.8 10^3/uL (4.0-10.5)
--- NOTE | 2020-01-13 04:16 | RADIOLOGY REPORT (SQ) ---
CLINICAL INDICATION: shortness of breath, hypoxia. TECHNIQUE: A single portable AP view was obtained of the chest at 0403 hours. COMPARISON: December 19, 2019. FINDINGS: The cardiomediastinal silhouette is stable. The lungs demonstrate volume loss left hemithorax with leftward shift of the mediastinum. Atelectasis. May be a component of effusion is well on the left. Right lung is grossly clear. No pneumothorax. Postsurgical change cervicothoracic junction. New right-sided port catheter in good position. IMPRESSION: Progressive atelectasis left hemithorax.
[2020-01-13 04:21] LABS: ALBUMIN 2.7 g/dL (3.5-5.0); ALKALINE PHOSPHATASE 102 U/L (38-126); ASPARTATE AMINO TRANSFERASE 22 U/L (17-59); BILIRUBIN,TOTAL 0.5 mg/dL (0.2-1.3); BLOOD UREA NITROGEN 11 mg/dL (7-20); CALCIUM 8.8 mg/dL (8.4-10.2); GLUCOSE 119 mg/dL (75-110); POTASSIUM 4.9 mmol/L (3.6-5.0); TOTAL PROTEIN 6.2 g/dL (6.3-8.2)
[2020-01-13 04:23] LABS: ABSOLUTE LYMPHOCYTES# (MANUAL) 0.3 10^3/uL (0.5-4.7); ABSOLUTE MONOCYTES # (MANUAL) 0.9 10^3/uL (0.1-1.4); BAND NEUTROPHILS % (MANUAL) 1 % (3-5); BASOPHILS % (MANUAL) 0 % (0-2); EOSINOPHILS % (MANUAL) 0 % (0-6); LYMPHOCYTES % (MANUAL) 3 % (13-45); MONOCYTES % (MANUAL) 9 % (3-13); SEGMENTED NEUTROPHILS % (MAN) 87 % (42-78); TOTAL CELLS COUNTED 100
[2020-01-13 04:24] LABS: POIKILOCYTOSIS 1+; STOMATOCYTES 1+
[2020-01-13 04:25] LABS: ARTERIAL BLOOD BASE EXCESS 14.4 mmol/L; ARTERIAL BLOOD HCO3 40.6 mmol/L (20-24); ARTERIAL BLOOD O2 SATURATION 97.8 % (94-98); ARTERIAL BLOOD PCO2 59.7 mmHg (35-45); ARTERIAL BLOOD PH 7.45 (7.35-7.45); ARTERIAL BLOOD PO2 102.5 mmHg (80-100); ARTERIAL BLOOD TOTAL CO2 42.4 mmol/L (23-27); PLATELET COMMENT ADEQUATE
[2020-01-13 04:27] LABS: ARTERIAL BLOOD FIO2 3L NC; CARBON DIOXIDE 39 mmol/L (22-30); CHLORIDE 91 mmol/L (98-107)
[2020-01-13 04:28] LABS: ANION GAP 3 (5-19)
[2020-01-13 04:33] LABS: NT PRO BNP 136 pg/mL (<125)
[2020-01-13 04:37] LABS: TROPONIN I < 0.012 ng/mL
--- NOTE | 2020-01-13 06:07 | RADIOLOGY REPORT (SQ) ---
EXAM: CT Angiography Chest With Intravenous Contrast EXAM DATE/TIME: 01/13/2020 5:16 AM CLINICAL HISTORY: The patient is 69 years old and is Male; difficulty breathing, hx lung cancer TECHNIQUE: Axial computed tomographic angiography images of the chest with intravenous contrast. Sagittal and coronal reformatted images were created and reviewed. This CT exam was performed using one or more of the following dose reduction techniques: automated exposure control, adjustment of the mA and/or kV according to patient size, and/or use of iterative reconstruction technique. MIP reconstructed images were created and reviewed. COMPARISON: CT chest from 12/09/2019; chest radiograph from 620 FINDINGS: PULMONARY ARTERIES: No filling defects identified within the pulmonary arteries to suggest pulmonary embolism. AORTA: No acute findings. No thoracic aortic aneurysm or dissection. SUPERIOR MESENTERIC ARTERY: There is moderate to severe narrowing of the proximal SMA which appears unchanged. LUNGS: There is persistent occlusion of the left upper lobe bronchus secondary to the known central obstructing malignancy. However, there is now also apparent occlusion of the left lower lobe bronchus. There is associated complete collapse of the left lung. The collapsed left upper lobe is slightly decreased in density compared to the collapsed left lower lobe. There is apparent occlusion of the pulmonary veins to the left upper lobe in the region of the hilum. The left lower lobe pulmonary venous drainage appears intact. There is minimal dependent atelectasis in the right lung. PLEURAL SPACE: There is a moderately sized left pleural effusion which is increased in size compared to the prior study. Trace right pleural effusion now visualized. HEART: No significant cardiomegaly. No pericardial effusion. BONES/JOINTS: Mild degenerative changes of the spine. No acute fracture. A large soft tissue mass compatible with metastatic disease is again visualized in the right posterior chest wall, with associated destruction of the right posterior 6th rib. This mass measures approximately 7.8 x 4.2 cm, compared to 8.1 x 4.4 cm on a comparable exam from the prior study. SOFT TISSUES: See above. LYMPH NODES: There are two mildly enlarged left axillary lymph nodes, measuring up to 1.4 x 1.3 cm. On the prior exam, this lymph node measured 0.9 x 0.6 cm. There is a mildly prominent subcarinal lymph node measuring 1.3 cm. This is not significantly changed. Otherwise, no significant mediastinal lymph node enlargement visualized. Left hilar lymph nodes are difficult to evaluate. No significant right hilar lymph node enlargement visualized. Nodularity along the left heart border, which may represent enlarged pericardial lymph nodes, is similar to the prior exam. GALLBLADDER AND BILE DUCTS: Mild nonspecific gallbladder wall thickening. SPLEEN: The spleen is somewhat heterogeneous in attenuation, which may be due to the phase of contrast. KIDNEYS AND URETERS: Right renal cyst. TUBES, LINES AND DEVICES: Right chest port in place, terminating in the SVC. IMPRESSION: 1. Complete collapse of the left lung, secondary to obstruction of the left upper and lower lobe bronchi in the hilar region. The left upper lobe bronchus was also obstructed on the prior study, secondary to the known central malignancy. The left lower lobe bronchial obstruction is new compared to the prior study and may be related to be obstructing malignancy or mucous plugging. 2. Moderately sized left pleural effusion which is increased in size compared to the prior study. A trace right pleural effusion is also now visualized. 3. Interval enlargement of left axillary lymph nodes, suspicious for metastatic disease. 4. Large right posterior chest wall mass again demonstrated, with erosion of the right posterior 6th rib. The soft tissue mass is slightly decreased in size. 5. No evidence of pulmonary embolism.
--- NOTE | 2020-01-13 06:11 | EKG REPORT ---
SEVERITY:- ABNORMAL ECG - SINUS TACHYCARDIA RIGHT BUNDLE BRANCH BLOCK LEFT POST FASCICULAR BLOCK : Confirmed by: Rizwan Gore MD 13-Jan-2020 06:10:52
[2020-01-13] MEDS ORDERED: IPRATROPIUM/ALBUTEROL 0.5-2.5 MG/3 ML AMPUL NEB PRN (08:49)
[2020-01-13] MEDS ORDERED: ACETAMINOPHEN 325 MG TABLET PO PRN (08:49)
[2020-01-13] MEDS ORDERED: PROMETHAZINE HCL INJ 25 MG/1 ML VIAL IV PRN ×3 (08:57→14:49)
[2020-01-13] MEDS ORDERED: MAG HYDROX/AL HYDROX/SIMETH SUSP 30 ML UDCUP PO PRN (08:57)
[2020-01-13] MEDS ORDERED: ONDANSETRON HCL INJ/PF 4 MG/2 ML SDV IV PRN (08:57)
[2020-01-13] MEDS ORDERED: POLYETHYLENE GLYCOL 3350 POWDER 17 GM/1 PACKET PO PRN (09:06)
[2020-01-13 09:14] LABS: APPEARANCE,URINE CLEAR; BILIRUBIN,URINE NEGATIVE (NEGATIVE); COLOR,URINE YELLOW; GLUCOSE, URINE NEGATIVE (NEGATIVE); KETONES,URINE TRACE mg/dL (NEGATIVE); PROTEIN,URINE 30 mg/dL (NEGATIVE); UROBILINOGEN,URINE NEGATIVE mg/dL (<2.0)
--- NOTE | 2020-01-13 09:24 | PDOC H&P ---
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 Patient shortness of breath has increased beyond his baseline over the past 3 to 5 days and has especially worsened in the past 2 days. Overnight and this morning he was having a very difficult time breathing and as such decided to come to the hospital. He complains of cough but without significant sputum production. He occasionally has chest cramps but none currently. Of note he was recently admitted to the hospital and treated for colitis and discharged on 01/05/2020 with prescriptions for antibiotics. In the ER, he was noted to be wheezing and given breathing treatments and some steroids. CT reveals significant pleural effusion of his left side. Past Medical History Cardiac Medical History: Reports: Hypertension Denies: Coronary Artery Disease, Myocardial Infarction Pulmonary Medical History: Reports: Asthma, Chronic Obstructive Pulmonary Disease (COPD), Pneumonia Denies: Bronchitis Neurological Medical History: Denies: Seizures Endocrine Medical History: Reports: Hyperthyroidism, Hypothyroidism - after thyroidectomy Denies: Diabetes Mellitus Type 1, Diabetes Mellitus Type 2 Malignancy Medical History: Reports: Lung Cancer - Stage IV with metastasis to lymph nodes, liver, bones Musculoskeltal Medical History: Reports: Arthritis Psychiatric Medical History: Denies: Depression Hematology: Denies: Anemia Past Surgical History Past Surgical History: Reports: Tonsillectomy Social History Lives with: Family Smoking Status: Former Smoker Electronic Cigarette use?: No Frequency of Alcohol Use: None Hx Recreational Drug Use: No Drugs: None Hx Prescription Drug Abuse: No - Advance Directive Resuscitation Status: Do Not Resuscitate - DNR/DNI Family History Family History: Hypertension Parental Family History Reviewed: Yes Children Family History Reviewed: Unknown Sibling(s) Family History Reviewed.: Unknown Medication/Allergy Home Medications: Tamsulosin HCl [Flomax] 1 cap PO DAILY 03/07/19 Morphine Sulfate [Ms Contin] 15 mg PO Q4HP PRN 12/20/19 Levothyroxine Sodium [Euthyrox] 175 mcg PO Q6AM 01/13/20 Metoclopramide HCl 5 mg PO QIDP PRN 01/13/20 Allergies/Adverse Reactions: No Known Allergies Allergy (Verified 01/08/20 18:54) Review of Systems Constitutional: ABSENT: chills, fever(s) Eyes: ABSENT: visual disturbances Nose, Mouth, and Throat: ABSENT: headache(s) Cardiovascular: PRESENT: orthropnea. ABSENT: chest pain Respiratory: PRESENT: dyspnea Gastrointestinal: ABSENT: abdominal pain, nausea, vomiting Genitourinary: ABSENT: dysuria Integumentary: ABSENT: diaphoresis Neurological: PRESENT: dizziness - Lightheaded Endocrine: ABSENT: polyuria Allergic/Immunologic: ABSENT: seasonal rhinorrhea Physical Exam Vital Signs: Temp Pulse Resp BP Pulse Ox 97.9 F 110 H 14 96/71 L 96 01/13/20 03:10 01/13/20 03:10 01/13/20 08:00 01/13/20 05:05 01/13/20 08:00 Intake & Output 01/12/20 01/13/20 01/14/20 06:59 06:59 06:59 Intake Total 1000 Balance 1000 General appearance: PRESENT: no acute distress, cooperative Head exam: PRESENT: normocephalic Mouth exam: PRESENT: neck supple Neck exam: ABSENT: JVD Respiratory exam: PRESENT: decreased breath sounds - . Right lung sounds clear. Left lungs has very little air movement, unlabored. ABSENT: accessory muscle use, retraction, symmetrical, tachypnea, wheezes Cardiovascular exam: PRESENT: +S1, +S2, tachycardia. ABSENT: irregular rhythm GI/Abdominal exam: PRESENT: soft. ABSENT: rebound, rigid, tenderness Extremities exam: PRESENT: pedal edema, +1 edema. ABSENT: calf tenderness Neurological exam: PRESENT: alert, awake, oriented to person, oriented to place, oriented to time, oriented to situation Psychiatric exam: ABSENT: agitated, anxious Results Laboratory Results: 01/13/20 03:40 01/13/20 03:40 01/13/20 01/13/20 01/13/20 03:40 03:40 03:40 WBC 9.8 RBC 3.73 L Hgb 11.0 L Hct 32.9 L MCV 88 MCH 29.6 MCHC 33.6 RDW 13.7 Plt Count 310 Seg Neutrophils % Not Reportable Carbonic Acid 1.80 H HCO3/H2CO3 Ratio 22:1 ABG pH 7.45 ABG pCO2 59.7 H ABG pO2 102.5 H ABG HCO3 40.6 H ABG O2 Saturation 97.8 ABG Base Excess 14.4 FiO2 3L NC Sodium 132.9 L Potassium 4.9 Chloride 91 L Carbon Dioxide 39 H Anion Gap 3 L BUN 11 Creatinine 0.54 Est GFR ( Amer) > 60 Glucose 119 H Lactic Acid Calcium 8.8 Total Bilirubin 0.5 AST 22 Alkaline Phosphatase 102 Total Protein 6.2 L Albumin 2.7 L 01/13/20 01/13/20 04:00 06:36 WBC RBC Hgb Hct MCV MCH MCHC RDW Plt Count Seg Neutrophils % Carbonic Acid HCO3/H2CO3 Ratio ABG pH ABG pCO2 ABG pO2 ABG HCO3 ABG O2 Saturation ABG Base Excess FiO2 Sodium Potassium Chloride Carbon Dioxide Anion Gap BUN Creatinine Est GFR ( Amer) Glucose Lactic Acid 0.8 1.1 Calcium Total Bilirubin AST Alkaline Phosphatase Total Protein Albumin 01/13/20 03:40 Troponin I < 0.012 NT-Pro-B Natriuret Pep 136 H Impressions: Chest X-Ray 01/13/20 03:32 IMPRESSION: Progressive atelectasis left hemithorax. Chest/Abdomen CTA 01/13/20 04:43 IMPRESSION: 1. Complete collapse of the left lung, secondary to obstruction of the left upper and lower lobe bronchi in the hilar region. The left upper lobe bronchus was also obstructed on the prior study, secondary to the known central malignancy. The left lower lobe bronchial obstruction is new compared to the prior study and may be related to be obstructing malignancy or mucous plugging. 2. Moderately sized left pleural effusion which is increased in size compared to the prior study. A trace right pleural effusion is also now visualized. 3. Interval enlargement of left axillary lymph nodes, suspicious for metastatic disease. 4. Large right posterior chest wall mass again demonstrated, with erosion of the right posterior 6th rib. The soft tissue mass is slightly decreased in size. 5. No evidence of pulmonary embolism. Assessment and Plan - Diagnosis (1) Acute and chronic respiratory failure with hypoxia Is this a current diagnosis for this admission?: Yes Plan: SPO2 currently improved with nasal cannula. We will continue to monitor. Patient was started on home oxygen for his lung cancer in the past few months. We will continue to monitor. Hypoxia now complicated by malignant effusion on left lung collapse. (2) Malignant pleural effusion Is this a current diagnosis for this admission?: Yes Plan: CT of the chest shows no PE but does show large right lung mass as well as in left lung with significant amount of pleural effusion in the left side [likely malignant] leading to almost complete left lung collapse. This is likely the source of patient's respiratory distress. I have discussed potential options with patient. I have also consulted surgery to evaluate potential for drainage with chest tube or Pleurx catheter. Will monitor closely in the IMCU. Check coags. (3) COPD exacerbation Is this a current diagnosis for this admission?: Yes Plan: Received steroids and breathing treatment in the ER. Currently not wheezing. I will continue patient on frequent nebulizer treatments but I will hold off on steroids for now except if wheezing recurs and worsens. I believe most of his respiratory distress is from his pleural effusion and left lung collapse. (4) Acute urinary retention Is this a current diagnosis for this admission?: Yes Plan: Has indwelling Layne. Continue tamsulosin. (5) Colitis Is this a current diagnosis for this admission?: Yes Plan: Patient recently treated for colitis and prescribed ciprofloxacin and Flagyl. I will continue ciprofloxacin and Flagyl for the next 2 days as prescribed. Patient seems to have improved significantly from this standpoint. (6) Squamous cell carcinoma of lung, stage IV Qualifiers: Laterality: right Qualified Code(s): C34.91 - Malignant neoplasm of unspecified part of right bronchus or lung Is this a current diagnosis for this admission?: Yes Plan: Diagnosed October 2019 with stage IV squamous cell cancer involving both lungs with metastasis to liver and spine. Started on Keytruda earlier this month. Oncology will be following. - Time Time Spent with patient: 35 or more minutes
--- NOTE | 2020-01-13 09:28 | ADVANCED CARE ---
- Diagnosis (1) Acute and chronic respiratory failure with hypoxia Diagnosis Current: Yes (2) Malignant pleural effusion Diagnosis Current: Yes (6) Squamous cell carcinoma of lung, stage IV Diagnosis Current: Yes Attendance: Patient's , myself and patient Resuscitation Status: Do Not Resuscitate - DNR/DNI Discussion: We discussed potential options for treatment of patient. We also discussed patient's code status and patient opts for DNI/DNR. I discussed oxygen supplementation options if patient's respiratory condition should deteriorate. Patient is okay with noninvasive measures for oxygen supplementation but does not want to be intubated under any means including in the absence of cardiac arrest. Patient states that, should it ever come to the point where intubation is needed, then he should be transitioned to hospice and made comfortable. Also discussed measures for addressing his current situation. Time Spent: 17 mins
[2020-01-13 09:46] LABS: PROTHROMBIN TIME 15.3 SEC (11.4-15.4)
[2020-01-13 09:47] LABS: PARTIAL THROMBOPLASTIN TIME 29.7 SEC (23.5-35.8)
--- NOTE | 2020-01-13 09:52 | PDOC CONSULTATION ---
Consultation Consult Date: 01/13/20 Attending physician:: THIAGO ADAMS Provider Consulted: RUTH LE Consult reason:: Left pleural effusion History of Present Illness Admission Date/PCP: 01/13/20 08:22 ELA MARSH MD History of Present Illness: JOHN SANTOS JR is a 69 year old male Presents to the emergency department via ground rescue complaining of progre ssive shortness of breath. Patient has stage IV lung cancer, status post [id number] placement by Dr. Le 3 weeks ago, status post 1 round of chemotherapy under the direction of Dr. Marsh, who was found in the emergency department to have advanced shortness of breath and relative hypoxemia. Chest x-ray showed white out of the left lung. CT scan of the chest revealed no evidence of pulmonary embolus, enlargement of left axillary lymph nodes, complete collapse of the left lung due to obstructing malignancies of the left upper and left lower lobe bronchi, and a moderate sized pleural effusion. There is no significant mediastinal shift. Patient is being admitted to the hospitalist service for optimization of his pulmonary status, review of DNR status and of aggressiveness of care. Surgery was consulted for management of left pleural effusion. Past Medical History Cardiac Medical History: Reports: Hypertension Denies: Coronary Artery Disease, Myocardial Infarction Pulmonary Medical History: Reports: Asthma, Chronic Obstructive Pulmonary Disease (COPD), Pneumonia Denies: Bronchitis Neurological Medical History: Denies: Seizures Endocrine Medical History: Reports: Hyperthyroidism, Hypothyroidism - after thyroidectomy Denies: Diabetes Mellitus Type 1, Diabetes Mellitus Type 2 Malignancy Medical History: Reports: Lung Cancer - Stage IV with metastasis to lymph nodes, liver, bones Musculoskeltal Medical History: Reports: Arthritis Psychiatric Medical History: Denies: Depression Hematology: Denies: Anemia Past Surgical History Past Surgical History: Right subclavian port placement 3 weeks ago Past Surgical History: Reports: Tonsillectomy Social History Lives with: Family Smoking Status: Former Smoker Electronic Cigarette use?: No Frequency of Alcohol Use: None Hx Recreational Drug Use: No Drugs: None Hx Prescription Drug Abuse: No - Advance Directive Resuscitation Status: Do Not Resuscitate - DNR/DNI Family History Family History: None, Hypertension Parental Family History Reviewed: No Children Family History Reviewed: No Sibling(s) Family History Reviewed.: No Medication/Allergy Home Medications: Tamsulosin HCl [Flomax] 1 cap PO DAILY 03/07/19 Morphine Sulfate [Ms Contin] 15 mg PO Q4HP PRN 12/20/19 Levothyroxine Sodium [Euthyrox] 175 mcg PO Q6AM 01/13/20 Metoclopramide HCl 5 mg PO QIDP PRN 01/13/20 Allergies/Adverse Reactions: No Known Allergies Allergy (Verified 01/08/20 18:54) Review of Systems ROS unobtainable: Due to mental status, Other - Patient unable to participate in review of systems due to heavy level of sedation Physical Exam Vital Signs: Temp Pulse Resp BP Pulse Ox 97.9 F 110 H 14 96/71 L 96 01/13/20 03:10 01/13/20 03:10 01/13/20 08:00 01/13/20 05:05 01/13/20 08:00 Intake & Output 01/12/20 01/13/20 01/14/20 06:59 06:59 06:59 Intake Total 1000 Balance 1000 Weight 83.4 kg General appearance: PRESENT: other - Examined hospital room 12 the emergency department, oxygen on, eyes closed, at bedside Eye exam: PRESENT: other - Unable to assess Mouth exam: PRESENT: dry mucosa Neck exam: PRESENT: other - No JVD Respiratory exam: PRESENT: other - Markedly diminished breath sounds left chest Cardiovascular exam: PRESENT: other - Right subclavian port with Steri-Strips overlying incision Pulses: PRESENT: normal carotid pulses, normal radial pulses, normal femoral pulses GI/Abdominal exam: PRESENT: soft - Soft, nontender Neurological exam: PRESENT: oriented to place Psychiatric exam: PRESENT: other - Patient sedated communicating in limited fashion with . Focused psych exam: PRESENT: other - Very sleepy Skin exam: PRESENT: dry Results Laboratory Results: 01/13/20 03:40 01/13/20 03:40 01/13/20 01/13/20 01/13/20 03:40 03:40 03:40 WBC 9.8 RBC 3.73 L Hgb 11.0 L Hct 32.9 L MCV 88 MCH 29.6 MCHC 33.6 RDW 13.7 Plt Count 310 Seg Neutrophils % Not Reportable Carbonic Acid 1.80 H HCO3/H2CO3 Ratio 22:1 ABG pH 7.45 ABG pCO2 59.7 H ABG pO2 102.5 H ABG HCO3 40.6 H ABG O2 Saturation 97.8 ABG Base Excess 14.4 FiO2 3L NC Sodium 132.9 L Potassium 4.9 Chloride 91 L Carbon Dioxide 39 H Anion Gap 3 L BUN 11 Creatinine 0.54 Est GFR ( Amer) > 60 Glucose 119 H Lactic Acid Calcium 8.8 Total Bilirubin 0.5 AST 22 Alkaline Phosphatase 102 Total Protein 6.2 L Albumin 2.7 L Urine Color Urine Appearance Urine pH Ur Specific [place] Urine Protein Urine Glucose (UA) Urine Ketones Urine Blood Urine RBC (Auto) 01/13/20 01/13/20 01/13/20 04:00 06:36 08:57 WBC RBC Hgb Hct MCV MCH MCHC RDW Plt Count Seg Neutrophils % Carbonic Acid HCO3/H2CO3 Ratio ABG pH ABG pCO2 ABG pO2 ABG HCO3 ABG O2 Saturation ABG Base Excess FiO2 Sodium Potassium Chloride Carbon Dioxide Anion Gap BUN Creatinine Est GFR ( Amer) Glucose Lactic Acid 0.8 1.1 Calcium Total Bilirubin AST Alkaline Phosphatase Total Protein Albumin Urine Color YELLOW Urine Appearance CLEAR Urine pH 7.0 Ur Specific [place] 1.040 Urine Protein 30 H Urine Glucose (UA) NEGATIVE Urine Ketones TRACE H Urine Blood MODERATE H Urine RBC (Auto) 35 01/13/20 03:40 Troponin I < 0.012 NT-Pro-B Natriuret Pep 136 H Impressions: Chest X-Ray 01/13/20 03:32 IMPRESSION: Progressive atelectasis left hemithorax. Chest/Abdomen CTA 01/13/20 04:43 IMPRESSION: 1. Complete collapse of the left lung, secondary to obstruction of the left upper and lower lobe bronchi in the hilar region. The left upper lobe bronchus was also obstructed on the prior study, secondary to the known central malignancy. The left lower lobe bronchial obstruction is new compared to the prior study and may be related to be obstructing malignancy or mucous plugging. 2. Moderately sized left pleural effusion which is increased in size compared to the prior study. A trace right pleural effusion is also now visualized. 3. Interval enlargement of left axillary lymph nodes, suspicious for metastatic disease. 4. Large right posterior chest wall mass again demonstrated, with erosion of the right posterior 6th rib. The soft tissue mass is slightly decreased in size. 5. No evidence of pulmonary embolism. Assessment & Plan - Diagnosis (1) Pleural effusion Is this a current diagnosis for this admission?: Yes Plan: Impression: Progressive moderate left pleural effusion, stated with extensive intrathoracic malignancy consistent with metastatic stage IV lung cancer, with associated hypoxemia and shortness of breath. Discussion and recommendations 1. I discussed patient's care with hospitalist, as well as a medical oncologist this morning. He agreed that the patient and family will need to discuss levels of aggressiveness of care, particularly DNR status. This is being done by the hospitalist currently. Patient is poor candidate for aggressive therapy. 2. With regards to the left pleural effusion, multiple options are available including thoracentesis, chest tube placement, and Pleurx catheter. Considering the patient's overall grave prognosis, and movement towards comfort care, I think a Pleurx catheter would be reasonable. Patient's coags are normal. I discussed several of these options with the patient's at bedside briefly. We will tentatively set the patient up for a Pleurx catheter later today. D iscussed the details of the procedure the patient and family again. (2) Acute and chronic respiratory failure with hypoxia Is this a current diagnosis for this admission?: Yes (3) Stage 4 lung cancer Qualifiers: Laterality: left Qualified Code(s): C34.92 - Malignant neoplasm of unspecif ied part of left bronchus or lung - Time Time Spent: 30 to 50 Minutes Smoking Cessation Education: over 10 minutes Medications reviewed and adjusted accordingly: Yes Anticipated discharge: Home
[2020-01-13] MEDS ORDERED: ENOXAPARIN SODIUM INJ 40 MG/0.4 ML DISP.SYRIN SUBCUT SCH (10:00)
[2020-01-13] MEDS ORDERED: DOCUSATE SODIUM 100 MG CAPSULE PO SCH (10:00)
[2020-01-13] MEDS: LOSARTAN POTASSIUM 50 MG TABLET PO SCH ×2 (10:09→22:22)
[2020-01-13] MEDS: TAMSULOSIN HCL 0.4 MG CAP.SR.24H PO SCH (10:09)
[2020-01-13] MEDS: CIPROFLOXACIN HCL 500 MG TABLET PO SCH ×2 (10:09→22:21)
[2020-01-13] MEDS: FAMOTIDINE 20 MG TABLET PO SCH ×2 (10:10→22:22)
[2020-01-13] MEDS: SENNOSIDES/DOCUSATE 8.6-50 MG 1 EACH TABLET PO SCH (10:10)
[2020-01-13] MEDS: FENTANYL 25 MCG/HR PATCH.TD72 TD SCH (10:25)
[2020-01-13] MEDS: LEVALBUTEROL HCL NEB 1.25 MG/3 ML AMPUL NEB SCH ×2 (13:28→20:03)
[2020-01-13] MEDS ORDERED: FENTANYL CITRATE INJ/PF 100 MCG/2 ML AMPUL ONE (14:13)
[2020-01-13] MEDS ORDERED: ONDANSETRON HCL INJ/PF 4 MG/2 ML SDV ONE (14:13)
[2020-01-13] MEDS ORDERED: PROPOFOL INJ 200 MG/20 ML VIAL IV ONE (14:13)
[2020-01-13] MEDS ORDERED: DIPHENHYDRAMINE HCL 50 MG/ML VIAL IV PRN (14:49)
[2020-01-13] MEDS ORDERED: MEPERIDINE HCL/PF INJ 25 MG/1 ML DISP.SYRIN IV PRN (14:49)
[2020-01-13] MEDS ORDERED: FENTANYL CITRATE INJ/PF 100 MCG/2 ML AMPUL IV PRN ×3 (14:49)
[2020-01-13] MEDS ORDERED: OXYCODONE-ACETAMINOPHEN 5-325 MG TABLET PO PRN ×2 (14:49)
--- NOTE | 2020-01-13 15:01 | Operative Report ---
Operative Report DATE OF SURGERY: 01/13/20 PREOPERATIVE DIAGNOSIS: 1. Malignant left pleural effusion. 2. Advanced meta static lung carcinoma POSTOPERATIVE DIAGNOSIS: Same OPERATION: Placement of a left chest Pleurx catheter SURGEON: RUTH BRENNAN ANESTHESIA: LMAC TISSUE REMOVED OR ALTERED: None COMPLICATIONS: None ESTIMATED BLOOD LOSS: Scant INTRAOPERATIVE FINDINGS: See below PROCEDURE: The patient was taken to the preop holding area to the main operating room, kept on the gurney, and LMAC anesthesia induced. He was placed in the right lateral decubitus position, left side. The left posterior lateral chest was prepped and draped in sterile fashion. Surgical plan and surgical timeout were conducted. Suitable site for placement of the Pleurx catheter was chosen in the posterior lateral back approximately 2 fingerbreadths below the inferior margin of the scapula. The skin was anesthetized 1% plain lidocaine, opening made in the skin with 11 blade, and the 18-gauge needle was threaded over the rib into the left pleural space. Straw-colored fluid returned, and the 0.030 guidewire was inserted into the left pleural space. A suitable site for exit of the Pleurx catheter was chosen in the left lateral chest approximately 8 cm from the first incision at the same horizontal level. The skin was anesthetized 1% plain lidocaine, opening made in the skin with a 11 blade, and the Pleurx catheter then tunneled between the 2 incisions with the cuff seated approximately midway between the incisions. We now threaded the dilator introducer sheath over the guidewire, guidewire and dilator removed, and free end of Pleurx catheter threaded into the left pleural space. There was some intake of air. We ensure that there was no kinking of the catheter. It had a nice bend to it as it was diving into the chest. Wounds were closed with 3-0 Vicryl 0 silk Biopatch and appropriate sterile dressings applied. The Pleurx catheter was attached to the proprietary tubing and several liters of left pleural fluid drained. The patient tolerated procedure well. Taken recovery in stable condition. Portable chest x-ray pending at time dictation.
[2020-01-13] MEDS: FENTANYL CITRATE INJ/PF 100 MCG/2 ML AMPUL ONE ×2 (15:11→15:15)
--- NOTE | 2020-01-13 15:56 | RADIOLOGY REPORT (SQ) ---
EXAM DESCRIPTION: CHEST SINGLE VIEW IMAGES COMPLETED DATE/TIME: 01/13/2020 3:31 pm REASON FOR STUDY: Status post left Pleurx catheter insertion COMPARISON: CT of the chest with contrast from 01/13/2020. EXAM PARAMETERS: NUMBER OF VIEWS: One view. TECHNIQUE: An AP view of the chest was obtained. RADIATION DOSE: NA LIMITATIONS: None. FINDINGS: LUNGS AND PLEURA: Interval placement of a left-sided PleurX catheter. There is an apical pneumothorax. MEDIASTINUM AND HILAR STRUCTURES: Stable mediastinal and hilar contours. HEART AND VASCULAR STRUCTURES: Stable enlarged cardiac silhouette. BONES: No acute findings. HARDWARE: The tip of the right IJ approach single-lumen port projects at the level of the cavoatrial junction. OTHER: No other finding. IMPRESSION: Interval placement of a left-sided PleurX catheter. There is an apical pneumothorax. TECHNICAL DOCUMENTATION: JOB ID: [id number] 2010 [employer]- All Rights Reserved Reading location - IP/workstation name: [email or web address]
[2020-01-13] MEDS: METRONIDAZOLE 500 MG TABLET PO SCH ×2 (16:24→22:21)
[2020-01-13] MEDS ORDERED: HYDROMORPHONE HCL INJ/PF 2 MG/ML AMPULE IV PRN (17:26)
--- NOTE | 2020-01-13 19:48 | RADIOLOGY REPORT (SQ) ---
EXAM DESCRIPTION: CHEST SINGLE VIEW IMAGES COMPLETED DATE/TIME: 01/13/2020 7:31 pm REASON FOR STUDY: pneumothorax COMPARISON: None. EXAM PARAMETERS: NUMBER OF VIEWS: One view. TECHNIQUE: Single frontal radiographic view of the chest acquired. RADIATION DOSE: NA LIMITATIONS: None. FINDINGS: LUNGS AND PLEURA: The apical pneumothorax has not resolved. There is persistent opacifica tion in the left hemithorax. MEDIASTINUM AND HILAR STRUCTURES: No masses. Contour normal. HEART AND VASCULAR STRUCTURES: Heart normal in size. Normal vasculature. BONES: No acute findings. HARDWARE: Injection port on the right. Small chest tube on the left. OTHER: No other significant finding. IMPRESSION: Persistent small apical pneumothorax. Persistent opacification in the left having thora x with reduced volume. There could be a layered pleural effusion. There could be atelectasis. TECHNICAL DOCUMENTATION: JOB ID: [id number] 2010 [employer]- All Rights Reserved Reading location - IP/workstation name: [email or web address]
[2020-01-13] MEDS: OXYCODONE-ACETAMINOPHEN 5-325 MG TABLET PO PRN (22:27)
[2020-01-14] MEDS: LEVALBUTEROL HCL NEB 1.25 MG/3 ML AMPUL NEB SCH ×4 (02:19→20:13)
[2020-01-14] MEDS: METRONIDAZOLE 500 MG TABLET PO SCH ×3 (06:01→21:23)
[2020-01-14] MEDS: LEVOTHYROXINE SODIUM 0.15 MG TABLET PO SCH (06:01)
[2020-01-14 06:15] LABS: HEMATOCRIT 29.8 % (37.9-51.0); HEMOGLOBIN 9.9 g/dL (13.5-17.0); MEAN CORPUSCULAR HEMOGLOBIN 29.3 pg (27.0-33.4); MEAN CORPUSCULAR HGB CONC 33.1 g/dL (32.0-36.0); MEAN CORPUSCULAR VOLUME 88 fl (80-97); PLATELET COUNT 290 10^3/uL (150-450); RED BLOOD COUNT 3.38 10^6/uL (4.35-5.55); WHITE BLOOD COUNT 8.1 10^3/uL (4.0-10.5)
[2020-01-14 06:36] LABS: BLOOD UREA NITROGEN 13 mg/dL (7-20); CALCIUM 8.1 mg/dL (8.4-10.2); CHLORIDE 96 mmol/L (98-107); GLUCOSE 113 mg/dL (75-110); POTASSIUM 4.9 mmol/L (3.6-5.0)
[2020-01-14 06:42] LABS: CARBON DIOXIDE 37 mmol/L (22-30)
[2020-01-14 06:46] LABS: ANION GAP 1 (5-19)
[2020-01-14 07:17] LABS: ABSOLUTE LYMPHOCYTES# (MANUAL) 0.9 10^3/uL (0.5-4.7); ABSOLUTE MONOCYTES # (MANUAL) 0.3 10^3/uL (0.1-1.4); BASOPHILS % (MANUAL) 0 % (0-2); EOSINOPHILS % (MANUAL) 0 % (0-6); LYMPHOCYTES % (MANUAL) 11 % (13-45); MONOCYTES % (MANUAL) 4 % (3-13); SEGMENTED NEUTROPHILS % (MAN) 85 % (42-78); TOTAL CELLS COUNTED 100
[2020-01-14 07:24] LABS: ANISOCYTOSIS SLIGHT; POIKILOCYTOSIS SLIGHT; STOMATOCYTES SLIGHT; TOXIC GRANULATION 1+
[2020-01-14 07:25] LABS: PLATELET COMMENT ADEQUATE
--- NOTE | 2020-01-14 09:06 | RADIOLOGY REPORT (SQ) ---
EXAM DESCRIPTION: CHEST SINGLE VIEW IMAGES COMPLETED DATE/TIME: 01/14/2020 8:36 am REASON FOR STUDY: effusion. pneumothorax COMPARISON: AP view of the chest from 01/13/2020. EXAM PARAMETERS: NUMBER OF VIEWS: One view. TECHNIQUE: An AP view of the chest was obtained. RADIATION DOSE: NA LIMITATIONS: None. FINDINGS: LUNGS AND PLEURA: Unchanged radiographic appearance of the lungs and pleura. MEDIASTINUM AND HILAR STRUCTURES: Stable mediastinal and hilar contours. HEART AND VASCULAR STRUCTURES: Stable cardiac silhouette. BONES: No acute findings. HARDWARE: None in the chest. OTHER: PleurX catheter in the left hemithorax, surgical clips that project above the thoracic inlet o n the left, and right IJ single-lumen port that projects within the SVC. IMPRESSION: Status post placement of a left-sided PleurX catheter. There is re- demonstration of le ft-sided pneumothorax that is unchanged. The increased diffuse opacity of the left hemithorax, the b lunting of the left costophrenic sulcus, the obscuration of the left hemidiaphragm, and the asymmetri c left-sided volume loss are unchanged. TECHNICAL DOCUMENTATION: JOB ID: [id number] 2010 [employer]- All Rights Reserved Reading location - IP/workstation name: [email or web address]
--- NOTE | 2020-01-14 09:51 | PDOC PROGRESS REPORT ---
Subjective Progress Note for:: 01/14/20 Subjective:: 69-year-old male with advanced lung cancer, now with a large left pleural effusion, status post Pleurx catheter. The patient reports breathing much easier today. He slept well last night. He denies shortness of breath, chest pain, fevers, chills, nausea, vomiting, headache, dizziness. He does complain of constipation, as he has not had a bowel movement in 2 or 3 days. Reason For Visit: HYPOXIA, MALIGNANT EFFUSION Physical Exam Vital Signs: Temp Pulse Resp BP Pulse Ox 97.5 F 82 14 108/70 97 01/14/20 08:01 01/14/20 09:08 01/14/20 09:08 01/14/20 08:01 01/14/20 09:08 Intake & Output 01/13/20 01/14/20 01/15/20 06:59 06:59 06:59 Intake Total 1000 460 Output Total 2080 Balance 1000 -1620 Weight 84.4 kg General appearance: PRESENT: no acute distress, cooperative Head exam: PRESENT: atraumatic, normocephalic Eye exam: ABSENT: scleral icterus Mouth exam: PRESENT: neck supple Neck exam: ABSENT: tracheostomy Respiratory exam: PRESENT: other - Pleurx catheter in place in the left lateral posterior chest. ABSENT: tachypnea Cardiovascular exam: ABSENT: tachycardia GI/Abdominal exam: PRESENT: soft. ABSENT: ascites, distended, firm, tenderness Rectal exam: PRESENT: deferred Musculoskeletal exam: ABSENT: deformity Neurological exam: PRESENT: alert, awake, oriented to person, oriented to place, oriented to time, oriented to situation, CN II-XII grossly intact Psychiatric exam: ABSENT: agitated, anxious Focused psych exam: ABSENT: delusional Skin exam: ABSENT: cyanosis, erythema, jaundice Results Laboratory Results: 01/14/20 05:42 01/14/20 05:42 01/13/20 01/14/20 01/14/20 09:31 05:42 05:42 WBC 8.1 RBC 3.38 L Hgb 9.9 L Hct 29.8 L MCV 88 MCH 29.3 MCHC 33.1 RDW 14.0 Plt Count 290 Seg Neutrophils % Not Reportable Sodium 134.1 L Potassium 4.9 Chloride 96 L Carbon Dioxide 37 H Anion Gap 1 L BUN 13 Creatinine 0.61 Est GFR ( Amer) > 60 Glucose 113 H Lactic Acid 1.5 Calcium 8.1 L Magnesium 2.2 01/13/20 03:40 Troponin I < 0.012 NT-Pro-B Natriuret Pep 136 H Impressions: Chest/Abdomen CTA 01/13/20 04:43 IMPRESSION: 1. Complete collapse of the left lung, secondary to obstruction of the left upper and lower lobe bronchi in the hilar region. The left upper lobe bronchus was also obstructed on the prior study, secondary to the known central malignancy. The left lower lobe bronchial obstruction is new compared to the prior study and may be related to be obstructing malignancy or mucous plugging. 2. Moderately sized left pleural effusion which is increased in size compared to the prior study. A trace right pleural effusion is also now visualized. 3. Interval enlargement of left axillary lymph nodes, suspicious for metastatic disease. 4. Large right posterior chest wall mass again demonstrated, with erosion of the right posterior 6th rib. The soft tissue mass is slightly decreased in size. 5. No evidence of pulmonary embolism. Chest X-Ray 01/14/20 06:35 IMPRESSION: Status post placement of a left-sided PleurX catheter. There is re- demonstration of left-sided pneumothorax that is unchanged. The increased diffuse opacity of the left hemithorax, the blunting of the left costophrenic sulcus, the obscuration of the left hemidiaphragm, and the asymmetric left-sided volume loss are unchanged. Assessment & Plan - Diagnosis (1) Malignant pleural effusion Is this a current diagnosis for this admission?: Yes (2) Stage 4 lung cancer Qualifiers: Laterality: left Qualified Code(s): C34.92 - Malignant neoplasm of unspecified part of left bronchus or lung Is this a current diagnosis for this admission?: Yes - Plan Summary Plan Summary: This is a 69-year-old male status post Pleurx catheter for large left-sided malignant pleural effusion. The patient is feeling much better today. He slept well last night. I have instructed the patient and his family to use the Pleurx catheter whenever he begins to feel short of breath. This will help to determin e the frequency that he will require drainage. I will add fiber to his bowel regimen. Surgery will sign off at this time. Please renotify with any questions or concerns.
[2020-01-14] MEDS: LOSARTAN POTASSIUM 50 MG TABLET PO SCH (10:13)
[2020-01-14] MEDS: TAMSULOSIN HCL 0.4 MG CAP.SR.24H PO SCH (10:14)
[2020-01-14] MEDS: SENNOSIDES/DOCUSATE 8.6-50 MG 1 EACH TABLET PO SCH (10:14)
[2020-01-14] MEDS: FAMOTIDINE 20 MG TABLET PO SCH ×2 (10:14→21:23)
[2020-01-14] MEDS: ENOXAPARIN SODIUM INJ 40 MG/0.4 ML DISP.SYRIN SUBCUT SCH (10:14)
[2020-01-14] MEDS: CIPROFLOXACIN HCL 500 MG TABLET PO SCH ×2 (10:14→21:23)
[2020-01-14] MEDS: PSYLLIUM SEED-SF 5.85 GM PACKET PO SCH ×2 (10:15→17:46)
--- NOTE | 2020-01-14 12:10 | PDOC PROGRESS REPORT ---
Subjective Progress Note for:: 01/14/20 Reason For Visit: HYPOXIA, MALIGNANT EFFUSION Physical Exam Vital Signs: Temp Pulse Resp BP Pulse Ox 97.5 F 82 14 108/70 97 01/14/20 08:01 01/14/20 09:08 01/14/20 09:08 01/14/20 08:01 01/14/20 09:08 Intake & Output 01/13/20 01/14/20 01/15/20 06:59 06:59 06:59 Intake Total 1000 460 400 Output Total 2080 300 Balance 1000 -1620 100 Weight 84.4 kg Results Laboratory Results: 01/14/20 05:42 01/14/20 05:42 01/14/20 01/14/20 05:42 05:42 WBC 8.1 RBC 3.38 L Hgb 9.9 L Hct 29.8 L MCV 88 MCH 29.3 MCHC 33.1 RDW 14.0 Plt Count 290 Seg Neutrophils % Not Reportable Sodium 134.1 L Potassium 4.9 Chloride 96 L Carbon Dioxide 37 H Anion Gap 1 L BUN 13 Creatinine 0.61 Est GFR ( Amer) > 60 Glucose 113 H Calcium 8.1 L Magnesium 2.2 01/13/20 03:40 Troponin I < 0.012 NT-Pro-B Natriuret Pep 136 H Impressions: Chest/Abdomen CTA 01/13/20 04:43 IMPRESSION: 1. Complete collapse of the left lung, secondary to obstruction of the left upper and lower lobe bronchi in the hilar region. The left upper lobe bronchus was also obstructed on the prior study, secondary to the known central malignancy. The left lower lobe bronchial obstruction is new compared to the prior study and may be related to be obstructing malignancy or mucous plugging. 2. Moderately sized left pleural effusion which is increased in size compared to the prior study. A trace right pleural effusion is also now visualized. 3. Interval enlargement of left axillary lymph nodes, suspicious for metastatic disease. 4. Large right posterior chest wall mass again demonstrated, with erosion of the right posterior 6th rib. The soft tissue mass is slightly decreased in size. 5. No evidence of pulmonary embolism. Chest X-Ray 01/14/20 06:35 IMPRESSION: Status post placement of a left-sided PleurX catheter. There is re- demonstration of left-sided pneumothorax that is unchanged. The increased diffuse opacity of the left hemithorax, the blunting of the left costophrenic sulcus, the obscuration of the left hemidiaphragm, and the asymmetric left-sided volume loss are unchanged. Assessment and Plan - Diagnosis (1) Malignant pleural effusion Is this a current diagnosis for this admission?: Yes Plan: On admission, CT of the chest shows no PE but does show large right lung mass as well as in left lung with significant amount of pleural effusion in the left side [likely malignant] leading to almost complete left lung collapse. This is likely the source of patient's respiratory distress. Pleurx catheter was placed yesterday by surgery. So far the Pleurx catheter has drained with 3 L of viscous fluid. Patient will be going home with the Pleurx catheter. I have discussed with surgery who recommends that patient use the Pleurx catheter to drain as frequently as whenever he starts to feel short of breath. Chest x-ray today shows improved aeration of the lung. I have instructed patient to continue to use incentive spirometer to help with lung r ecruitment and reinflation following compressive atelectasis. We will monitor patient today and monitor his vitals. I will also have patient evaluated by physical therapy. Discharge planning consulted for residential to help with Pleurx management. (2) Acute and chronic respiratory failure with hypoxia Is this a current diagnosis for this admission?: Yes Plan: SPO2 currently improved with nasal cannula. We will continue to monitor. Patient was started on home oxygen for his lung cancer in the past few months. We will continue to monitor. Hypoxia now complicated by malignant effusion on left lung collapse. (3) Pneumothorax, left Is this a current diagnosis for this admission?: Yes Plan: Left apical pneumothorax is unchanged on chest x-ray today. Discussed with Dr. Frederick who states that this is an expected occurrence with placement and obed pulation of the Pleurx catheter and no intervention is needed further. (4) COPD exacerbation Is this a current diagnosis for this admission?: Yes Plan: Received steroids and breathing treatment in the ER. Currently still not wheez ing. I will continue patient on frequent nebulizer treatments but I will hold off on steroids for now except if wheezing recurs and worsens. I believe most of his respiratory distress is from his pleural effusion and left lung collapse. (5) Acute urinary retention Is this a current diagnosis for this admission?: Yes Plan: Has indwelling Layne. Continue tamsulosin. (6) Colitis Is this a current diagnosis for this admission?: Yes Plan: Patient recently treated for colitis and prescribed ciprofloxacin and Flagyl. I will continue ciprofloxacin and Flagyl for 1 more day as prescribed. Patient seems to have improved significantly from this standpoint. (7) Squamous cell carcinoma of lung, stage IV Qualifiers: Laterality: right Qualified Code(s): C34.91 - Malignant neoplasm of unspec ified part of right bronchus or lung Is this a current diagnosis for this admission?: Yes Plan: Diagnosed October 2019 with stage IV squamous cell cancer involving both lungs with metastasis to liver and spine. Started on Keytruda earlier this month. Oncology will be following. - Time Time Spent with patient: Less than 15 minutes
--- NOTE | 2020-01-14 12:32 | PDOC CONSULTATION ---
Consultation Consult Date: 01/14/20 Provider Consulted: ELA EMERSON Consult reason:: Hematology/Oncology consultation was requested for patient on active chemo for lung cancer and new pleural effusion with dyspnea. History of Present Illness Admission Date/PCP: 01/13/20 08:22 ELA EMERSON MD History of Present Illness: JOHN SANTOS JR is a 69 year old male who was diagnosed with inoperable lung cancer a few months ago. He underwent his first cycle of chemo with paclitaxol/carboplatin on 12/26/2019. He was admitted to the hospital shortly therafter and just discharged on the for constipation and urinary retension. Layne catheter was placed and this remains in place today. Over the last 48 hours, he had sudden, but markedly progressive increase in his dyspnea. In the ED, he was found to have no evidence of PE, but large pleural effusion and a collapsed lung. Pleurex was placed and patient is feeling much better today. He was able to get some sleep last night. He had been eating and drinking well. No difficulties with the Layne. Past Medical History Cardiac Medical History: Reports: Hypertension Denies: Coronary Artery Disease, Myocardial Infarction Pulmonary Medical History: Reports: Asthma, Chronic Obstructive Pulmonary Disease (COPD), Pneumonia Denies: Bronchitis Neurological Medical History: Denies: Seizures Endocrine Medical History: Reports: Hyperthyroidism, Hypothyroidism - after thyroidectomy Denies: Diabetes Mellitus Type 1, Diabetes Mellitus Type 2 Malignancy Medical History: Reports: Lung Cancer - Stage IV with metastasis to lymph nodes, liver, bones Musculoskeltal Medical History: Reports: Arthritis Psychiatric Medical History: Denies: Depression Hematology: Denies: Anemia Past Surgical History Past Surgical History: Reports: Tonsillectomy Social History Lives with: Family Smoking Status: Former Smoker Electronic Cigarette use?: No Frequency of Alcohol Use: None Hx Recreational Drug Use: No Drugs: None Hx Prescription Drug Abuse: No - Advance Directive Resuscitation Status: Full Code Family History Parental Family History Reviewed: Yes Children Family History Reviewed: Yes Sibling(s) Family History Reviewed.: Yes Medication/Allergy Home Medications: Tamsulosin HCl [Flomax] 1 cap PO DAILY 03/07/19 Morphine Sulfate [Ms Contin] 15 mg PO Q4HP PRN 12/20/19 Fentanyl [Duragesic 25 mcg/hr Transdermal Patch] 1 patch TOP Q3D 01/13/20 Levothyroxine Sodium [Euthyrox] 175 mcg PO Q6AM 01/13/20 Losartan Potassium [Cozaar 50 mg Tablet] 50 mg PO DAILY 01/13/20 Metoclopramide HCl 5 mg PO QIDP PRN 01/13/20 Metronidazole [Flagyl 500 mg Tablet] 500 mg PO Q8 MDD FILLED 01/04 FOR 10 DAY SUPPLY 01/13/20 Sennosides/Docusate Sodium [Senna-S 8.6-50 mg Tablet] 1 each PO BID 01/13/20 Allergies/Adverse Reactions: No Known Allergies Allergy (Verified 01/08/20 18:54) Review of Systems Constitutional: ABSENT: fever(s), headache(s) Eyes: ABSENT: visual disturbances Ears: ABSENT: hearing changes Nose, Mouth, and Throat: ABSENT: sore throat Respiratory: PRESENT: dyspnea Gastrointestinal: ABSENT: constipation, nausea Genitourinary: PRESENT: as per HPI Integumentary: ABSENT: rash Neurological: PRESENT: weakness Psychiatric: PRESENT: anxiety Hematologic/Lymphatic: ABSENT: easy bleeding Physical Exam Vital Signs: Temp Pulse Resp BP Pulse Ox 97.5 F 82 14 108/70 97 01/14/20 08:01 01/14/20 09:08 01/14/20 09:08 01/14/20 08:01 01/14/20 09:08 Intake & Output 01/13/20 01/14/20 01/15/20 06:59 06:59 06:59 Intake Total 1000 460 Output Total 2080 Balance 1000 -1620 Weight 84.4 kg General appearance: PRESENT: no acute distress, thin Exam: 69 year old male. Head exam: PRESENT: atraumatic, normocephalic Eye exam: PRESENT: EOMI Mouth exam: PRESENT: tongue midline Neck exam: ABSENT: lymphadenopathy, tenderness Respiratory exam: PRESENT: decreased breath sounds, unlabored Cardiovascular exam: PRESENT: RRR GI/Abdominal exam: PRESENT: soft. ABSENT: tenderness Extremities exam: ABSENT: pedal edema Neurological exam: PRESENT: alert, awake Psychiatric exam: PRESENT: appropriate affect Skin exam: PRESENT: normal color Results Laboratory Results: 01/14/20 05:42 01/14/20 05:42 01/14/20 01/14/20 05:42 05:42 WBC 8.1 RBC 3.38 L Hgb 9.9 L Hct 29.8 L MCV 88 MCH 29.3 MCHC 33.1 RDW 14.0 Plt Count 290 Seg Neutrophils % Not Reportable Sodium 134.1 L Potassium 4.9 Chloride 96 L Carbon Dioxide 37 H Anion Gap 1 L BUN 13 Creatinine 0.61 Est GFR ( Amer) > 60 Glucose 113 H Calcium 8.1 L Magnesium 2.2 01/13/20 03:40 Troponin I < 0.012 NT-Pro-B Natriuret Pep 136 H Impressions: Chest/Abdomen CTA 01/13/20 04:43 IMPRESSION: 1. Complete collapse of the left lung, secondary to obstruction of the left upper and lower lobe bronchi in the hilar region. The left upper lobe bronchus was also obstructed on the prior study, secondary to the known central malignancy. The left lower lobe bronchial obstruction is new compared to the prior study and may be related to be obstructing malignancy or mucous plugging. 2. Moderately sized left pleural effusion which is increased in size compared to the prior study. A trace right pleural effusion is also now visualized. 3. Interval enlargement of left axillary lymph nodes, suspicious for metastatic disease. 4. Large right posterior chest wall mass again demonstrated, with erosion of the right posterior 6th rib. The soft tissue mass is slightly decreased in size. 5. No evidence of pulmonary embolism. Chest X-Ray 01/14/20 06:35 IMPRESSION: Status post placement of a left-sided PleurX catheter. There is re- demonstration of left-sided pneumothorax that is unchanged. The increased diffuse opacity of the left hemithorax, the blunting of the left costophrenic sulcus, the obscuration of the left hemidiaphragm, and the asymmetric left-sided volume loss are unchanged. Assessment & Plan - Diagnosis (1) Acute and chronic respiratory failure with hypoxia Is this a current diagnosis for this admission?: Yes (2) Pleural effusion Is this a current diagnosis for this admission?: Yes Plan: s/p pleurex. Much improved. He will need help with Pleurex at home. HHN is already established. (3) Stage 4 lung cancer Qualifiers: Laterality: left Qualified Code(s): C34.92 - Malignant neoplasm of unspecified part of left bronchus or lung Is this a current diagnosis for this admission?: Yes Plan: He is scheduled for cycle #2 of chemo in 2 days. But, this will be delayed. It is up to the patient as to if he would like to continue treatment or not. He is considering this. (4) BPH (benign prostatic hyperplasia) Qualifiers: Lower urinary tract symptom presence: symptoms present Lower urinary tract symptom detail: urinary hesitancy Qualified Code(s): N40.1 - Benign prostatic hyperplasia with lower urinary tract symptoms; R39.11 - Hesitancy of micturition Is this a current diagnosis for this admission?: Yes Plan: He will keep Layne in as outpatient. He has HHN set up to help with this. - Plan Summary Plan Summary: I will continue to follow him with you, but once patient is feeling up to it, I agree with discharge.
[2020-01-14] MEDS: OXYCODONE-ACETAMINOPHEN 5-325 MG TABLET PO PRN (19:59)
[2020-01-14] MEDS ORDERED: RINGERS SOLUTION,LACTATED 1,000 ML IV ONE (21:15)
[2020-01-15] MEDS: LEVALBUTEROL HCL NEB 1.25 MG/3 ML AMPUL NEB SCH ×4 (02:03→20:42)
[2020-01-15] MEDS: METRONIDAZOLE 500 MG TABLET PO SCH ×2 (06:48→21:43)
[2020-01-15] MEDS: LEVOTHYROXINE SODIUM 0.15 MG TABLET PO SCH (06:48)
[2020-01-15 07:07] LABS: HEMOGLOBIN 10.5 g/dL (13.5-17.0); MEAN CORPUSCULAR HEMOGLOBIN 29.2 pg (27.0-33.4); MEAN CORPUSCULAR HGB CONC 32.8 g/dL (32.0-36.0); MEAN CORPUSCULAR VOLUME 89 fl (80-97); PLATELET COUNT 301 10^3/uL (150-450); RED CELL DISTRIBUTION WIDTH 13.9 % (11.5-14.0); WHITE BLOOD COUNT 8.3 10^3/uL (4.0-10.5)
[2020-01-15 07:23] LABS: BLOOD UREA NITROGEN 12 mg/dL (7-20); CALCIUM 8.1 mg/dL (8.4-10.2); GLUCOSE 84 mg/dL (75-110); POTASSIUM 4.2 mmol/L (3.6-5.0)
[2020-01-15 07:29] LABS: CARBON DIOXIDE 38 mmol/L (22-30); CHLORIDE 97 mmol/L (98-107)
[2020-01-15 07:31] LABS: ABSOLUTE LYMPHOCYTES# (MANUAL) 0.3 10^3/uL (0.5-4.7); ABSOLUTE MONOCYTES # (MANUAL) 0.9 10^3/uL (0.1-1.4); ANISOCYTOSIS SLIGHT; BAND NEUTROPHILS % (MANUAL) 1 % (3-5); BASOPHILS % (MANUAL) 1 % (0-2); EOSINOPHILS % (MANUAL) 0 % (0-6); LYMPHOCYTES % (MANUAL) 4 % (13-45); METAMYELOCYTES % (MANUAL) 2 % (0-1); MONOCYTES % (MANUAL) 11 % (3-13); POLYCHROMASIA SLIGHT; SEGMENTED NEUTROPHILS % (MAN) 80 % (42-78); TOTAL CELLS COUNTED 100
[2020-01-15 07:32] LABS: MYELOCYTES % (MANUAL) 1 % (0); PLATELET COMMENT ADEQUATE
[2020-01-15 07:33] LABS: ANION GAP 1 (5-19)
[2020-01-15] MEDS: NORMAL SALINE 1000 ML 1,000 ML IV PRN ×2 (08:40→17:13)
--- NOTE | 2020-01-15 08:57 | PDOC PROGRESS REPORT ---
Subjective Progress Note for:: 01/15/20 Subjective:: Hypotensive overnight, feeling weak this morning Reason For Visit: HYPOXIA, MALIGNANT EFFUSION Physical Exam Vital Signs: Temp Pulse Resp BP Pulse Ox 97.5 F 102 H 15 96/62 L 98 01/15/20 07:51 01/15/20 08:12 01/15/20 08:12 01/15/20 07:51 01/15/20 08:12 Intake & Output 01/14/20 01/15/20 01/16/20 06:59 06:59 06:59 Intake Total 460 2640 Output Total 2080 3450 Balance -1620 -810 Weight 84.4 kg 86 kg General appearance: PRESENT: no acute distress, well-developed, well-nourished Head exam: PRESENT: atraumatic, normocephalic Eye exam: PRESENT: conjunctiva pink, EOMI, PERRLA. ABSENT: scleral icterus Ear exam: PRESENT: normal external ear exam Mouth exam: PRESENT: moist, tongue midline Neck exam: ABSENT: carotid bruit, JVD, lymphadenopathy, thyromegaly Respiratory exam: PRESENT: clear to auscultation gilma. ABSENT: rales, rhonchi, wheezes Cardiovascular exam: PRESENT: RRR. ABSENT: diastolic murmur, rubs, systolic murmur Pulses: PRESENT: normal dorsalis pedis pul Vascular exam: PRESENT: normal capillary refill GI/Abdominal exam: PRESENT: normal bowel sounds, soft. ABSENT: distended, guarding, mass, organolmegaly, rebound, tenderness Rectal exam: PRESENT: deferred Extremities exam: PRESENT: full ROM. ABSENT: calf tenderness, clubbing, pedal edema Neurological exam: PRESENT: alert, awake, oriented to person, oriented to place, oriented to time, oriented to situation, CN II-XII grossly intact. ABSENT: motor sensory deficit Psychiatric exam: PRESENT: appropriate affect, normal mood. ABSENT: homicidal ideation, suicidal ideation Skin exam: PRESENT: dry, intact, warm. ABSENT: cyanosis, rash Results Laboratory Results: 01/15/20 06:09 01/15/20 06:09 01/15/20 01/15/20 06:09 06:09 WBC 8.3 RBC 3.60 L Hgb 10.5 L Hct 32.0 L MCV 89 MCH 29.2 MCHC 32.8 RDW 13.9 Plt Count 301 Seg Neutrophils % Not Reportable Sodium 135.9 L Potassium 4.2 Chloride 97 L Carbon Dioxide 38 H Anion Gap 1 L BUN 12 Creatinine 0.60 Est GFR ( Amer) > 60 Glucose 84 Calcium 8.1 L Magnesium 2.2 01/13/20 03:40 Troponin I < 0.012 NT-Pro-B Natriuret Pep 136 H Impressions: Chest/Abdomen CTA 01/13/20 04:43 IMPRESSION: 1. Complete collapse of the left lung, secondary to obstruction of the left upper and lower lobe bronchi in the hilar region. The left upper lobe bronchus was also obstructed on the prior study, secondary to the known central malignancy. The left lower lobe bronchial obstruction is new compared to the prior study and may be related to be obstructing malignancy or mucous plugging. 2. Moderately sized left pleural effusion which is increased in size compared to the prior study. A trace right pleural effusion is also now visualized. 3. Interval enlargement of left axillary lymph nodes, suspicious for metastatic disease. 4. Large right posterior chest wall mass again demonstrated, with erosion of the right posterior 6th rib. The soft tissue mass is slightly decreased in size. 5. No evidence of pulmonary embolism. Chest X-Ray 01/14/20 06:35 IMPRESSION: Status post placement of a left-sided PleurX catheter. There is re- demonstration of left-sided pneumothorax that is unchanged. The increased diffuse opacity of the left hemithorax, the blunting of the left costophrenic oneil lcus, the obscuration of the left hemidiaphragm, and the asymmetric left-sided volume loss are unchanged. Assessment & Plan - Diagnosis (1) Malignant pleural effusion Is this a current diagnosis for this admission?: Yes Plan: Gave recommendation for removal of fluid of about 400 cc every other day. (2) Stage 4 lung cancer Qualifiers: Laterality: left Qualified Code(s): C34.92 - Malignant neoplasm of unspecified part of left bronchus or lung Is this a current diagnosis for this admission?: Yes Plan: Hopeful therapy to continue as an outpatient - Time Time Spent with patient: 35 or more minutes
[2020-01-15] MEDS: FAMOTIDINE 20 MG TABLET PO SCH ×2 (10:26→21:43)
[2020-01-15] MEDS: TAMSULOSIN HCL 0.4 MG CAP.SR.24H PO SCH (10:26)
[2020-01-15] MEDS: SENNOSIDES/DOCUSATE 8.6-50 MG 1 EACH TABLET PO SCH (10:26)
[2020-01-15] MEDS: PSYLLIUM SEED-SF 5.85 GM PACKET PO SCH ×2 (10:26→17:38)
[2020-01-15] MEDS: ENOXAPARIN SODIUM INJ 40 MG/0.4 ML DISP.SYRIN SUBCUT SCH (10:26)
--- NOTE | 2020-01-15 10:30 | PDOC PROGRESS REPORT ---
Subjective Progress Note for:: 01/15/20 Subjective:: Patient is resting. Currently receiving a bed bath. He did have a hypotensive episode last night. His blood pressures are on the low side today as well. Reason For Visit: HYPOXIA, MALIGNANT EFFUSION Physical Exam Vital Signs: Temp Pulse Resp BP Pulse Ox 97.5 F 102 H 15 96/62 L 98 01/15/20 07:51 01/15/20 08:12 01/15/20 08:12 01/15/20 07:51 01/15/20 08:12 Intake & Output 01/14/20 01/15/20 01/16/20 06:59 06:59 06:59 Intake Total 460 2640 Output Total 2080 3450 Balance -1620 -810 Weight 84.4 kg 86 kg General appearance: PRESENT: cooperative, mild distress, well-developed Head exam: PRESENT: atraumatic, normocephalic Mouth exam: PRESENT: moist, tongue midline Respiratory exam: PRESENT: decreased breath sounds, rales, symmetrical, unlabored. ABSENT: rhonchi, tachypnea, wheezes Cardiovascular exam: PRESENT: RRR, +S1, +S2. ABSENT: diastolic murmur, irregular rhythm, systolic murmur GI/Abdominal exam: PRESENT: normal bowel sounds, soft. ABSENT: distended, guarding, tenderness Rectal exam: PRESENT: deferred Gentrourinary exam: PRESENT: indwelling catheter Extremities exam: ABSENT: pedal edema Neurological exam: PRESENT: alert, awake, oriented to person, oriented to place, oriented to time, oriented to situation, CN II-XII grossly intact Psychiatric exam: PRESENT: flat affect. ABSENT: agitated, anxious Focused psych exam: ABSENT: delusional, paranoid, restlessness Skin exam: PRESENT: dry, warm. ABSENT: rash Results Laboratory Results: 01/15/20 06:09 01/15/20 06:09 01/15/20 01/15/20 06:09 06:09 WBC 8.3 RBC 3.60 L Hgb 10.5 L Hct 32.0 L MCV 89 MCH 29.2 MCHC 32.8 RDW 13.9 Plt Count 301 Seg Neutrophils % Not Reportable Sodium 135.9 L Potassium 4.2 Chloride 97 L Carbon Dioxide 38 H Anion Gap 1 L BUN 12 Creatinine 0.60 Est GFR ( Amer) > 60 Glucose 84 Calcium 8.1 L Magnesium 2.2 01/13/20 03:40 Troponin I < 0.012 NT-Pro-B Natriuret Pep 136 H Impressions: Chest/Abdomen CTA 01/13/20 04:43 IMPRESSION: 1. Complete collapse of the left lung, secondary to obstruction of the left upper and lower lobe bronchi in the hilar region. The left upper lobe bronchus was also obstructed on the prior study, secondary to the known central malignancy. The left lower lobe bronchial obstruction is new compared to the prior study and may be related to be obstructing malignancy or mucous plugging. 2. Moderately sized left pleural effusion which is increased in size compared to the prior study. A trace right pleural effusion is also now visualized. 3. Interval enlargement of left axillary lymph nodes, suspicious for metastatic disease. 4. Large right posterior chest wall mass again demonstrated, with erosion of the right posterior 6th rib. The soft tissue mass is slightly decreased in size. 5. No evidence of pulmonary embolism. Chest X-Ray 01/14/20 06:35 IMPRESSION: Status post placement of a left-sided PleurX catheter. There is re- demonstration of left-sided pneumothorax that is unchanged. The increased diffuse opacity of the left hemithorax, the blunting of the left costophrenic sulcus, the obscuration of the left hemidiaphragm, and the asymmetric left-sided volume loss are unchanged. Assessment and Plan - Diagnosis (1) Malignant pleural effusion Is this a current diagnosis for this admission?: Yes Plan: On admission, CT of the chest shows no PE but does show large right lung mass as well as in left lung with significant amount of pleural effusion in the left side [likely malignant] leading to almost complete left lung collapse. This is likely the source of patient's respiratory distress. 01/14/2020 Pleurx catheter was placed yesterday by surgery. So far the Pleurx catheter has drained with 3 L of viscous fluid. Patient will be going home with the Pleurx catheter. I have discussed with surgery who recommends that patient use the Pleurx catheter to drain as frequently as whenever he starts to feel short of breath. Chest x-ray today shows improved aeration of the lung. I have instructed patient to continue to use incentive spirometer to help with lung recruitment and reinflation following compressive atelectasis. We will monitor patient today and monitor his vitals. I will also have patient evaluated by physical therapy. Discharge planning consulted for snf to help with Pleurx management. 01/15/2020 [address] catheter is in place. Patient's is continuing her education about t he catheter. Dr. Kenney has also made suggestions about managing the output. Home health will continue to educate the patient's about the Pleurx catheter as well. (2) Acute and chronic respiratory failure with hypoxia Is this a current diagnosis for this admission?: Yes Plan: SPO2 currently improved with nasal cannula. We will continue to monitor. Patient was started on home oxygen for his lung cancer in the past few months. We will continue to monitor. Hypoxia now complicated by malignant effusion on left lung collapse. 01/15/2020 Stable on nasal cannula. (3) Pneumothorax, left Is this a current diagnosis for this admission?: Yes Plan: Left apical pneumothorax is unchanged on chest x-ray today. Discussed with Dr. Frederick who states that this is an expected occurrence with placement and manipulation of the Pleurx catheter and no intervention is needed further. 01/15/2020 No further x-rays as noted above (4) COPD exacerbation Is this a current diagnosis for this admission?: Yes Plan: Received steroids and breathing treatment in the ER. Currently still not wheezing. I will continue patient on frequent nebulizer treatments but I will hold off on steroids for now except if wheezing recurs and worsens. I believe most of his respiratory distress is from his pleural effusion and left lung collapse. 01/15/2020 Continue current treatment regimen (5) Acute urinary retention Is this a current diagnosis for this admission?: Yes Plan: Has indwelling Layne. Continue tamsulosin. 01/15/2020 Oncology has requested that the catheter remain in place at discharge. Continue tamsulosin as this will likely help when the catheter is removed. (6) Colitis Is this a current diagnosis for this admission?: Yes Plan: Patient recently treated for colitis and prescribed ciprofloxacin and Flagyl. I will continue ciprofloxacin and Flagyl for 1 more day as prescribed. Patient seems to have improved significantly from this standpoint. 01/15/2020 I am extending the ciprofloxacin and Flagyl for 4 more days at this time. We will reevaluate daily. 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 Started on Keytruda earlier this month. Oncology will be following. 01/15/2020 Patient was supposed to receive second Keytruda treatment this week. Currently on hold. It may be appropriate for hospice referral at this time. (8) Hypotension Qualifiers: Hypotension type: unspecified hypotension type Qualified Code(s): I95.9 - Hypotension, unspecified Is this a current diagnosis for this admission?: Yes Plan: 01/15/2020 Blood pressure has been low. I am starting midodrine. This could be related to the shifting of the effusion. It could also be related to the patient's general decline. Will reassess tomorrow. (9) Hypothyroidism Qualifiers: Hypothyroidism type: other Qualified Code(s): E03.8 - Other specified hypothyroidism Is this a current diagnosis for this admission?: Yes Plan: 01/15/2020 Continue current dose of levothyroxine - Time Time Spent with patient: 15-24 minutes Medications reviewed and adjusted accordingly: Yes Anticipated discharge: Home with Homehealth
[2020-01-15 14:48] LABS: PATH REVIEW PATHOLOGIST REVIEWED
[2020-01-15] MEDS: OXYCODONE-ACETAMINOPHEN 5-325 MG TABLET PO PRN ×2 (17:11→23:18)
[2020-01-15] MEDS: CIPROFLOXACIN HCL 500 MG TABLET PO SCH (21:43)
[2020-01-15] MEDS: ACETAZOLAMIDE 250 MG TABLET PO SCH (21:44)
[2020-01-16] MEDS: LEVALBUTEROL HCL NEB 1.25 MG/3 ML AMPUL NEB SCH ×4 (02:00→21:10)
[2020-01-16] MEDS: NORMAL SALINE 1000 ML 1,000 ML IV PRN ×4 (02:00→19:32)
[2020-01-16] MEDS ORDERED: NORMAL SALINE 1000 ML 1,000 ML IV ONE (03:45)
[2020-01-16] MEDS: LEVOTHYROXINE SODIUM 0.15 MG TABLET PO SCH (05:03)
[2020-01-16] MEDS: METRONIDAZOLE 500 MG TABLET PO SCH ×3 (05:03→21:45)
--- NOTE | 2020-01-16 08:20 | PDOC PROGRESS REPORT ---
Subjective Progress Note for:: 01/16/20 Subjective:: Still very weak, got up in a chair with assistance yesterday, ate a little bit more yesterday. Had 400 cc out from Pleurx catheter yesterday. Today had a long discussion with about current status of disease and extensive care. Discussed hospice again with her. Spent about 45 months in discussion Reason For Visit: HYPOXIA, MALIGNANT EFFUSION Physical Exam Vital Signs: Temp Pulse Resp BP Pulse Ox 97.8 F 88 18 87/62 L 94 01/16/20 03:16 01/16/20 07:00 01/16/20 03:16 01/16/20 03:16 01/16/20 03:16 Intake & Output 01/15/20 01/16/20 01/17/20 06:59 06:59 06:59 Intake Total 2640 2420 Output Total 3450 3575 Balance -810 -1155 Weight 86 kg 84.6 kg General appearance: PRESENT: no acute distress, well-developed, well-nourished Head exam: PRESENT: atraumatic, normocephalic Eye exam: PRESENT: conjunctiva pink, EOMI, PERRLA. ABSENT: scleral icterus Ear exam: PRESENT: normal external ear exam Mouth exam: PRESENT: moist, tongue midline Neck exam: ABSENT: carotid bruit, JVD, lymphadenopathy, thyromegaly Respiratory exam: PRESENT: clear to auscultation gilma. ABSENT: rales, rhonchi, wheezes Cardiovascular exam: PRESENT: RRR. ABSENT: diastolic murmur, rubs, systolic murmur Pulses: PRESENT: normal dorsalis pedis pul Vascular exam: PRESENT: normal capillary refill GI/Abdominal exam: PRESENT: normal bowel sounds, soft. ABSENT: distended, guarding, mass, organolmegaly, rebound, tenderness Rectal exam: PRESENT: deferred Extremities exam: PRESENT: full ROM. ABSENT: calf tenderness, clubbing, pedal edema Neurological exam: PRESENT: alert, awake, oriented to person, oriented to place, oriented to time, oriented to situation, CN II-XII grossly intact. ABSENT: motor sensory deficit Psychiatric exam: PRESENT: appropriate affect, normal mood. ABSENT: homicidal ideation, suicidal ideation Skin exam: PRESENT: dry, intact, warm. ABSENT: cyanosis, rash Results Laboratory Results: 01/15/20 06:09 01/15/20 06:09 01/13/20 03:40 Troponin I < 0.012 NT-Pro-B Natriuret Pep 136 H Impressions: Chest/Abdomen CTA 01/13/20 04:43 IMPRESSION: 1. Complete collapse of the left lung, secondary to obstruction of the left upper and lower lobe bronchi in the hilar region. The left upper lobe bronchus was also obstructed on the prior study, secondary to the known central malignancy. The left lower lobe bronchial obstruction is new compared to the prior study and may be related to be obstructing malignancy or mucous plugging. 2. Moderately sized left pleural effusion which is increased in size compared to the prior study. A trace right pleural effusion is also now visualized. 3. Interval enlargement of left axillary lymph nodes, suspicious for metastatic disease. 4. Large right posterior chest wall mass again demonstrated, with erosion of the right posterior 6th rib. The soft tissue mass is slightly decreased in size. 5. No evidence of pulmonary embolism. Chest X-Ray 01/14/20 06:35 IMPRESSION: Status post placement of a left-sided PleurX catheter. There is re- demonstration of left-sided pneumothorax that is unchanged. The increased diffuse opacity of the left hemithorax, the blunting of the left costophrenic sulcus, the obscuration of the left hemidiaphragm, and the asymmetric left-sided volume loss are unchanged. Assessment & Plan - Diagnosis (1) Malignant pleural effusion Is this a current diagnosis for this admission?: Yes Plan: Continue with fluid removal every other day for 400cc. (2) Stage 4 lung cancer Qualifiers: Laterality: left Qualified Code(s): C34.92 - Malignant neoplasm of unspecified part of left bronchus or lung Is this a current diagnosis for this admission?: Yes Plan: Holding on further chemotherapy for now, continue supportive care. - Time Time Spent with patient: 25-34 minutes
[2020-01-16] MEDS: FENTANYL 25 MCG/HR PATCH.TD72 TD SCH (10:33)
[2020-01-16] MEDS: ENOXAPARIN SODIUM INJ 40 MG/0.4 ML DISP.SYRIN SUBCUT SCH (10:34)
[2020-01-16] MEDS: SENNOSIDES/DOCUSATE 8.6-50 MG 1 EACH TABLET PO SCH (10:35)
[2020-01-16] MEDS: MIDODRINE HCL 5 MG TABLET PO SCH ×3 (10:35→17:05)
[2020-01-16] MEDS: PSYLLIUM SEED-SF 5.85 GM PACKET PO SCH ×2 (10:35→17:06)
[2020-01-16] MEDS: FAMOTIDINE 20 MG TABLET PO SCH ×2 (10:35→21:45)
[2020-01-16] MEDS: TAMSULOSIN HCL 0.4 MG CAP.SR.24H PO SCH (10:35)
[2020-01-16] MEDS: CIPROFLOXACIN HCL 500 MG TABLET PO SCH ×2 (10:36→21:45)
[2020-01-16] MEDS: ACETAZOLAMIDE 250 MG TABLET PO SCH (11:27)
--- NOTE | 2020-01-16 11:35 | PDOC PROGRESS REPORT ---
Subjective Progress Note for:: 01/16/20 Subjective:: The patient's had some questions about medications. In addition I spoke with Dr. Kenney and given the patient's weakness and still a possibility of further treatment we are going to ask physical therapy to assess the patient. Reason For Visit: HYPOXIA, MALIGNANT EFFUSION Physical Exam Vital Signs: Temp Pulse Resp BP Pulse Ox 97.6 F 89 16 111/76 99 01/16/20 08:27 01/16/20 09:35 01/16/20 09:35 01/16/20 08:27 01/16/20 09:35 Intake & Output 01/15/20 01/16/20 01/17/20 06:59 06:59 06:59 Intake Total 2640 2420 1000 Output Total 3450 3575 Balance -810 -1155 1000 Weight 86 kg 84.6 kg General appearance: PRESENT: no acute distress Ear exam: PRESENT: normal external ear exam. ABSENT: bleeding, drainage Respiratory exam: PRESENT: decreased breath sounds - At bases, symmetrical, unlabored. ABSENT: tachypnea, wheezes Cardiovascular exam: PRESENT: RRR GI/Abdominal exam: PRESENT: normal bowel sounds, soft. ABSENT: tenderness Neurological exam: PRESENT: alert, awake - Patient is sitting in the chair. He did work with physical therapy this morning. Psychiatric exam: PRESENT: flat affect. ABSENT: agitated, anxious Results Laboratory Results: 01/15/20 06:09 01/15/20 06:09 01/13/20 03:40 Troponin I < 0.012 NT-Pro-B Natriuret Pep 136 H Impressions: Chest/Abdomen CTA 01/13/20 04:43 IMPRESSION: 1. Complete collapse of the left lung, secondary to obstruction of the left upper and lower lobe bronchi in the hilar region. The left upper lobe bronchus was also obstructed on the prior study, secondary to the known central malignancy. The left lower lobe bronchial obstruction is new compared to the prior study and may be related to be obstructing malignancy or mucous plugging. 2. Moderately sized left pleural effusion which is increased in size compared to the prior study. A trace right pleural effusion is also now visualized. 3. Interval enlargement of left axillary lymph nodes, suspicious for metastatic disease. 4. Large right posterior chest wall mass again demonstrated, with erosion of the right posterior 6th rib. The soft tissue mass is slightly decreased in size. 5. No evidence of pulmonary embolism. Chest X-Ray 01/14/20 06:35 IMPRESSION: Status post placement of a left-sided PleurX catheter. There is re- demonstration of left-sided pneumothorax that is unchanged. The increased diffuse opacity of the left hemithorax, the blunting of the left costophrenic sulcus, the obscuration of the left hemidiaphragm, and the asymmetric left-sided volume loss are unchanged. Assessment and Plan - Diagnosis (1) Malignant pleural effusion Is this a current diagnosis for this admission?: Yes Plan: On admission, CT of the chest shows no PE but does show large right lung mass as well as in left lung with significant amount of pleural effusion in the left side [likely malignant] leading to almost complete left lung collapse. This is likely the source of patient's respiratory distress. 01/14/2020 Pleurx catheter was placed yesterday by surgery. So far the Pleurx catheter has drained with 3 L of viscous fluid. Patient will be going home with the Pleurx catheter. I have discussed with surgery who recommends that patient use the Pleurx catheter to drain as frequently as whenever he starts to feel short of breath. Chest x-ray today shows improved aeration of the lung. I have instructed patient to continue to use incentive spirometer to help with lung recruitment and reinflation following compressive atelectasis. We will monitor patient today and monitor his vitals. I will also have patient evaluated by physical therapy. Discharge planning consulted for assisted to help with Pleurx management. 01/15/2020 Ple[address] catheter is in place. Patient's is continuing her education about the catheter. Dr. Kenney has also made suggestions about managing the output. Home health will continue to educate the patient's about the Pleurx catheter as well. 01/16/2020 The patient's in fact manipulated the Pleurx catheter today to drain 400 mL of fluid. She is getting more comfortable and is surprised that it is not as difficult as she thought it was want to be. Supplies for the Pleurx catheter have been ordered as well. (2) Acute and chronic respiratory failure with hypoxia Is this a current diagnosis for this admission?: Yes Plan: SPO2 currently improved with nasal cannula. We will continue to monitor. Patient was started on home oxygen for his lung cancer in the past few months. We will continue to monitor. Hypoxia now complicated by malignant effusion on left lung collapse. 01/15/2020 Stable on nasal cannula. 01/16/2020 Continue nasal cannula. Due to the heavy tumor burden the patient will likely need to stay on oxygen. (3) Pneumothorax, left Is this a current diagnosis for this admission?: Yes Plan: Left apical pneumothorax is unchanged on chest x-ray today. Discussed with Dr. Frederick who states that this is an expected occurrence with placement and manipulation of the Pleurx catheter and no intervention is needed further. 01/15/2020 No further x-rays as noted above 01/16/2020 As above. An x-ray would be required should the patient have a drastic change in his condition. (4) COPD exacerbation Is this a current diagnosis for this admission?: Yes Plan: Received steroids and breathing treatment in the ER. Currently still not wheezing. I will continue patient on frequent nebulizer treatments but I will hold off on steroids for now except if wheezing recurs and worsens. I believe most of his respiratory distress is from his pleural effusion and left lung collapse. 01/15/2020 Continue current treatment regimen 01/16/2020 Respiratory status is improved with the thoracentesis and Pleurx drain. Underlying COPD would appear to be stable. (5) Acute urinary retention Is this a current diagnosis for this admission?: Yes Plan: Has indwelling Layne. Continue tamsulosin. 01/15/2020 Oncology has requested that the catheter remain in place at discharge. Continue tamsulosin as this will likely help when the catheter is removed. 01/16/2020 The patient's appointment with his urologist need to be postponed due to his hospitalization. The risk of sending patient home with the catheter is possible infection. The risk of removing the catheter is acute urinary obstruction. All things being considered should be able to get the patient a follow-up appointment with the urologist. It may be in the [facility] and not [place]. The patient's had no problem transporting the patient there if it meant appropriate care for his urinary retention. (6) Colitis Is this a current diagnosis for this admission?: Yes Plan: Patient recently treated for colitis and prescribed ciprofloxacin and Flagyl. I will continue ciprofloxacin and Flagyl for 1 more day as prescribed. Patient seems to have improved significantly from this standpoint. 01/15/2020 I am extending the ciprofloxacin and Flagyl for 4 more days at this time. We will reevaluate daily. 01/16/2020 Complete antibiotic therapy as ordered. Patient is improved. 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 Started on Keytruda earlier this month. Oncology will be following. 01/15/2020 Patient was supposed to receive second Keytruda treatment this week. Currently on hold. It may be appropriate for hospice referral at this time. 01/16/2020 Dr. Kenney and I spoke earlier. He stated that he did bring up the topic of hospice. Dr. Granado, who is the patient's primary oncologist, is on-call tomorrow and will likely continue to pursue this avenue. (8) Hypotension Qualifiers: Hypotension type: unspecified hypotension type Qualified Code(s): I95.9 - Hypotension, unspecified Is this a current diagnosis for this admission?: Yes Plan: 01/15/2020 Blood pressure has been low. I am starting midodrine. This could be related to the shifting of the effusion. It could also be related to the patient's general decline. Will reassess tomorrow. 01/16/2020 The midodrine is having minimal effect. Consider increasing the dose or settling for hypotension if the patient decides to utilize hospice services. (9) Hypothyroidism Qualifiers: Hypothyroidism type: other Qualified Code(s): E03.8 - Other specified hypothyroidism Is this a current diagnosis for this admission?: Yes Plan: 01/15/2020 Continue current dose of levothyroxine 01/16/2020 As above - Time Time Spent with patient: 15-24 minutes Medications reviewed and adjusted accordingly: Yes Anticipated discharge: Home with Homehealth
[2020-01-17] MEDS: NORMAL SALINE 1000 ML 1,000 ML IV PRN ×2 (01:07→07:16)
[2020-01-17] MEDS: LEVALBUTEROL HCL NEB 1.25 MG/3 ML AMPUL NEB SCH ×3 (02:10→14:10)
[2020-01-17] MEDS: LEVOTHYROXINE SODIUM 0.15 MG TABLET PO SCH (05:24)
[2020-01-17] MEDS: METRONIDAZOLE 500 MG TABLET PO SCH ×2 (05:24→13:30)
[2020-01-17] MEDS: PSYLLIUM SEED-SF 5.85 GM PACKET PO SCH (10:31)
[2020-01-17] MEDS: ENOXAPARIN SODIUM INJ 40 MG/0.4 ML DISP.SYRIN SUBCUT SCH (10:31)
[2020-01-17] MEDS: FAMOTIDINE 20 MG TABLET PO SCH (10:32)
[2020-01-17] MEDS: CIPROFLOXACIN HCL 500 MG TABLET PO SCH (10:32)
[2020-01-17] MEDS: MIDODRINE HCL 5 MG TABLET PO SCH ×2 (10:32→13:30)
[2020-01-17] MEDS: TAMSULOSIN HCL 0.4 MG CAP.SR.24H PO SCH (10:32)
[2020-01-17] MEDS: SENNOSIDES/DOCUSATE 8.6-50 MG 1 EACH TABLET PO SCH (10:32)
--- NOTE | 2020-01-17 10:45 | PDOC PROGRESS REPORT ---
Subjective Progress Note for:: 01/17/20 Subjective:: Patient and state that he is doing much better. He would like to go home today. His breathing has improved and he is eating better. Reason For Visit: HYPOXIA, MALIGNANT EFFUSION Physical Exam Vital Signs: Temp Pulse Resp BP Pulse Ox 97.6 F 89 16 92/60 L 98 01/17/20 08:04 01/17/20 08:04 01/17/20 08:04 01/17/20 08:04 01/17/20 08:04 Intake & Output 01/16/20 01/17/20 01/18/20 06:59 06:59 06:59 Intake Total 2420 5882 1000 Output Total 3575 4400 Balance -1155 1482 1000 Weight 84.6 kg 88.5 kg General appearance: PRESENT: no acute distress Head exam: PRESENT: normocephalic Respiratory exam: PRESENT: unlabored Neurological exam: PRESENT: alert, awake Psychiatric exam: PRESENT: appropriate affect Skin exam: PRESENT: normal color Results Laboratory Results: 01/15/20 06:09 01/15/20 06:09 01/13/20 03:40 Troponin I < 0.012 NT-Pro-B Natriuret Pep 136 H Impressions: Chest/Abdomen CTA 01/13/20 04:43 IMPRESSION: 1. Complete collapse of the left lung, secondary to obstruction of the left upper and lower lobe bronchi in the hilar region. The left upper lobe bronchus was also obstructed on the prior study, secondary to the known central malignancy. The left lower lobe bronchial obstruction is new compared to the prior study and may be related to be obstructing malignancy or mucous plugging. 2. Moderately sized left pleural effusion which is increased in size compared to the prior study. A trace right pleural effusion is also now visualized. 3. Interval enlargement of left axillary lymph nodes, suspicious for metastatic disease. 4. Large right posterior chest wall mass again demonstrated, with erosion of the right posterior 6th rib. The soft tissue mass is slightly decreased in size. 5. No evidence of pulmonary embolism. Chest X-Ray 01/14/20 06:35 IMPRESSION: Status post placement of a left-sided PleurX catheter. There is re- demonstration of left-sided pneumothorax that is unchanged. The increased diffuse opacity of the left hemithorax, the blunting of the left costophrenic sulcus, the obscuration of the left hemidiaphragm, and the asymmetric left-sided volume loss are unchanged. Assessment & Plan - Diagnosis (1) Acute and chronic respiratory failure with hypoxia Is this a current diagnosis for this admission?: Yes (2) Pleural effusion Is this a current diagnosis for this admission?: Yes (3) Stage 4 lung cancer Qualifiers: Laterality: left Qualified Code(s): C34.92 - Malignant neoplasm of unspecified part of left bronchus or lung Is this a current diagnosis for this admission?: Yes Plan: I have a long discussion with them again today. Patient states that he is too afraid to try another chemo dose at this time. We discussed Hospice at home to help him get stronger. They both agree. I explained that in the future, he may still have chemo if he improves and comes off Hospice. However, most people do much better with Hospice and continue these services to help manage the cancer at home without coming back to the hospital. I will arrange for Hospice visit tomorrow morning. They will arrange for his medications, DME and oxygen. He will go home with the Layne and Pleurex. He has N altready in place until Hospice starts. (4) BPH (benign prostatic hyperplasia) Qualifiers: Lower urinary tract symptom presence: symptoms present Lower urinary tract symptom detail: urinary hesitancy Qualified Code(s): N40.1 - Benign prostatic hyperplasia with lower urinary tract symptoms; R39.11 - Hesitancy of micturition Is this a current diagnosis for this admission?: Yes - Time Time Spent with patient: 15-24 minutes
--- NOTE | 2020-01-17 13:24 | PDOC DISCHARGE SUMMARY ---
Impression - Admit/DC Date/PCP Admission Date/Primary Care Provider: 01/13/20 08:22 ELA EMERSON MD Discharge Date: 01/17/20 - Discharge Diagnosis (1) Malignant pleural effusion Is this a current diagnosis for this admission?: Yes (2) Acute and chronic respiratory failure with hypoxia Is this a current diagnosis for this admission?: Yes (3) Pneumothorax, left Is this a current diagnosis for this admission?: Yes (4) COPD exacerbation Is this a current diagnosis for this admission?: Yes (5) Acute urinary retention Is this a current diagnosis for this admission?: Yes (6) Colitis Is this a current diagnosis for this admission?: Yes (7) Squamous cell carcinoma of lung, stage IV Is this a current diagnosis for this admission?: Yes (8) Hypotension Is this a current diagnosis for this admission?: Yes (9) Hypothyroidism Is this a current diagnosis for this admission?: Yes - Additional Information Resuscitation Status: Full Code Discharge Diet: As Tolerated Discharge Activity: Activity As Tolerated Referrals: ELA EMERSON MD [Primary Care Provider] - 01/27/20 9:15 am Prescriptions: Ciprofloxacin HCl [Cipro 500 mg Tablet] 500 mg PO Q12 3 Days #6 tablet Oxycodone HCl/Acetaminophen [Percocet 5-325 mg Tablet] 1 tab PO Q6HP PRN 4 Days #10 tablet PRN Reason: Midodrine HCl [Proamatine 5 mg Tablet] 5 mg PO TID #45 tablet Home Medications: Tamsulosin HCl [Flomax] 1 cap PO DAILY 03/07/19 Morphine Sulfate [Ms Contin] 15 mg PO Q4HP PRN 12/20/19 Fentanyl [Duragesic 25 mcg/hr Transdermal Patch] 1 patch TOP Q3D 01/13/20 Levothyroxine Sodium [Euthyrox] 175 mcg PO Q6AM 01/13/20 Metoclopramide HCl 5 mg PO QIDP PRN 01/13/20 Sennosides/Docusate Sodium [Senna-S 8.6-50 mg Tablet] 1 each PO BID 01/13/20 Ciprofloxacin HCl [Cipro 500 mg Tablet] 500 mg PO Q12 3 Days #6 tablet 01/17/20 Fentanyl [Duragesic 25 mcg/hr Transdermal Patch] 1 each TD Q3DAYS patch.[id number] 01/17/20 Levothyroxine Sodium [Synthroid 0.15 mg Tablet] 0.15 mg PO Q6AM tablet 01/17/20 Midodrine HCl [Proamatine 5 mg Tablet] 5 mg PO TID #45 tablet 01/17/20 Oxycodone HCl/Acetaminophen [Percocet 5-325 mg Tablet] 1 tab PO Q6HP PRN 4 Days #10 tablet 01/17/20 Psyllium Seed [Metamucil-Sf Powder 5.85 gm Packet] 1 packet PO BID packet 01/17/20 Sennosides/Docusate 8.6-50 mg [Senna Plus Tablet] 2 each PO DAILY tablet 01/17/20 Tamsulosin HCl [Flomax 0.4 mg Cap.sr] 0.4 mg PO DAILY cap.sr.24h 01/17/20 History of Present Illiness History of Present Illness: JOHN SANTOS JR is a 69 year old male with a history of stage IV squamous cell cancer of the lungs, COPD, chronic hypoxia secondary to lung cancer on 2 L nasal cannula, who presents to the hospital with with complaints of shortness of breath for the past few days but progressed yesterday night. Patient shortness of breath has increased beyond his baseline over the past 3 to 5 days and has especially worsened in the past 2 days. Overnight and this morning he was having a very difficult time breathing and as such decided to come to the hospital. He complains of cough but without significant sputum production. He occasionally has chest cramps but none currently. Of note he was recently admitted to the hospital and treated for colitis and discharged on 01/05/2020 with prescriptions for antibiotics. In the ER, he was noted to be wheezing and given breathing treatments and some steroids. CT reveals significant pleural effusion of his left side. Hospital Course Hospital Course: (1) Malignant pleural effusion Is this a current diagnosis for this admission?: Yes Plan: On admission, CT of the chest shows no PE but does show large right lung mass as well as in left lung with significant amount of pleural effusion in the left side [likely malignant] leading to almost complete left lung collapse. This is likely the source of patient's respiratory distress. 01/14/2020 Pleurx catheter was placed yesterday by surgery. So far the Pleurx catheter has drained with 3 L of viscous fluid. Patient will be going home with the Pleurx catheter. I have discussed with surgery who recommends that patient use the Pleurx catheter to drain as frequently as whenever he starts to feel short of breath. Chest x-ray today shows improved aeration of the lung. I have instructed patient to continue to use incentive spirometer to help with lung recruitment and reinflation following compressive atelectasis. We will monitor patient today and monitor his vitals. I will also have patient evaluated by physical therapy. Discharge planning consulted for intermediate to help with Pleurx management. 01/15/[address] is in place. Patient's is continuing her education about the catheter. Dr. Kenney has also made suggestions about managing the output. Home health will continue to educate the patient's about the Pleurx catheter as well. 01/16/2020 The patient's in fact manipulated the Pleurx catheter today to drain 400 mL of fluid. She is getting more comfortable and is surprised that it is not as difficult as she thought it was want to be. Supplies for the Pleurx catheter have been ordered as well. (2) Acute and chronic respiratory failure with hypoxia Is this a current diagnosis for this admission?: Yes Plan: SPO2 currently improved with nasal cannula. We will continue to monitor. Patient was started on home oxygen for his lung cancer in the past few months. We will continue to monitor. Hypoxia now complicated by malignant effusion on left lung collapse. 01/15/2020 Stable on nasal cannula. 01/16/2020 Continue nasal cannula. Due to the heavy tumor burden the patient will likely need to stay on oxygen. (3) Pneumothorax, left Is this a current diagnosis for this admission?: Yes Plan: Left apical pneumothorax is unchanged on chest x-ray today. Discussed with Dr. Frederick who states that this is an expected occurrence with placement and manipulation of the Pleurx catheter and no intervention is needed further. 01/15/2020 No further x-rays as noted above 01/16/2020 As above. An x-ray would be required should the patient have a drastic change in his condition. (4) COPD exacerbation Is this a current diagnosis for this admission?: Yes Plan: Received steroids and breathing treatment in the ER. Currently still not wheezing. I will continue patient on frequent nebulizer treatments but I will hold off on steroids for now except if wheezing recurs and worsens. I believe most of his respiratory distress is from his pleural effusion and left lung collapse. 01/15/2020 Continue current treatment regimen 01/16/2020 Respiratory status is improved with the thoracentesis and Pleurx drain. Underlying COPD would appear to be stable. (5) Acute urinary retention Is this a current diagnosis for this admission?: Yes Plan: Has indwelling Layne. Continue tamsulosin. 01/15/2020 Oncology has requested that the catheter remain in place at discharge. Continue tamsulosin as this will likely help when the catheter is removed. 01/16/2020 The patient's appointment with his urologist need to be postponed due to his hospitalization. The risk of sending patient home with the catheter is possible infection. The risk of removing the catheter is acute urinary obstruction. All things being considered should be able to get the patient a follow-up appointment with the urologist. It may be in the [facility] and not [place]. The patient's had no problem transporting the patient there if it meant appropriate care for his urinary retention. (6) Colitis Is this a current diagnosis for this admission?: Yes Plan: Patient recently treated for colitis and prescribed ciprofloxacin and Flagyl. I will continue ciprofloxacin and Flagyl for 1 more day as prescribed. Patient seems to have improved significantly from this standpoint. 01/15/2020 I am extending the ciprofloxacin and Flagyl for 4 more days at this time. We will reevaluate daily. 01/16/2020 Complete antibiotic therapy as ordered. Patient is improved. 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 Started on Keytruda earlier this month. Oncology will be following. 01/15/2020 Patient was supposed to receive second Keytruda treatment this week. Currently on hold. It may be appropriate for hospice referral at this time. 01/16/2020 Dr. Kenney and I spoke earlier. He stated that he did bring up the topic of hospice. Dr. Granado, who is the patient's primary oncologist, is on-call tomorrow and will likely continue to pursue this avenue. (8) Hypotension Qualifiers: Hypotension type: unspecified hypotension type Qualified Code(s): I95.9 - Hypotension, unspecified Is this a current diagnosis for this admission?: Yes Plan: 01/15/2020 Blood pressure has been low. I am starting midodrine. This could be related to the shifting of the effusion. It could also be related to the patient's general decline. Will reassess tomorrow. 01/16/2020 The midodrine is having minimal effect. Consider increasing the dose or settling for hypotension if the patient decides to utilize hospice services. (9) Hypothyroidism Qualifiers: Hypothyroidism type: other Qualified Code(s): E03.8 - Other specified hypothyroidism Is this a current diagnosis for this admission?: Yes Plan: 01/15/2020 Continue current dose of levothyroxine 01/16/2020 As above Physical Exam Vital Signs: Temp Pulse Resp BP Pulse Ox 97.6 F 85 20 103/75 97 01/17/20 11:58 01/17/20 11:58 01/17/20 11:58 01/17/20 11:58 01/17/20 11:58 Intake & Output 01/16/20 01/17/20 01/18/20 06:59 06:59 06:59 Intake Total 2420 5882 1000 Output Total 3575 4400 Balance -1155 1482 1000 Weight 84.6 kg 88.5 kg General appearance: PRESENT: no acute distress Respiratory exam: PRESENT: symmetrical, unlabored, other - Pleurx catheter left chest. ABSENT: prolonged expiratory phas, tachypnea Cardiovascular exam: PRESENT: RRR, +S1, +S2 GI/Abdominal exam: PRESENT: normal bowel sounds, soft. ABSENT: tenderness Neurological exam: PRESENT: alert, awake, oriented to person, oriented to place, oriented to time, oriented to situation Psychiatric exam: PRESENT: appropriate affect. ABSENT: agitated, anxious Results Laboratory Results: WBC 8.3 10^3/uL (4.0-10.5) 01/15/20 06:09 RBC 3.60 10^6/uL (4.35-5.55) L 01/15/20 06:09 Hgb 10.5 g/dL (13.5-17.0) L 01/15/20 06:09 Hct 32.0 % (37.9-51.0) L 01/15/20 06:09 MCV 89 fl (80-97) 01/15/20 06:09 MCH 29.2 pg (27.0-33.4) 01/15/20 06:09 MCHC 32.8 g/dL (32.0-36.0) 01/15/20 06:09 RDW 13.9 % (11.5-14.0) 01/15/20 06:09 Plt Count 301 10^3/uL (150-450) 01/15/20 06:09 Lymph % (Auto) Not Reportable 01/15/20 06:09 [place] % (Auto) Not Reportable 01/15/20 06:09 Eos % (Auto) Not Reportable 01/15/20 06:09 Baso % (Auto) Not Reportable 01/15/20 06:09 Absolute Neuts (auto) Not Reportable 01/15/20 06:09 Absolute Lymphs (auto) Not Reportable 01/15/20 06:09 Absolute Monos (auto) Not Reportable 01/15/20 06:09 Absolute Eos (auto) Not Reportable 01/15/20 06:09 Absolute Basos (auto) Not Reportable 01/15/20 06:09 Total Counted 100 01/15/20 06:09 Seg Neutrophils % Not Reportable 01/15/20 06:09 Seg Neuts % (Manual) 80 % (42-78) H 01/15/20 06:09 Band Neutrophils % 1 % (3-5) L 01/15/20 06:09 Lymphocytes % (Manual) 4 % (13-45) L 01/15/20 06:09 Monocytes % (Manual) 11 % (3-13) 01/15/20 06:09 Eosinophils % (Manual) 0 % (0-6) 01/15/20 06:09 Basophils % (Manual) 1 % (0-2) 01/15/20 06:09 Metamyelocytes % 2 % (0-1) H 01/15/20 06:09 Myelocytes % 1 % (0) H 01/15/20 06:09 Abs Neuts (Manual) 7.0 10^3/uL (1.7-8.2) 01/15/20 06:09 Abs Lymphs (Manual) 0.3 10^3/uL (0.5-4.7) L 01/15/20 06:09 Abs Monocytes (Manual) 0.9 10^3/uL (0.1-1.4) 01/15/20 06:09 Absolute Eos (Manual) 0.0 10^3/uL (0.0-0.6) 01/15/20 06:09 Abs Basophils (Manual) 0.1 10^3/uL (0.0-0.2) 01/15/20 06:09 Toxic Granulation 1+ 01/14/20 05:42 Platelet Comment ADEQUATE 01/15/20 06:09 Polychromasia SLIGHT 01/15/20 06:09 Poikilocytosis SLIGHT 01/14/20 05:42 Anisocytosis SLIGHT 01/15/20 06:09 Stomatocytes SLIGHT 01/14/20 05:42 PT 15.3 SEC (11.4-15.4) 01/13/20 09:31 INR 1.20 01/13/20 09:31 APTT 29.6 SEC (23.5-35.8) 01/14/20 05:42 Carbonic Acid 1.80 mmol/L (1.05-1.35) H 01/13/20 03:40 HCO3/H2CO3 Ratio 22:1 01/13/20 03:40 ABG pH 7.45 (7.35-7.45) 01/13/20 03:40 ABG pCO2 59.7 mmHg (35-45) H 01/13/20 03:40 ABG pO2 102.5 mmHg (80-100) H 01/13/20 03:40 ABG HCO3 40.6 mmol/L (20-24) H 01/13/20 03:40 ABG Total CO2 42.4 mmol/L (23-27) H 01/13/20 03:40 ABG O2 Saturation 97.8 % (94-98) 01/13/20 03:40 ABG Base Excess 14.4 mmol/L 01/13/20 03:40 FiO2 3L NC 01/13/20 03:40 Sodium 135.9 mmol/L (137-145) L 01/15/20 06:09 Potassium 4.2 mmol/L (3.6-5.0) 01/15/20 06:09 Chloride 97 mmol/L (98-107) L 01/15/20 06:09 Carbon Dioxide 38 mmol/L (22-30) H 01/15/20 06:09 Anion Gap 1 (5-19) L 01/15/20 06:09 BUN 12 mg/dL (7-20) 01/15/20 06:09 Creatinine 0.60 mg/dL (0.52-1.25) 01/15/20 06:09 Est GFR ( Amer) > 60 (>60) 01/15/20 06:09 Est GFR (MDRD) Non-Af > 60 (>60) 01/15/20 06:09 Glucose 84 mg/dL (75-110) 01/15/20 06:09 Lactic Acid 1.5 mmol/L (0.7-2.1) 01/13/20 09:31 Calcium 8.1 mg/dL (8.4-10.2) L 01/15/20 06:09 Magnesium 2.2 mg/dL (1.6-2.3) 01/15/20 06:09 Total Bilirubin 0.5 mg/dL (0.2-1.3) 01/13/20 03:40 Direct Bilirubin 0.0 mg/dL (0.0-0.4) 01/13/20 03:40 Neonat Total Bilirubin Not Reportable 01/13/20 03:40 Neonat Direct Bilirubin Not Reportable 01/13/20 03:40 Neonat Indirect Bili Not Reportable 01/13/20 03:40 AST 22 U/L (17-59) 01/13/20 03:40 ALT 10 U/L (<50) 01/13/20 03:40 Alkaline Phosphatase 102 U/L (38-126) 01/13/20 03:40 Troponin I < 0.012 ng/mL 01/13/20 03:40 NT-Pro-B Natriuret Pep 136 pg/mL (<125) H 01/13/20 03:40 Total Protein 6.2 g/dL (6.3-8.2) L 01/13/20 03:40 Albumin 2.7 g/dL (3.5-5.0) L 01/13/20 03:40 Urine Color YELLOW 01/13/20 08:57 Urine Appearance CLEAR 01/13/20 08:57 Urine pH 7.0 (5.0-9.0) 01/13/20 08:57 Ur Specific Susan 1.040 01/13/20 08:57 Urine Protein 30 mg/dL (NEGATIVE) H 01/13/20 08:57 Urine Glucose (UA) NEGATIVE mg/dL (NEGATIVE) 01/13/20 08:57 Urine Ketones TRACE mg/dL (NEGATIVE) H 01/13/20 08:57 Urine Blood MODERATE (NEGATIVE) H 01/13/20 08:57 Urine Nitrite (Reflex) NEGATIVE (NEGATIVE) 01/13/20 08:57 Urine Bilirubin NEGATIVE (NEGATIVE) 01/13/20 08:57 Urine Urobilinogen NEGATIVE mg/dL (<2.0) 01/13/20 08:57 Leukocyte Esterase Rfl NEGATIVE (NEGATIVE) 01/13/20 08:57 Urine RBC (Auto) 35 /HPF 01/13/20 08:57 Urine WBC (Reflex) 4 /HPF 01/13/20 08:57 Urine Mucus (Auto) RARE /LPF 01/13/20 08:57 Urine Ascorbic Acid NEGATIVE (NEGATIVE) 01/13/20 08:57 SARS-CoV-2 (PCR) NEGATIVE (NEGATIVE) 01/13/20 10:31 Slides for Path Review PATHOLOGIST REVIEWED 01/15/20 06:09 01/13/20 03:40 Troponin I < 0.012 NT-Pro-B Natriuret Pep 136 H Impressions: Chest X-Ray 01/13/20 00:00 IMPRESSION: Persistent small apical pneumothorax. Persistent opacification in the left having thorax with reduced volume. There could be a layered pleural effusion. There could be atelectasis. Chest X-Ray 01/13/20 03:32 IMPRESSION: Progressive atelectasis left hemithorax. Chest/Abdomen CTA 01/13/20 04:43 IMPRESSION: 1. Complete collapse of the left lung, secondary to obstruction of the left upper and lower lobe bronchi in the hilar region. The left upper lobe bronchus was also obstructed on the prior study, secondary to the known central malignancy. The left lower lobe bronchial obstruction is new compared to the prior study and may be related to be obstructing malignancy or mucous plugging. 2. Moderately sized left pleural effusion which is increased in size compared to the prior study. A trace right pleural effusion is also now visualized. 3. Interval enlargement of left axillary lymph nodes, suspicious for metastatic disease. 4. Large right posterior chest wall mass again demonstrated, with erosion of the right posterior 6th rib. The soft tissue mass is slightly decreased in size. 5. No evidence of pulmonary embolism. Chest X-Ray 01/13/20 14:56 IMPRESSION: Interval placement of a left-sided PleurX catheter. There is an apical pneumothorax. Chest X-Ray 01/14/20 06:35 IMPRESSION: Status post placement of a left-sided PleurX catheter. There is re- demonstration of left-sided pneumothorax that is unchanged. The increased diffuse opacity of the left hemithorax, the blunting of the left costophrenic sulcus, the obscuration of the left hemidiaphragm, and the asymmetric left-sided volume loss are unchanged. Plan Health Concerns: Patient with very advanced metastatic squamous cell carcinoma. Discharging to home hospice. Plan of Treatment: For hospice. After discussion with Dr. Bateman we will leave the Layne catheter in place. Supplies for the Pleurx catheter have been ordered. The patient will continue ciprofloxacin for an additional week. Goals: Comfortable transition to home with eventual passing with family present Time Spent: Greater than 30 Minutes Stroke Is this a Stroke Patient?: No Acute Heart Failure - Is this a Heart Failure Patient?: No
[2020-01-17 15:07] VITALS: BP 80/58
== END 2020-01-17 16:05 | disposition home health service (06) | DRG 180 ==
LOC: ER 02:55 → EH 08:22 → 3S 16:27
PROVIDERS: ADMIT Internal Medicine; ATTEND Hospitalist
PROC: 0W9B00Z Drainage of Left Pleural Cavity with Drainage Device, Open Approach (ICD-10-PCS; principal; 2020-01-13 16:45)
DX: C34.92 Malignant neoplasm of unspecified part of left bronchus or lung (principal); J96.21 Acute and chronic respiratory failure with hypoxia; C78.7 Secondary malignant neoplasm of liver and intrahepatic bile duct; C77.9 Secondary and unspecified malignant neoplasm of lymph node, unspecified; C79.51 Secondary malignant neoplasm of bone; J91.0 Malignant pleural effusion; J93.83 Other pneumothorax; J44.1 Chronic obstructive pulmonary disease with (acute) exacerbation; C34.91 Malignant neoplasm of unspecified part of right bronchus or lung; M19.90 Unspecified osteoarthritis, unspecified site; Z66 Do not resuscitate; I10 Essential (primary) hypertension; E89.0 Postprocedural hypothyroidism; R33.9 Retention of urine, unspecified; K52.9 Noninfective gastroenteritis and colitis, unspecified; Z20.828 Contact with and (suspected) exposure to other viral communicable diseases; Z79.899 Other long term (current) drug therapy; Z87.891 Personal history of nicotine dependence; I95.9 Hypotension, unspecified; Z99.81 Dependence on supplemental oxygen; N40.1 Benign prostatic hyperplasia with lower urinary tract symptoms; R39.11 Hesitancy of micturition
CPT/HCPCS: 00520; 36415; 71045; 71275; 80048; 80053; 81001; 82803; 83605; 83735; 83880; 84484; 85025; 85610; 85730; 87040; 87635; 93005; 93010; 94640; 96361; 96374; 99140; 99285; C9803; J1170; J1650; J2405; J2704; J2930; J3010; J3490; J7030; J7120; J7620